=== PATIENT | female | born 1950 | race Caucasian/White ===

== ENCOUNTER → 2018-07-01 11:00 | Outpatient (CLI) | payer MEDICARE, OTHER, MEDICAID, SELFPAY | PROVIDERS: PCP Family Medicine; Visit Provider Nurse Practitioner Family | DX: Z45.018 Encounter for adjustment and management of other part of cardiac pacemaker (principal); I49.5 Sick sinus syndrome; I10 Essential (primary) hypertension | CPT/HCPCS: 93280; 99213 ==

== ENCOUNTER 2018-09-19 07:00 | Outpatient (CLI) | payer MEDICARE, OTHER, MEDICAID, SELFPAY ==
[2018-09-19 11:22] LABS: Abs Immature Grans 0.02 k/cumm (0.0-0.09); Absolute Basophil Count 0.03 k/cumm (0.0-0.2); Absolute Eosinophil Count 0.12 k/cumm (0.0-0.7); Absolute Lymphocyte Count 1.11 k/cumm (1.2-3.4); Absolute Monocyte Count 0.48 k/cumm (0.11-0.7); Absolute Neutrophil Count 4.13 k/cumm (1.2-6.7); Basophils % 0.5; HCT 40.5 % (36.0-46.0); Immature Grans % 0.3; Lymphocytes % 18.8; Mean Corp. HGB Concentration 34.6 g/dL (32.0-36.0); Mean Corpuscular Volume 92.5 fL (80-95); Mean Platelet Volume 10.2 fL (8.0-11.0); Monocytes % 8.1; Neutrophils % 70.3; Platelet Count 196 x1000/uL (130-400); RBC 4.38 m/cumm (4.00-5.20); RBC Distribution Width 12.8 % (11.7-14.6); White Blood Cell Count 5.89 k/cumm (4.4-10.8)
[2018-09-19 11:35] LABS: ALT 24 U/L (12-78); AST 22 U/L (15-37); Albumin 3.4 g/dL (3.4-5.0); Alkaline Phosphatase 79 U/L (46-116); Anion Gap 9.5 mmol/L (3-11); BUN 11 mg/dL (7-18); Bilirubin, Total 0.7 mg/dL (0.2-1.0); CO2 30.5 mmol/L (21.0-32.0); CREATININE 0.76 mg/dL (0.55-1.02); Calcium 8.7 mg/dL (8.5-10.1); Chloride 101 mmol/L (98-107); Glucose 111 mg/dL (70-100); Potassium 3.3 mmol/L (3.5-5.1); Sodium 141 mmol/L (136-145)
== END 2018-09-19 07:20 ==
PROVIDERS: PCP Family Medicine; Visit Provider Nurse Practitioner Adult Health
DX: K58.9 Irritable bowel syndrome, unspecified (principal); C50.919 Malignant neoplasm of unspecified site of unspecified female breast
CPT/HCPCS: 36415; 80053; 85025

== ENCOUNTER 2018-10-08 00:58 | Outpatient (CLI) | payer MEDICARE, MEDICAID, SELFPAY ==
--- NOTE | 2018-10-08 08:01 | DI.CT_ITS ---
SYMPTOM/DIAGNOSIS: ABD PAIN, R10.9, VOMITING ABDOMEN AND PELVIC CT: Comparison is made with 06/17/17. Images were performed from the lung bases through the ischial tuberosities after IV and oral contrast. The previous anterior abdominal wall repair is seen which appears unchanged. No recurrent hernia is seen. There is no bowel dilatation or inflammatory changes. Suture material is again noted at the stomach. Pacemaker leads are seen. There are coronary artery calcifications. The heart size is normal. Dependent changes of mild atelectasis is seen at the lung bases. The patient is status post cholecystectomy. The liver, spleen, pancreas and right adrenal are unremarkable. There are stable left adrenal nodules. There are prominent renal pelves bilaterally, left greater than right, also unchanged. The uterus again appears mildly enlarged. The bladder is unremarkable. The aorta is normal in diameter. There are scattered tiny mesenteric lymph nodes, unchanged. IMPRESSION: No acute abnormality. Stable incidental findings as mentioned above.
[2018-10-08] MEDS: Breeza Beverage 473 ML BTL PO ×2 (08:38→08:39)
[2018-10-08] MEDS: Omnipaque 350 MG/ML 50 ML BTL PO (08:38)
[2018-10-08] MEDS: Omnipaque 350 MG/ML 100 ML BTL IJ (09:46)
== END 2018-10-08 01:18 ==
PROVIDERS: PCP Family Medicine; Visit Provider Family Medicine
DX: R10.9 Unspecified abdominal pain (principal); R11.10 Vomiting, unspecified; N85.2 Hypertrophy of uterus; Z90.49 Acquired absence of other specified parts of digestive tract
CPT/HCPCS: 74177; J3490; Q9967

== ENCOUNTER → 2019-02-03 14:09 | Outpatient (BNVA) | payer MEDICARE, OTHER, MEDICAID, SELFPAY | PROVIDERS: Visit Provider Nurse Practitioner Family | DX: G47.33 Obstructive sleep apnea (adult) (pediatric) (principal); I49.5 Sick sinus syndrome; I10 Essential (primary) hypertension; E66.01 Morbid (severe) obesity due to excess calories; Z45.018 Encounter for adjustment and management of other part of cardiac pacemaker | CPT/HCPCS: 93280; 99214 ==

== ENCOUNTER 2019-03-16 14:13 | Emergency (ER) | payer MEDICARE, MEDICAID, SELFPAY ==
[2019-03-16] VITALS (24 sets, daily range): BP systolic 120–151; BP diastolic 65–89; PULSE 61–71; RESP 13–24; TEMP 36.7; O2SAT 93–95
--- NOTE | 2019-03-16 15:01 | DI.US_ITS ---
SYMPTOMS/DIAGNOSIS: SWELLING, CALF TENDERNESS, ? DVT DUPLEX VENOUS ULTRASOUND, RIGHT LOWER EXTREMITY: Duplex evaluation of the deep venous system was performed according to the usual protocol. The deep veins are freely compressible throughout to the level of the popliteal veins. There is normal Doppler flow visible throughout and there is excellent flow augmentation with manual calf compression. CONCLUSION: No evidence of deep venous thrombosis.
[2019-03-16 15:16] LABS: Abs Immature Grans 0.01 k/cumm (0.0-0.09); Absolute Basophil Count 0.02 k/cumm (0.0-0.2); Absolute Eosinophil Count 0.12 k/cumm (0.0-0.7); Absolute Monocyte Count 0.55 k/cumm (0.11-0.7); Absolute Neutrophil Count 3.86 k/cumm (1.2-6.7); Basophils % 0.3; HCT 40.5 % (36.0-46.0); Immature Grans % 0.2; Lymphocytes % 23.5; Mean Corp. HGB Concentration 34.6 g/dL (32.0-36.0); Mean Corpuscular Hemoglobin 31.6 pg (27.0-33.0); Mean Corpuscular Volume 91.4 fL (80-95); Mean Platelet Volume 9.6 fL (8.0-11.0); Monocytes % 9.2; Neutrophils % 64.8; Platelet Count 218 x1000/uL (130-400); RBC 4.43 m/cumm (4.00-5.20); RBC Distribution Width 12.7 % (11.7-14.6); White Blood Cell Count 5.96 k/cumm (4.4-10.8)
[2019-03-16] MEDS: Aspirin 81 MG CHEW 324 MG CH (15:16)
--- NOTE | 2019-03-16 15:25 | NUR.NOTE ---
[employer] interrogation completed and transmitted, aware Nursing Note:
[2019-03-16 15:33] LABS: PTT Activated 25.1 sec (21.0-31.4); Prothrombin Time 9.5 sec (9.3-11.0)
[2019-03-16 15:41] LABS: ALT 29 U/L (12-78); AST 19 U/L (15-37); Albumin 3.7 g/dL (3.4-5.0); Alkaline Phosphatase 89 U/L (46-116); Anion Gap 6.8 mmol/L (3-11); BUN 12 mg/dL (7-18); Bilirubin, Total 0.8 mg/dL (0.2-1.0); CO2 31.2 mmol/L (21.0-32.0); CREATININE 0.72 mg/dL (0.55-1.02); Calcium 9.1 mg/dL (8.5-10.1); Chloride 102 mmol/L (98-107); Glucose 98 mg/dL (70-100); Lipase 88 U/L (73-393); NT-proBNP 62 pg/mL; Potassium 3.3 mmol/L (3.5-5.1); Sodium 140 mmol/L (136-145); TSH (W/Ref FT4) 0.59 uIU/mL (0.358-3.74); Total Protein 7.5 g/dL (6.4-8.2)
[2019-03-16 15:43] LABS: Troponin I < 0.02 ng/mL (0.00-0.06)
--- NOTE | 2019-03-16 15:43 | W.ED.GENAD ---
Discharge Plan Disposition Patient Disposition: HOME Condition: Good Discharge Details Chief Complaint: Chest Pain Clinical Impression: Chest pain Primary Care Provider: Serge Ventura ED Provider: Ritchie Walters Home Meds and New Rx's Prescriptions: No Action dicyclomine 10 mg capsule 10 mg PO AC Qty: 30 RF: 0 ondansetron 4 MG tablet,disintegrating 4 mg PO Q6H PRN PRNQty: 30 RF: 0 trazodone 50 MG tablet 50 mg PO PRN Qty: 90 RF: 4 pravastatin 20 MG tablet 20 mg PO HS Qty: 90 RF: 4 losartan 100 MG tablet 100 mg PO DAILY Qty: 90 RF: 4 cholecalciferol (vitamin D3) 1,000 unit capsule 2,000 unit PO DAILY Qty: 90 RF: 4 citalopram [Celexa] 20 mg tablet 20 mg PO DAILY Qty: 90 RF: 4 hydrochlorothiazide 25 mg tablet 25 mg PO DAILY Qty: 90 RF: 4 levothyroxine 125 mcg tablet 125 mcg PO DAILY Qty: 90 RF: 4 ibuprofen 600 MG tablet 600 mg PO Q6H Qty: 40 RF: 1 Discharge Instructions Instructions: Chest Pain (ED) Additional Instructions: Please follow-up with your primary care provider about the lung findings noted on your CT scan. If you notice any worsening of your symptoms, or any new symptoms such as vomiting, diarrhea, fever, chills, shortness of breath, chest pain, numbness, weakness, or fainting , please return immediately to the emergency department for reevaluation. Please follow up with your primary care provider as soon as possible for reassessment and reevaluation. As always, it was a pleasure participating in your medical care today. Referrals: Serge Ventura MD [Primary Care Provider] - Medical Decision Making This is a 68-year-old female with a past medical history of breast cancer 1999 [id number], sinus node disease requiring a pacemaker, chronic chest pain with a negative stress test 1 year ago, who presents today for evaluation of a brief episode of chest pain that occurred 1 hour ago and lasted 20 minutes while she was sitting. No exertional component, she describes it as a pinching sensation in her left chest. It went away on its own. She did have a mild associated pleuritic component with some mild shortness of breath. All of which is now resolved without intervention. She states that it feels similar to her chronic chest pain however the pleuritic and shortness of breath component does appear to be new. She denies any other concerning complaints of cough, fever, chills, hemoptysis, or other abnormalities. Initial EKG is benign for any evidence of ACS or significant abnormality. Ultrasound of the lower extremity demonstrates no evidence of DVT, d-dimer slightly elevated, we will get a CT angios for further evaluation and rule out PE. Signs and symptoms at this time appear inconsistent with cardiac etiology, especially if she is asymptomatic now. Pacemaker was interrogated and shows no evidence of acute events today or even recently. Initial troponin is negative, electrolytes are well within normal limits aside for slightly low potassium at 3.3 which we will correct with oral potassium. We will get a 3-hour troponin on the patient, repeat EKG at that time, and reassess 6:47 PM Initial troponin was normal, repeat troponin and serial EKGs are all within normal limits. CT angiogram demonstrates no evidence of PE, however radiology/virtual radiology does read a patchy groundglass opacities with 13 potential differentials. However the patient has no complaints of cough, continued shortness of breath, continued chest pain, chronic productive cough, hypoxemia, tachycardia, hypotension, trauma to her lungs, hemoptysis, or other etiology. Clinically she shows no signs of clinical pneumonia, clinical boop, clinical severe pulmonary edema. Stable vital signs, no evidence of respiratory distress whatsoever I do not feel that any emergent further pulmonary imaging is indicated, nor do I think there is an indication for admission. We will recommend close follow-up with her PCP about these pulmonary findings, however I feel it is most likely mild chronic lung disease rather than an acute process or etiology. Patient signs and symptoms are clinically inconsistent with ACS, dissection or PE or severe pneumonia. The patient is feeling much better and is asking to go home. She will be discharged home with close follow-up with her PCP I have extensively reviewed the treatment plan and discharge instructions with the patient. I have addressed all patient concerns at this time. The patient was made aware of what symptoms to monitor for that would warrant a return to the emergency department. Discussed the plan with the patient, they demonstrate verbal understanding and agreement with our assessment and plan at this time. EKG 15: 54 Rate 65, intervals normal, sinus rhythm, no significant ST elevations or depressions, T wave inversion is present in V1, Q waves in lead III and aVF. No other acute abnormality. EKG 18: 07 Rate 72, intervals normal, sinus rhythm, no significant ST elevation or depression, Q waves in lead III and aVF. No evidence of STEMI. CLINICAL HISTORY: 68 years old, female; Signs and symptoms; Other: Left cp with SOB and pleuritic cp w/ HX of cancer TECHNIQUE: Imaging protocol: Axial computed tomographic angiography images of the chest with intravenous contrast using CT angiography protocol. Coronal and sagittal reformatted images were created and reviewed. 3D rendering: MIP reconstructed images were created and reviewed. Radiation optimization: All CT scans at this facility use at least one of these dose optimization techniques: automated exposure control; mA and/or kV adjustment per patient size (includes targeted exams where dose is matched to clinical indication); or iterative reconstruction. Contrast material: OMNIPAQUE 350; Contrast volume: 100 ml; Contrast route: IV; COMPARISON: No relevant prior studies available. FINDINGS: Tubes, catheters and devices: Transvenous pacemaker leads Pulmonary arteries: No evidence of pulmonary embolus to the segmental level. Aorta: No aneurysm of the aorta. No dissection of the aorta. Lungs: Patchy bilateral groundglass opacities in the lung bolanos. Pleural space: Normal. No pneumothorax. No pleural effusion. Heart: Normal. No cardiomegaly. No pericardial effusion. Adrenals: Complex left adrenal nodule 3.3 cm Stomach and bowel: Large ventral hernia containing stomach and loops of bowel. Surgery of the stomach Lymph nodes: Unremarkable. No enlarged lymph nodes. Bones/joints: Unremarkable. No acute fracture. Soft tissues: Unremarkable. Other findings: . IMPRESSION: 1. No evidence of pulmonary embolus to the segmental level. 2. No aneurysm of the aorta. 3. No dissection of the aorta. 4. Patchy bilateral groundglass opacities in the lung bolanos.Differential includes UIP, DIP , BOOP, early interstitial lung disease; alveolitis in pneumocystis pneumonia, viral pneumonia, or mycoplasmal pneumonia or ARDS; edema; hypersensitivity pneumonia; pulmonary hemorrhage; partial atelectasis.. 5. Large ventral hernia containing stomach and loops of bowel. Dictated and Authenticated by: Claire Armas MD. Ordering:MADINA Dugan MD HPI General Date/Time Provider Initiated Documentation: 03/16/19 14:51. HPI Narrative: This is a 68-year-old female with a past medical history of breast cancer in [id number] with surgical excision, sinus node disease requiring pacemaker, high cholesterol, multiple previous abdominal surgeries for hernia related issues, as well as chronic chest pain with a negative stress test on , who presents today for evaluation of brief left-sided chest pain with a pleuritic component. The episode lasted 20 minutes, it occurred roughly 1 hour ago. It occurred while she was sitting in her chair. She describes it as a pinching-like sensation in her left chest with no radiation anywhere else. She denies any chest pressure, chest heaviness, bandlike sensation, abdominal pain, nausea, vomiting or diarrhea. She denies any arm neck or shoulder pain. She had an associated pleuritic component with mild shortness of breath when this occurred. She denies any cough, hemoptysis. She does admit to recent right-sided calf and leg pain which she states is also slightly atypical. She denies any history of PE or blood clot. She denies any previous history of myocardial infarction. She is not on blood thinners. She denies any recent long trips or surgeries or procedures. She denies any other complaints at this time. She denies any other associated factors. She states that although the symptoms are very similar to the normal chronic regular chest pain that she gets, there is slightly atypical because of the pleuritic breathing component. Related Data Home Medications Medication Instructions Recorded Confirmed ondansetron 4 mg PO Q6H PRN PRN #30 tabef 12/25/16 02/03/19 pravastatin 20 mg PO HS #90 tab-cap 03/25/18 02/03/19 trazodone 50 mg PO PRN #90 tab 03/25/18 02/03/19 ibuprofen 600 mg PO Q6H #40 tab 05/16/18 02/03/19 losartan 100 mg PO DAILY #90 tab-cap 06/12/18 02/03/19 cholecalciferol (vitamin D3) 1,000 2,000 unit PO DAILY #90 tab-cap 09/29/18 02/03/19 unit capsule dicyclomine 10 mg capsule 10 mg PO AC #30 cap 09/30/18 02/03/19 citalopram 20 mg tablet 20 mg PO DAILY #90 tab-cap 02/14/19 03/26/19 hydrochlorothiazide 25 mg tablet 25 mg PO DAILY #90 tab-cap 01/01/19 02/03/19 levothyroxine 125 mcg tablet 125 mcg PO DAILY #90 tab-cap 01/01/19 02/03/19 Previous Rx's Medication Instructions Recorded pravastatin 20 mg PO HS #90 tab-cap 03/25/18 trazodone 50 mg PO PRN #90 tab 03/25/18 ibuprofen 600 mg PO Q6H #40 tab 05/16/18 losartan 100 mg PO DAILY #90 tab-cap 06/12/18 cholecalciferol (vitamin D3) 1,000 2,000 unit PO DAILY #90 tab-cap 09/29/18 unit capsule dicyclomine 10 mg capsule 10 mg PO AC #30 cap 09/30/18 citalopram 20 mg tablet 20 mg PO DAILY #90 tab-cap 12/25/18 hydrochlorothiazide 25 mg tablet 25 mg PO DAILY #90 tab-cap 01/01/19 levothyroxine 125 mcg tablet 125 mcg PO DAILY #90 tab-cap 01/01/19 Allergies Allergy/AdvReac Type Severity Reaction Status Date / Time Penicillins Allergy Severe Skin Rash Unverified 03/16/19 14:39 nickel Allergy Intermediate SWELLING Unverified 03/16/19 14:39 furosemide Allergy Unknown Unverified 03/16/19 14:39 diphenhydramine AdvReac Severe RESTLESSNES Unverified 03/16/19 14:39 S ropinirole HCl [From Requip] AdvReac Severe Visual Unverified 03/16/19 14:39 Disturbances ciprofloxacin [From Cipro] AdvReac Intermediate Skin Rash Unverified 03/16/19 14:39 duloxetine AdvReac Intermediate DIARRHEA Unverified 03/16/19 14:39 lamotrigine AdvReac Intermediate NAUSEA/VOMI Unverified 03/16/19 14:39 TING Latex, Natural Rubber AdvReac Intermediate Skin Rash Unverified 03/16/19 14:39 lisinopril AdvReac Intermediate COUGH Unverified 03/16/19 14:39 codeine AdvReac Unknown WIRED Unverified 03/16/19 14:39 metoclopramide AdvReac Unknown hullucinati Unverified 03/16/19 14:39 ons General Stated Complaint: Chest Pain JACQUI: 2 Review of Systems Review of Systems All systems reviewed & are unremarkable except as noted in HPI and below PFSH Surgical History Breast, Mastectomy Bilateral section Cholecystectomy Dilation and curettage Endometrial Biopsy Excision, Lipoma HERNIA REPAIR Open Carpal Tunnel release Pacemaker (~2007) Replacement of total knee joint Stomach Stapled Family History Mother Essential hypertension Diabetes Personal history of malignant neoplasm Hyperlipidemia Father Diabetes Personal history of malignant neoplasm Sister Hyperlipidemia Sister Myalgia and myositis Sister Personal history of malignant neoplasm Celiac disease Hyperlipidemia Depression Sister Polycythemia vera Hyperlipidemia Celiac disease Paternal Grandfather Personal history of malignant neoplasm Alcohol abuse Maternal Grandmother Essential hypertension Personal history of malignant neoplasm Paternal Grandmother Personal history of malignant neoplasm Maternal Grandfather Heart disease Son Depression Son Depression Substance abuse Social History Smoking/Tobacco Use Status: Never Alcohol Intake: never Drug use: Never Substance use type: does not use What type of physical activity do you participate in: walking Duration: 15-30 minutes/day Frequency: 3-4 times per week Marie/Yazidism: [place] Witness Agree to transfusion: No Do you feel safe at home: Yes Do you feel safe in your relationship?: Yes Exam Narrative Exam Narrative: 1.Const: Well-nourished, Well-developed, appearing stated age 2.Eyes: PERRL, no conjunctival injection, and symmetrical lids. 3.ENT: Atraumatic external nose and ears. Moist MM. Neck: Symmetric, trachea midline, No thyromegaly. 4.CVS: +S1/S2, No murmurs or gallops. Peripheral pulses 2+ and equal in all extremities. Brisk capillary refill in all extremities. 5.RESP: Unlabored respiratory effort. Clear to auscultation bilaterally. No wheezes rales or rhonchi 6.GI: Soft, Nontender/Nondistended, No hepatosplenomegaly. No guarding or rebound. 7.MSK: Normocephalic/Atraumatic, Extremities w/o deformity. No cyanosis or clubbing, Normal movement of all extremities. No significant swelling or edema, no pitting edema. Mild reproducible tenderness over the right calf and right posterior knee. No evidence of deformity. Dorsalis pedis, posterior tibial pulses are +2 bilaterally, capillary refill is brisk. No evidence of significant abnormality on exam. 8.Skin: Warm, Dry. No rashes or lesions. 9.Neuro: patient intake coordinator II-XII grossly intact. Sensation grossly intact, no focal neurologic deficits. 10.Psych: (AAO) x3. Appropriate mood and affect Course Vital Signs Temperature 36.7 C 03/16/19 14:34 Pulse 71 03/16/19 14:34 Respiratory Rate 18 03/16/19 14:34 Blood Pressure 135/89 03/16/19 14:34 Pulse Oximetry 95 03/16/19 14:34 Temperature 36.7 C 03/16/19 14:34 Temperature Source Skin 03/16/19 14:34 Pulse 71 03/16/19 14:34 Respiratory Rate 18 03/16/19 14:34 Blood Pressure 135/89 03/16/19 14:34 Blood Pressure Position Supine 03/16/19 14:34 Pulse Oximetry 95 03/16/19 14:34 Oxygen Delivery Method Room Air 03/16/19 14:34 Oxygen Flow Rate 0 03/16/19 14:34 Pain Level 0 03/16/19 14:34 Lab/Test Results Lab/Test Results: Laboratory Tests Range/Units 03/16/19 03/16/19 15:06 15:06 WBC (4.4-10.8) k/cumm 5.96 RBC (4.00-5.20) m/cumm 4.43 Hgb (12.0-15.5) g/dL 14.0 Hct (36.0-46.0) % 40.5 MCV (80-95) fL 91.4 MCH (27.0-33.0) pg 31.6 MCHC (32.0-36.0) g/dL 34.6 RDW (11.7-14.6) % 12.7 Plt Count (130-400) x1000/uL 218 MPV (8.0-11.0) fL 9.6 Immature Gran % 0.2 Neutrophils % 64.8 Lymphocytes % 23.5 Monocytes % 9.2 Eosinophils % 2.0 Basophils % 0.3 Absolute Neutrophils (1.2-6.7) k/cumm 3.86 Absolute Lymphocytes (1.2-3.4) k/cumm 1.40 Absolute Monocytes (0.11-0.7) k/cumm 0.55 Absolute Eosinophils (0.0-0.7) k/cumm 0.12 Absolute Basophils (0.0-0.2) k/cumm 0.02 PT (9.3-11.0) sec 9.5 INR (0.9-1.1) 1.0 APTT (21.0-31.4) sec 25.1
[2019-03-16 15:47] LABS: D-Dimer 598 ng/mlFEU (<500)
--- NOTE | 2019-03-16 15:49 | DI.CT_ITS ---
SYMPTOM/DIAGNOSIS: LT CHEST PAIN WITH SOB, H/O CA PE CHEST CT: CT angiography was performed with multi slice acquisition and multi planar and 3D reconstruction. CT scan of the chest was performed according to pulmonary embolus protocol. Comparison is made with 01/19/11. Comparison CT scan of the abdomen is 06/17/17. There is no evidence of a pulmonary embolus. The thoracic aorta is normal in caliber. No evidence of aneurysm or dissection is seen. Heart size is within normal limits. No significant pericardial effusion is seen. Pacing leads are in place. There is no significant thoracic adenopathy, pleural effusion or pneumothorax identified. There are patchy diffuse ground glass opacities in the lungs. The tracheobronchial tree is unremarkable. The upper abdominal images show a midline anterior abdominal wall hernia containing unremarkable loops of bowel. There are post surgical changes seen in the stomach. There is a left adrenal nodule. This has been present on prior examinations of the abdomen including examination from 06/17/17. Degenerative changes are seen in the spine. IMPRESSION: 1. No evidence of a pulmonary embolus, thoracic aortic dissection or aneurysm. 2. Patchy bilateral ground glass opacities within the lungs. These findings are nonspecific but include pneumonitis including UIP, DIP and BOOP, interstitial lung disease, alveolitis, viral pneumonia or other atypical pneumonias, pulmonary hemorrhage, atelectasis or edema. Please correlate clinically. 3. Again seen a large ventral hernia containing loops of bowel.
[2019-03-16] MEDS: Omnipaque 350 MG/ML 100 ML BTL IJ (16:08)
[2019-03-16] MEDS: Normal Saline Flush 10 ML SYR IVP (16:09)
--- NOTE | 2019-03-16 16:56 | DI.VRAD_ITS ---
EXAM: CT Angiography Chest With Contrast EXAM DATE/TIME: 03/16/2019 3:50 PM CLINICAL HISTORY: 68 years old, female; Signs and symptoms; Other: Left cp with SOB and pleuritic cp w/ HX of cancer TECHNIQUE: Imaging protocol: Axial computed tomographic angiography images of the chest with intravenous contrast using CT angiography protocol. Coronal and sagittal reformatted images were created and reviewed. 3D rendering: MIP reconstructed images were created and reviewed. Radiation optimization: All CT scans at this facility use at least one of these dose optimization techniques: automated exposure control; mA and/or kV adjustment per patient size (includes targeted exams where dose is matched to clinical indication); or iterative reconstruction. Contrast material: OMNIPAQUE 350; Contrast volume: 100 ml; Contrast route: IV; COMPARISON: No relevant prior studies available. FINDINGS: Tubes, catheters and devices: Transvenous pacemaker leads Pulmonary arteries: No evidence of pulmonary embolus to the segmental level. Aorta: No aneurysm of the aorta. No dissection of the aorta. Lungs: Patchy bilateral groundglass opacities in the lung bolanos. Pleural space: Normal. No pneumothorax. No pleural effusion. Heart: Normal. No cardiomegaly. No pericardial effusion. Adrenals: Complex left adrenal nodule 3.3 cm Stomach and bowel: Large ventral hernia containing stomach and loops of bowel. Surgery of the stomach Lymph nodes: Unremarkable. No enlarged lymph nodes. Bones/joints: Unremarkable. No acute fracture. Soft tissues: Unremarkable. Other findings: . IMPRESSION: 1. No evidence of pulmonary embolus to the segmental level. 2. No aneurysm of the aorta. 3. No dissection of the aorta. 4. Patchy bilateral groundglass opacities in the lung bolanos.Differential includes UIP, DIP , BOOP, early interstitial lung disease; alveolitis in pneumocystis pneumonia, viral pneumonia, or mycoplasmal pneumonia or ARDS; edema; hypersensitivity pneumonia; pulmonary hemorrhage; partial atelectasis.. 5. Large ventral hernia containing stomach and loops of bowel. Dictated and Authenticated by: Claire Armas MD. Ordering:MADINA Dugan MD
[2019-03-16] MEDS: Potassium Chloride 20 MEQ TABCR 40 MEQ PO (18:19)
[2019-03-16 18:29] LABS: Troponin I < 0.02 ng/mL (0.00-0.06)
== END 2019-03-16 18:55 | disposition home or self-care (01) ==
PROVIDERS: Emergency Provider Student in an Organized Health Care Education/Training Program; PCP Family Medicine
DX: R07.9 Chest pain, unspecified (principal); G89.29 Other chronic pain; R06.02 Shortness of breath; R91.8 Other nonspecific abnormal finding of lung field; R79.89 Other specified abnormal findings of blood chemistry; M79.661 Pain in right lower leg; I10 Essential (primary) hypertension; Z95.0 Presence of cardiac pacemaker; C50.919 Malignant neoplasm of unspecified site of unspecified female breast
CPT/HCPCS: 36415; 71275; 80053; 83690; 93005; 99285; 83880; 84443; 84484; 85025; 85379; 85610; 85730; 93010; 93971; J3490

== ENCOUNTER 2019-05-07 08:47 | Outpatient (REF) | payer MEDICARE, MEDICAID, SELFPAY ==
[2019-05-07 10:00] LABS: Bilirubin Negative (Negative); Blood Small (Negative); Clarity Cloudy (Clear); Glucose Negative (Negative); Ketones Negative (Negative); Leukocyte Esterase Large (Negative); Nitrite Positive (Negative); Specific Gravity 1.025 (1.005-1.025); Urobilinogen 0.2 EU/dL (Up TO 0.2); pH 5.5 (5-8)
[2019-05-07 10:14] LABS: WBC >50 HPF (0-5)
[2019-05-07 10:16] LABS: C & S Indicated? Yes
== END 2019-05-07 09:07 ==
LOC: LBN 08:47
PROVIDERS: PCP Family Medicine; Visit Provider Family Medicine
DX: R10.9 Unspecified abdominal pain (principal)
CPT/HCPCS: 87077; 81003; 81015; 87086; 87186

== ENCOUNTER 2019-09-18 01:50 | Outpatient (CLI) | payer OTHER, MEDICAID, SELFPAY ==
[2019-09-18 10:55] LABS: HCT 41.3 % (36.0-46.0); HGB 13.9 g/dL (12.0-15.5); Mean Corp. HGB Concentration 33.7 g/dL (32.0-36.0); Mean Corpuscular Hemoglobin 31.4 pg (27.0-33.0); Mean Corpuscular Volume 93.4 fL (80-95); Mean Platelet Volume 10.4 fL (8.0-11.0); Platelet Count 234 x1000/uL (130-400); RBC 4.42 m/cumm (4.00-5.20); RBC Distribution Width 13.3 % (11.7-14.6); White Blood Cell Count 6.54 k/cumm (4.4-10.8)
[2019-09-18 11:25] LABS: Anion Gap 9.4 mmol/L (3-11); BUN 11 mg/dL (7-18); CO2 30.6 mmol/L (21.0-32.0); CREATININE 0.75 mg/dL (0.55-1.02); Calcium 8.7 mg/dL (8.5-10.1); Chloride 105 mmol/L (98-107); Glucose 110 mg/dL (70-100); Potassium 3.2 mmol/L (3.5-5.1); Sodium 145 mmol/L (136-145)
[2019-09-22 07:36] LABS: T3,Free 3.3 pg/mL (2.8-5.3)
== END 2019-09-18 02:10 ==
PROVIDERS: PCP Family Medicine; Visit Provider Family Medicine
DX: I10 Essential (primary) hypertension (principal); R53.83 Other fatigue; R79.89 Other specified abnormal findings of blood chemistry
CPT/HCPCS: 36415; 80048; 85027; 84481

== ENCOUNTER 2019-10-05 02:06 | Outpatient (CLI) | payer OTHER, MEDICAID, SELFPAY ==
--- NOTE | 2019-10-05 13:46 | DI.US_ITS ---
EXAM: US PELVIS AND TRANSVAGINAL CLINICAL HISTORY: PAIN REGION OF LEFT OVARY, LLQ ABDOMINAL PAIN, R10.32 TECHNIQUE: Ultrasound performed using standard protocol. CT CHEST PE CTA from 03/16/2019 FINDINGS: Exam is limited by the patient's body habitus. The uterus measures 6.9 x 2.8 x 4 cm. The endometria l stripe was not seen. There is no gross evidence of fibroids. The ovaries were not able to be visu alized. Kidneys appear normal in size. There are bilateral parapelvic renal cysts. IMPRESSION: Limited exam due to patient body habitus. The ovaries were not able to be visualized.
== END 2019-10-05 02:26 ==
PROVIDERS: PCP Family Medicine; Visit Provider Family Medicine
DX: R10.32 Left lower quadrant pain (principal); N28.1 Cyst of kidney, acquired
CPT/HCPCS: 76830; 76856

== ENCOUNTER 2020-01-04 08:35 | Outpatient (CLI) | payer OTHER, MEDICAID, SELFPAY ==
[2020-01-04 11:00] LABS: Anion Gap 10.4 mmol/L (3-11); BUN 13 mg/dL (7-18); CO2 28.6 mmol/L (21.0-32.0); CREATININE 0.79 mg/dL (0.55-1.02); Calcium 8.8 mg/dL (8.5-10.1); Chloride 104 mmol/L (98-107); Glucose 121 mg/dL (74-106); Potassium 3.4 mmol/L (3.5-5.1); Sodium 143 mmol/L (136-145)
[2020-01-04 16:47] LABS: Hemoglobin A1C 5.7 % (3.8-5.6)
== END 2020-01-04 08:55 ==
DX: I10 Essential (primary) hypertension (principal); R73.01 Impaired fasting glucose
CPT/HCPCS: 36415; 80048; 83036

== ENCOUNTER → 2020-01-27 08:22 | Outpatient (BNVA) | payer OTHER, MEDICAID, SELFPAY | PROVIDERS: Visit Provider Physician Assistant | DX: I49.5 Sick sinus syndrome (principal); I10 Essential (primary) hypertension; Z45.018 Encounter for adjustment and management of other part of cardiac pacemaker | CPT/HCPCS: 93280; 99211; 99213 ==

== ENCOUNTER 2020-04-29 16:43 | Outpatient (REF) | payer OTHER, MEDICAID, SELFPAY | END 2020-04-29 17:03 | LOC: LBN 16:43 | PROVIDERS: Visit Provider Family Medicine | DX: R30.0 Dysuria (principal) | CPT/HCPCS: 87077; 87086; 87186 ==

== ENCOUNTER 2020-06-03 02:10 | Outpatient (CLI) | payer OTHER, MEDICAID, SELFPAY ==
[2020-06-03 13:56] LABS: Abs Immature Grans 0.02 k/cumm (0.0-0.09); Absolute Basophil Count 0.01 k/cumm (0.0-0.2); Absolute Eosinophil Count 0.07 k/cumm (0.0-0.7); Absolute Lymphocyte Count 1.67 k/cumm (1.2-3.4); Absolute Monocyte Count 0.59 k/cumm (0.11-0.7); Absolute Neutrophil Count 4.29 k/cumm (1.2-6.7); Basophils % 0.2; Eosinophils % 1.1; HCT 39.8 % (36.0-46.0); HGB 13.8 g/dL (12.0-15.5); Immature Grans % 0.3 %; Lymphocytes % 25.1; Mean Corp. HGB Concentration 34.7 g/dL (32.0-36.0); Mean Corpuscular Hemoglobin 31.9 pg (27.0-33.0); Mean Corpuscular Volume 92.1 fL (80-95); Mean Platelet Volume 9.7 fL (8.0-11.0); Monocytes % 8.9; Neutrophils % 64.4; Platelet Count 235 x1000/uL (130-400); RBC 4.32 m/cumm (4.00-5.20); RBC Distribution Width 12.9 % (11.7-14.6); White Blood Cell Count 6.65 k/cumm (4.4-10.8)
[2020-06-03 14:10] LABS: Hemoglobin A1C 5.7 % (3.8-5.6)
[2020-06-03 14:38] LABS: D-Dimer 475 ng/mlFEU (<500)
[2020-06-03 14:58] LABS: ALT 28 U/L (14-59); AST 21 U/L (15-37); Albumin 3.6 g/dL (3.4-5.0); Alkaline Phosphatase 92 U/L (46-116); Anion Gap 10.6 mmol/L (3-11); BUN 14 mg/dL (7-18); Bilirubin, Total 0.8 mg/dL (0.2-1.0); CO2 27.4 mmol/L (21.0-32.0); Calcium 9.3 mg/dL (8.5-10.1); Calculated LDL 102 mg/dL (<100); Chloride 104 mmol/L (98-107); Cholesterol 204 mg/dL (<200); Glucose 137 mg/dL (74-106); HDL Cholesterol 56 mg/dL (40-60); Potassium 3.4 mmol/L (3.5-5.1); Sodium 142 mmol/L (136-145); TSH (W/Ref FT4) 0.58 uIU/mL (0.36-3.74); Triglyceride 232 mg/dL (<150)
== END 2020-06-03 02:30 ==
PROVIDERS: Visit Provider Nurse Practitioner Family
DX: E03.9 Hypothyroidism, unspecified (principal); E66.01 Morbid (severe) obesity due to excess calories; E78.5 Hyperlipidemia, unspecified; F32.9 Major depressive disorder, single episode, unspecified; G47.33 Obstructive sleep apnea (adult) (pediatric); I10 Essential (primary) hypertension; K21.0 Gastro-esophageal reflux disease with esophagitis; R73.01 Impaired fasting glucose; Z95.0 Presence of cardiac pacemaker; G47.00 Insomnia, unspecified; Z01.818 Encounter for other preprocedural examination; R06.02 Shortness of breath
CPT/HCPCS: 36415; 80048; 80053; 80061; 83036; 84443; 85025; 85379

== ENCOUNTER 2020-06-09 00:39 | Outpatient (CLI) | payer OTHER, MEDICAID, SELFPAY ==
--- NOTE | 2020-06-09 09:00 | ETT_ITS ---
APPROVED REPORT Exam: Exercise Treadmill Patient Location: Out-Patient Room/Bed: Stress Nurse: Jayashree Baker RN BMI: 48.46 Baseline Rhythm: Sinus Rhythm Comment: 12/21 left lateral chest tightness on arrival. Indications: Chest Pain, Pre-Operative CV Evaluation, CAD, Dyspnea, SOB Medical History Medical History: Arrhythmia, CAD non obstructive, HTN, Hyperlipidemia, Pacemaker in situ, Obesity , O bstructive sleep apnea Cardiac Medications: Hydrochlorothiazide/ Microzide, Oretic, Losartan, Pravastatin Allergies: pcn, nickel, furosemide, diphenhydramine, ropinrole, ciprofloxacin, duloxetine,lamotrigine , latex, lisinopril, codeine, metoclopramide. Cardiac Risk Factors: HTN, Hyperlipidemia, FHX of CAD, SOB, Asthma, CVD Previous Cardiac Procedures: Pacemaker Pretest Chest Pain Characteristics: Non-exertional Chest pain, Dyspnea Exercise History: Sedentary Lung Sounds: Clear to auscultation Heart Sounds: Regular Stress Test Details Test: Exercise stress testing was performed using a Ru protocol. Rest Stress HR Resting HR Supine: 75 bpm Max Heart Rate (APMHR): 151 bpm Resting HR Standin bpm Target HR (85% APMHR): 128 bpm Max HR Achieved: 138 bpm % of APMHR: 91 Recovery HR: 85 bpm HR response to stress: Accelerated HR response to stress BP Resting BP Supine: 130/78 mmHg Resting BP Standin/80 mmHg Max BP: 160/100 mmHg Recovery BP: 138/96 mmHg BP response to stress: Normal blood pressure response to stress. ECG Resting ECG: Sinus Rhythm Stress ECG: Sinus Tachycardia Maximum ST Deviation: 1.2 mm Arrhythmia: None Recovery ECG: Sinus Rhythm Recovery Arrhythmia: None Clinical Reason for Termination: Fatigue, Chest pain/Anginal equivalent, Dyspnea, Target HR Achieved Stress Symptoms: Chest pain, Dyspnea Exercise duration: 1 min33 sec Highest Stage Reached: 1 Exercise capacity: 3.56 METs Functional Capacity: Markedly diminished capacity Stress ECG Conclusion 1. The resting electrocardiogram was within normal limits 2. Patient exercised on the Ru protocol and completed a workload of 3.56 METS. This demonstrates poor exercise tolerance. 3. Rapid heart rate increase with activity suggests deconditioning. The patient did achieve 91% of p redicted heart rate for age 4. Normal blood pressure response to exercise 5. Electrocardiographically the test was negative for myocardial ischemia 6. There were no significant dysrhythmias Critical Notification Critical Value: No
== END 2020-06-09 00:59 ==
PROVIDERS: Visit Provider Nurse Practitioner Family
DX: R07.9 Chest pain, unspecified (principal); Z01.810 Encounter for preprocedural cardiovascular examination; I25.10 Atherosclerotic heart disease of native coronary artery without angina pectoris; E66.9 Obesity, unspecified; G47.33 Obstructive sleep apnea (adult) (pediatric); I10 Essential (primary) hypertension; Z95.0 Presence of cardiac pacemaker
CPT/HCPCS: 93016; 93018; 93017

== ENCOUNTER → 2020-07-08 10:09 | Outpatient (BNVA) | payer OTHER, MEDICAID, SELFPAY | PROVIDERS: Visit Provider Internal Medicine Cardiovascular Disease | DX: I49.5 Sick sinus syndrome (principal); Z95.0 Presence of cardiac pacemaker; Z01.810 Encounter for preprocedural cardiovascular examination | CPT/HCPCS: 99202; 99214 ==

== ENCOUNTER → 2020-08-17 08:22 | Outpatient (BNVA) | payer OTHER, MEDICAID, SELFPAY | PROVIDERS: Visit Provider Internal Medicine Cardiovascular Disease | DX: I49.5 Sick sinus syndrome (principal); R00.2 Palpitations; Z45.010 Encounter for checking and testing of cardiac pacemaker pulse generator [battery] | CPT/HCPCS: 93279; 99212 ==

== ENCOUNTER 2020-09-06 00:57 | Outpatient (CLI) | payer OTHER, MEDICAID, SELFPAY ==
--- NOTE | 2020-09-06 09:15 | DI.CT_ITS ---
EXAM: CT CHEST WO CLINICAL HISTORY: DYSPNEA,R06.00 TECHNIQUE: COMPARISON: CT CT CHEST PE CTA from 03/16/2019 FINDINGS: CT examination of the chest was performed without contrast administration. Images obtained through the upper abdomen show large ventral hernia containing portions of stomach an d bowel. There is prior gastric surgery and there is a prior cholecystectomy.. There is a stable 33 millimeter in diameter left adrenal mass containing macroscopic fat consistent with a benign adenoma .. An additional 13 millimeter left adrenal nodule is also seen, these findings are unchanged from p rior CT of March 2019. Visualized liver, spleen, and pancreas are unremarkable. There is cardiac pacemaker in position. There is no mediastinal or hilar adenopathy. Tracheobronchi al tree appears intact. The lungs are clear except for a small calcified right upper lobe pulmonary nodule.. No pleural based mass or pleural effusion. Pulmonary architecture as visualized appears un remarkable. There is a 42 millimeter in diameter ectatic ascending aorta. IMPRESSION: No evidence of acute process. Incidental findings as described above. RADIATION DOSE DELIVERED: 778.71mGy.cm Total DLP
== END 2020-09-06 01:17 ==
PROVIDERS: Visit Provider Internal Medicine
DX: R06.00 Dyspnea, unspecified (principal); Z95.0 Presence of cardiac pacemaker; K43.9 Ventral hernia without obstruction or gangrene
CPT/HCPCS: 71250

== ENCOUNTER → 2020-09-14 13:12 | Outpatient (BNVA) | payer OTHER, MEDICAID, SELFPAY | PROVIDERS: Visit Provider Internal Medicine Cardiovascular Disease | DX: I49.5 Sick sinus syndrome (principal); Z45.018 Encounter for adjustment and management of other part of cardiac pacemaker; T81.89XA Other complications of procedures, not elsewhere classified, initial encounter; R60.9 Edema, unspecified; R00.2 Palpitations | CPT/HCPCS: 93280; 99212 ==

== ENCOUNTER 2020-09-16 04:17 | Outpatient (CLI) | payer OTHER, MEDICAID, SELFPAY ==
--- NOTE | 2020-09-16 07:55 | DI.RAD_ITS ---
EXAM: XR CHEST 2V PA LATERAL CLINICAL HISTORY: examine pacemaker site for foreign body,SWELLING SURGICAL SITE,T81.89XA, TECHNIQUE: 2D digital imaging was performed. COMPARISON: No exams were available for comparison FINDINGS: MEDIASTINUM: Normal. HEART: Normal. PULMONARY VASCULATURE: Normal. LUNGS: Clear. PLEURAL SPACE: No pleural effusion or pneumothorax. BONE:Within normal limits for the patient's age. OTHER FINDINGS:Transvenous cardiac pacing device in good position. No radiopaque foreign bodies in t he soft tissues. IMPRESSION: No acute pulmonary findings. DATA REPOSITORY: RADIATION DOSE DELIVERED:
== END 2020-09-16 04:37 ==
PROVIDERS: Visit Provider Internal Medicine Cardiovascular Disease
DX: T81.89XA Other complications of procedures, not elsewhere classified, initial encounter (principal); Z95.0 Presence of cardiac pacemaker; M79.89 Other specified soft tissue disorders
CPT/HCPCS: 71046

== ENCOUNTER 2020-09-16 13:58 | Outpatient (REF) | payer OTHER, MEDICAID, SELFPAY | END 2020-09-16 14:18 | LOC: LBN 13:58 | PROVIDERS: Visit Provider Nurse Practitioner Family | DX: R35.0 Frequency of micturition (principal) | CPT/HCPCS: 87077; 87086; 87186 ==

== ENCOUNTER 2021-01-17 20:03 | Outpatient (REF) | payer OTHER, MEDICAID, SELFPAY ==
[2021-01-17 22:11] LABS: HGB 13.8 g/dL (11.2-15.7); MCHC 34.5 % (32.0-36.0); MCV 92.8 fL (80-95); MPV 10.9 fL (8.0-11.0); Platelet Count 227 10^3/uL (130-400); RBC 4.31 10^6/uL (3.93-5.22); RDW 12.6 % (11.7-14.6); RDW-SD 42.7 fL; WBC 6.12 10^3/uL (4.4-10.8)
[2021-01-17 22:28] LABS: ALT 34 U/L (14-59); AST 23 U/L (15-37); Albumin 3.7 g/dL (3.4-5.0); Alkaline Phosphatase 98 U/L (46-116); Anion Gap 9.2 mmol/L (3-11); BUN 12 mg/dL (7-18); Bilirubin, Total 0.7 mg/dL (0.2-1.0); CO2 28.8 mmol/L (21.0-32.0); CREATININE 0.8 mg/dL (0.55-1.02); Calcium 9.2 mg/dL (8.5-10.1); Chloride 104 mmol/L (98-107); Glucose 113 mg/dL (74-106); Potassium 3.9 mmol/L (3.5-5.1); Sodium 142 mmol/L (136-145); Vitamin B12 1952 pg/mL (193-986)
[2021-01-17 22:34] LABS: TSH (W/Ref FT4) 0.69 uIU/mL (0.36-3.74)
== END 2021-01-17 20:04 | disposition home or self-care (01) ==
LOC: NCHCN 20:03
PROVIDERS: PCP Nurse Practitioner Family; Visit Provider Family Medicine
DX: R60.0 Localized edema (principal); E53.8 Deficiency of other specified B group vitamins; R73.01 Impaired fasting glucose; E87.6 Hypokalemia; E03.9 Hypothyroidism, unspecified
CPT/HCPCS: 80053; 85027; 82607; 84443

== ENCOUNTER → 2021-01-25 12:46 | Outpatient (BNVA) | payer OTHER, MEDICAID, SELFPAY | PROVIDERS: PCP Nurse Practitioner Family; Visit Provider Physician Assistant | DX: I49.5 Sick sinus syndrome (principal); Z45.018 Encounter for adjustment and management of other part of cardiac pacemaker | CPT/HCPCS: 93280 ==

== ENCOUNTER → 2021-07-26 10:34 | Outpatient (BNVA) | payer OTHER, MEDICAID, SELFPAY | PROVIDERS: PCP Nurse Practitioner Family; Referring Provider Nurse Practitioner Family; Visit Provider Physician Assistant | DX: I49.5 Sick sinus syndrome (principal); R00.2 Palpitations; Z45.018 Encounter for adjustment and management of other part of cardiac pacemaker | CPT/HCPCS: 93280; 99212 ==

== ENCOUNTER → 2021-08-03 14:01 | Outpatient (BNVA) | payer MEDICARE, MEDICAID, SELFPAY | PROVIDERS: Visit Provider Internal Medicine Cardiovascular Disease | DX: R00.2 Palpitations (principal); Z95.0 Presence of cardiac pacemaker; I10 Essential (primary) hypertension | CPT/HCPCS: 99213 ==

== ENCOUNTER 2021-08-07 07:11 | Outpatient (CLI) | payer OTHER, MEDICAID, SELFPAY ==
--- OUTSIDE RECORDS SUMMARY | 2021-08-07 07:16 | XMS_ITS ---
:1950 Author Care Team Providers Name Role Phone JATINDER CALIXTO Primary Care Provider [phone] Allergies Code Code System Name Reaction Severity Status Onset 2551 RxNorm Ciprofloxacin ? ? Active ? 2670 RxNorm Codeine ? ? Active ? 3498 RxNorm Diphenhydramine ? ? Active ? 18693 RxNorm Duloxetine ? ? Active ? 2763 RxNorm Furosemide ? ? Active ? 32094 RxNorm Lamotrigine ? ? Active ? [id number] RxNorm Latex ? ? Active ? 06591 RxNorm Lisinopril ? ? Active ? 6915 RxNorm Metoclopramide ? ? Active ? [id number] RxNorm Nickel ? ? Active ? Penicillins ? ? Active ? 32785 RxNorm Ropinirole ? ? Active ? Medications Name Status Start Date Stop Date ? ? Boostrix Tdap 2.5 Lf unit-8 mcg-5 Active ? Not available Lf/0.5 mL intramuscular syringe hydrochlorothiazide 25 mg tablet Active ? Not available levothyroxine 125 mcg tablet Active ? Not available losartan 100 mg tablet Active ? Not avail able nitrofurantoin Active ? Not available monohydrate/macrocrystals 100 mg capsule nortriptyline 10 mg capsule Active ? Not available potassium chloride ER 10 mEq Active ? Not available tablet,extended release potassium chloride ER 20 mEq Active ? Not available tablet,extended release pravastatin 20 mg tablet Active ? Not clint ilable ProAir HFA 90 mcg/actuation aerosol inhaler Active ? Not available Inhale 2 puffs every 4 hours by inhalation route. sulfamethoxazole 800 Active ? Not availab le mg-trimethoprim 160 mg tablet zolpidem 5 mg tablet Completed 11/21/2017 11/22/2017 1 (one) Tablet: as directed Problems Name Status Onset Date Source ? Dyspnea Active 09/02/2020 ? Hypothyroidism Active ? History Hyperlipidemia Active ? History Depressive Disorder Active ? History Hypersomnia Active ? History Obstructive Sleep Apnea Syndrome Active ? History Restless Legs Active ? History Joint Pain Active ? History Dizziness and Giddiness Active ? History Sleep Disorder Active ? History Irregular Sleep-wake Pattern Active ? His tory Snoring Active ? History Nausea Active ? History Cardiac Pacemaker in Situ Active ? Histor y Procedure by Method Unknown ? History Procedures Date Name Performed by ? ? Cardiac Surgery Information not avai lable Notes: Pacemaker placement ? Cholecystectomy Information not avai lable ? Gastric Bypass Information not avai lable ? Hernia Repair Information not avai lable ? Orthopedic Surgery Information not avai lable Notes: bilateral 09/02/2020 CT, Chest, W/o Contrast Xray [facility] [address] [place], [place] [address] (Work Place) Results Lab Results None recorded. Past Encounters 09/09/2020 Dyspnea; Obstructive Sleep Apnea Syndrom e Becca Britton MD: [address] [place] [address] Dr [address] [phone], Ph. 09/02/2020 Dyspnea; Obstructive Sleep Apnea Syndrom e Becca Britton MD: [address] [place] [address] Dr [address] [phone], Ph. Social History Tobacco Smoking Status Never Smoker Vaccine List Vaccine Type influenza, injectable, quadrivalent 10/01/2019 pneumococcal polysaccharide PPV23 11/11/2003 12/28/2019 Td (adult) 11/11/2006 Tdap 12/28/2019 Plan of Care Reminders Provider Appointments None ? ? recorded. Lab None ? ? recorded. Referral None ? ? recorded. Procedures None ? ? recorded. Surgeries None ? ? recorded. Imaging None ? ? recorded. Vitals 09/09/2020 11:30AM Office 15 Height Weight BMI Blood Pressure 151.13 cm 111.3 kg 48.7 kg/m2 136/76 mm[Hg] 09/02/2020 10:45AM Office 15 Height Weight BMI Blood Pressure 151.13 cm 111.3 kg 48.7 kg/m2 128/70 mm[Hg] 11/21/2017 Height Weight Blood Pressure 149.23 cm 108.41 kg 120/74 mm[Hg] 02/18/2013 Height Weight Blood Pressure 151.13 cm 114.08 kg 124/74 mm[Hg] 01/07/2013 Height Weight Blood Pressure 151.13 cm 114.31 kg 124/72 mm[Hg]
--- NOTE | 2021-08-25 08:46 | W.ZIOMONITOR ---
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 Predominant rhythm was sinus with an average heart rate of 75. Minimum was 65, maximum 113 There were very rare ventricular ectopic beats There were very rare atrial premature beats A total of 8 self-limited atrial runs occurred, the longest of which was 19 beats in duration. These were asymptomatic. There was no atrial fibrillation. There was negligible paced rhythm Patient triggered symptoms did not correspond to any dysrhythmia
== END 2021-08-07 07:12 | disposition home or self-care (01) ==
LOC: RT 07:14
PROVIDERS: PCP Physician Assistant; Visit Provider Internal Medicine Cardiovascular Disease
DX: R00.2 Palpitations (principal); Z95.0 Presence of cardiac pacemaker
CPT/HCPCS: 93246

== ENCOUNTER 2021-08-25 08:46 | Outpatient (CLI) | payer OTHER, MEDICAID, SELFPAY | END 2021-08-25 08:47 | LOC: CARDO 08-29 10:31 | PROVIDERS: PCP Physician Assistant; Referring Provider Internal Medicine Cardiovascular Disease; Visit Provider Internal Medicine Cardiovascular Disease | DX: R00.2 Palpitations (principal); Z95.0 Presence of cardiac pacemaker; I49.1 Atrial premature depolarization | CPT/HCPCS: 93248 ==

== ENCOUNTER 2021-10-03 14:17 | Outpatient (CLI) | payer OTHER, MEDICAID, SELFPAY ==
--- NOTE | 2021-10-03 | DI.CT_ITS ---
Exam(s) CT ABDOMEN PELVIS W EXAM: CT ABDOMEN PELVIS W INDICATION: ABD PAIN, R10.9, HERNIA REPAIR WITH MESH, ADHESIONS,DIARRHEA, INCREASING PA. COMPARISON: CT CT CHEST PE CTA from 03/16/2019 TECHNIQUE: FINDINGS: CT examination of the abdomen and pelvis was performed with a bolus infusion of 100 cc of Omnipaque 3 50. Images obtained through the lung bases are unremarkable Note is made pacer wires. There is coronary calcification. There are multiple vascular clips at. T here is a cholecystectomy.. The liver is unremarkable in appearance. bile ducts are CT normal. Pancreas appears normal. Spleen is unremarkable in appearance. Previously noted fat containing left adrenal lesions are again seen, no change in appearance comparis on prior CT of March 2019. There are apparent bilateral parapelvic renal cysts. No hydronephrosis. Nonobstructing left nephrol ithiasis noted. No ureteral calcification. Urinary bladder is essentially empty. Abdominal aorta is of normal diameter and no major vascular abnormality is seen. There is apparent prior abdominal wall ventral hernia repair with mesh in place. No recurrent hernia . No bowel obstruction.. No abdominal or pelvic adenopathy. BOAT MASTER structures appear intact. Appendix is not specifically visualized but there is no evidence of appendicitis.. No evidence of di verticulitis or bowel obstruction. IMPRESSION: No evidence of acute intra-abdominal process. RADIATION DOSE DELIVERED: 1,297.42mGy.cm Total DLP 1,297.42mGy.cm Total DLP CTDIvol RADIATION OPTIMIZATION: All CT scans at this facility use at least one of these dose optimization te chniques: automated exposure control; mA and/or kV adjustment per patient size (includes targeted exa ms where dose is matched to clinical indication); or iterative reconstruction.
[2021-10-03 15:10] LABS: Abs Immature Grans 0.02 10^3/uL (0.0-0.06); Absolute Basophil Count 0.03 10^3/uL (0.0-0.2); Absolute Eosinophil Count 0.11 10^3/uL (0.0-0.7); Absolute Lymphocyte Count 1.34 10^3/uL (1.2-3.4); Absolute Monocyte Count 0.65 10^3/uL (0.1-0.8); Absolute Neutrophil Count 5.46 10^3/uL (1.2-6.7); Basophils % 0.4; Eosinophils % 1.4; HGB 14.1 g/dL (11.2-15.7); Immature Grans % 0.3; Lymphocytes % 17.6; MCH 30.9 pg (27.0-33.0); MCHC 34.4 % (32.0-36.0); MCV 89.7 fL (80-95); MPV 10.5 fL (8.0-11.0); Monocytes % 8.5; Neutrophils % 71.8; Nucleated RBC 0 %; Platelet Count 167 10^3/uL (130-400); RBC 4.57 10^6/uL (3.93-5.22); RDW 12.7 % (11.7-14.6); WBC 7.61 10^3/uL (4.4-10.8)
[2021-10-03] MEDS: Omnipaque 350 MG/ML 50 ML BTL PO (15:15)
[2021-10-03] MEDS: Breeza Beverage 473 ML BTL PO (15:15)
[2021-10-03 15:19] LABS: ALT 48 U/L (14-59); AST 42 U/L (15-37); Albumin 3.6 g/dL (3.4-5.0); Alkaline Phosphatase 101 U/L (46-116); Anion Gap 6.6 mmol/L (3-11); BUN 15 mg/dL (7-18); Bilirubin, Total 0.5 mg/dL (0.2-1.0); CO2 28.4 mmol/L (21.0-32.0); CREATININE 0.8 mg/dL (0.55-1.02); Calcium 8.8 mg/dL (8.5-10.1); Chloride 104 mmol/L (98-107); Glucose 111 mg/dL (74-106); Potassium 3.6 mmol/L (3.5-5.1); Sodium 139 mmol/L (136-145); Total Protein 7.6 g/dL (6.4-8.2)
[2021-10-03] MEDS: Omnipaque 350 MG/ML 100 ML BTL IV (16:45)
[2021-10-03] MEDS: Normal Saline Flush 10 ML SYR IVP (16:47)
--- NOTE | 2021-10-03 17:26 | DI.VRAD_ITS ---
PROCEDURE INFORMATION: Exam: CT Abdomen And Pelvis With Contrast Exam date and time: 10/03/2021 2:05 PM Age: 71 years old Clinical indication: Other: Abd pain, r10.9, hernia repair with mesh, adhesions, diarrhea, increasing pa TECHNIQUE: Imaging protocol: Computed tomography of the abdomen and pelvis with contrast. Radiation optimization: All CT scans at this facility use at least one of these dose optimization techniques: automated exposure control; mA and/or kV adjustment per patient size (includes targeted exams where dose is matched to clinical indication); or iterative reconstruction. Contrast material: OMNIPAQUE 350; Contrast volume: 100 ml; Contrast route: INTRAVENOUS (IV); Other technique: GI contrast given. COMPARISON: CT Abdomen^ROUTINE ABDOMEN PELVIS WITH CONTRAST (Adult) 10/08/2018 9:31 AM FINDINGS: Tubes, catheters and devices: Pacemaker wire in place. Status post abdominal wall hernia repair with mesh placement, unchanged in appearance from previous exam. There do appear to be some bowel loops fixed anteriorly, unchanged. Liver: Hepatomegaly. No mass. Gallbladder and bile ducts: Status post cholecystectomy. Pancreas: Normal. No ductal dilation. Spleen: Normal. No splenomegaly. Adrenal glands: Mixed attenuation left adrenal lesions not significantly changed from prior study. The largest measures 3.5 cm. 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 Kidneys and ureters: Bilateral parapelvic renal cysts are unchanged. Stomach and bowel: See Tubes, catheters and devices finding. Appendix: No evidence of appendicitis. Intraperitoneal space: Unremarkable. No free air. No significant fluid collection. Vasculature: Unremarkable. No abdominal aortic aneurysm. Lymph nodes: Unremarkable. No enlarged lymph nodes. Urinary bladder: Bladder not well distended. Reproductive: Unremarkable as visualized. Bones/joints: Unremarkable. No acute fracture. Soft tissues: Calcifications in the subcutaneous fat of the flank regions presumably related to previous injection granulomas. IMPRESSION: Postsurgical changes, stable. No acute abnormality evident. Dictated and Authenticated by: Taryn Wan MD. Ordering:SPRING Del Real MD
== END 2021-10-03 14:37 ==
PROVIDERS: PCP Physician Assistant; Visit Provider Nurse Practitioner Family
DX: R10.9 Unspecified abdominal pain (principal)
CPT/HCPCS: 80053; 74177; 85025; J3490; Q9967

== ENCOUNTER 2021-12-07 02:28 | Outpatient (CLI) | payer MEDICARE, MEDICAID, SELFPAY ==
--- NOTE | 2021-12-07 | DI.DEXA_ITS ---
Exam(s) XR DEXA BONE DENSITY W/WO MACARIO EXAM: XR DEXA BONE DENSITY W/WO MACARIO CLINICAL HISTORY: OTHER SPECIFIED DISORDERS OF BONE DENSITY AND STRUCTURE, M85.88 TECHNIQUE: COMPARISON: Comparison 10/26/2009 and 05/15/2006 FINDINGS: Lateral Spine Image: Unremarkable. No compression deformities identified. Left hip: Total T-Score: -0.9. This compares to -0.7 on the prior examination. Total Z-Score: 0.6 T- and Z-scores: Within normal limits. Lumbar Spine: Total T-Score: -0.7. This compares to 0.3 on the prior examination. Total Z-Score: 1.5 T- and Z-scores: Within normal limits. IMPRESSION: No evidence of osteoporosis in the lumbar spine or left hip.
== END 2021-12-07 02:48 ==
PROVIDERS: PCP Physician Assistant; Visit Provider Physician Assistant
DX: M85.88 Other specified disorders of bone density and structure, other site (principal)
CPT/HCPCS: 77080

== ENCOUNTER 2022-05-25 16:20 | Outpatient (REF) | payer MEDICARE, MEDICAID, SELFPAY ==
[2022-05-25 21:00] LABS: Bilirubin Negative (Negative); Blood Trace-intact (Negative); Clarity Cloudy (Clear); Glucose Negative (Negative); Ketones Negative (Negative); Leukocyte Esterase Small (Negative); Nitrite Positive (Negative); Specific Gravity >= 1.030 (1.005-1.025); Urobilinogen 0.2 EU/dL (Up TO 0.2)
[2022-05-25 21:13] LABS: Bacteria Packed HPF (Negative); C & S Indicated? C&S Done As Ordered; Crystals Few Calcium Oxalate HPF (Negative); Epithelial Cells Negative HPF (Negative); Mucus Negative (Negative); Other Cells Few Transitional (Negative); RBC 0-2 HPF (0-2); WBC >50 HPF (0-5)
== END 2022-05-25 16:21 | disposition home or self-care (01) ==
LOC: LBN 16:20
PROVIDERS: PCP Physician Assistant; Visit Provider Physician Assistant Medical
DX: N39.0 Urinary tract infection, site not specified (principal)
CPT/HCPCS: 87077; 81003; 81015; 87086; 87186

== ENCOUNTER 2022-05-27 15:34 | Outpatient (REF) | payer MEDICARE, MEDICAID, SELFPAY ==
[2022-05-26 16:47] LABS: Abs Immature Grans 0.04 10^3/uL (0.0-0.06); Absolute Basophil Count 0.04 10^3/uL (0.0-0.2); Absolute Lymphocyte Count 1.41 10^3/uL (1.2-3.4); Absolute Monocyte Count 0.55 10^3/uL (0.1-0.8); Absolute Neutrophil Count 5.34 10^3/uL (1.2-6.7); Basophils % 0.5; Eosinophils % 1.3; Immature Grans % 0.5; Lymphocytes % 18.9; MCHC 34.1 % (32.0-36.0); MCV 91 fL (80-95); MPV 10.4 fL (8.0-11.0); Monocytes % 7.4; Neutrophils % 71.4; Platelet Count 143 10^3/uL (130-400); RBC 4.51 10^6/uL (3.93-5.22); RDW 11.9 % (11.7-14.6); RDW-SD 39.4 fL; WBC 7.48 10^3/uL (4.4-10.8)
[2022-05-26 17:03] LABS: ALT 23 U/L (14-59); AST 18 U/L (15-37); Albumin 3.9 g/dL (3.4-5.0); Alkaline Phosphatase 89 U/L (46-116); Anion Gap 7.6 mmol/L (3-11); BUN 12 mg/dL (7-18); Bilirubin, Total 0.8 mg/dL (0.2-1.0); CO2 29.4 mmol/L (21.0-32.0); CREATININE 0.8 mg/dL (0.55-1.02); Calcium 9.1 mg/dL (8.5-10.1); Chloride 102 mmol/L (98-107); Glucose 114 mg/dL (74-106); Potassium 3.9 mmol/L (3.5-5.1); Sodium 139 mmol/L (136-145); Total Protein 7.2 g/dL (6.4-8.2)
== END 2022-05-27 15:35 | disposition home or self-care (01) ==
LOC: LBN 15:34
PROVIDERS: PCP Physician Assistant; Visit Provider Physician Assistant Medical
DX: N39.0 Urinary tract infection, site not specified (principal)
CPT/HCPCS: 80053; 85025

== ENCOUNTER 2022-05-30 15:52 | Outpatient (REF) | payer MEDICARE, MEDICAID, SELFPAY ==
[2022-05-30 15:57] LABS: Anion Gap 10.3 mmol/L (3-11); BUN 14 mg/dL (7-18); CO2 28.7 mmol/L (21.0-32.0); CREATININE 0.8 mg/dL (0.55-1.02); Calculated LDL 73 mg/dL (<100); Chloride 102 mmol/L (98-107); Cholesterol 157 mg/dL (<200); Glucose 112 mg/dL (74-106); HDL Cholesterol 66 mg/dL (40-60); Potassium 3.8 mmol/L (3.5-5.1); Sodium 141 mmol/L (136-145); Triglyceride 94 mg/dL (<150)
== END 2022-05-30 15:53 | disposition home or self-care (01) ==
LOC: NCHCN 15:52
PROVIDERS: PCP Physician Assistant; Visit Provider Physician Assistant
DX: E03.9 Hypothyroidism, unspecified (principal); I10 Essential (primary) hypertension; E78.5 Hyperlipidemia, unspecified
CPT/HCPCS: 80048; 80061; 84443

== ENCOUNTER 2022-06-22 17:32 | Outpatient (REF) | payer MEDICARE, MEDICAID, SELFPAY ==
[2022-06-22 19:19] LABS: HCT 37.5 % (36.0-46.0); HGB 12.8 g/dL (11.2-15.7); MCHC 34.1 % (32.0-36.0); MCV 91 fL (80-95); MPV 10.3 fL (8.0-11.0); Platelet Count 146 10^3/uL (130-400); RBC 4.13 10^6/uL (3.93-5.22); RDW 11.9 % (11.7-14.6); RDW-SD 39.3 fL; WBC 6.39 10^3/uL (4.4-10.8)
[2022-06-22 19:42] LABS: Anion Gap 7.5 mmol/L (3-11); BUN 9 mg/dL (7-18); CO2 31.5 mmol/L (21.0-32.0); CREATININE 0.7 mg/dL (0.55-1.02); Calcium 8.9 mg/dL (8.5-10.1); Chloride 105 mmol/L (98-107); Glucose 133 mg/dL (74-106); NT-proBNP 50 pg/mL (<300); Sodium 144 mmol/L (136-145)
== END 2022-06-22 17:33 | disposition home or self-care (01) ==
LOC: NCHCN 17:32
PROVIDERS: PCP Physician Assistant; Visit Provider Nurse Practitioner Family
DX: R06.00 Dyspnea, unspecified (principal); R60.9 Edema, unspecified; R34 Anuria and oliguria
CPT/HCPCS: 80048; 85027; 83880; 87086

== ENCOUNTER → 2022-08-01 11:28 | Outpatient (BNVA) | payer MEDICARE, MEDICAID, SELFPAY | PROVIDERS: PCP Physician Assistant; Visit Provider Physician Assistant | DX: Z95.0 Presence of cardiac pacemaker (principal); I49.5 Sick sinus syndrome; R00.2 Palpitations | CPT/HCPCS: 93280 ==

== ENCOUNTER → 2022-08-02 14:08 | Outpatient (BNVA) | payer MEDICARE, MEDICAID, SELFPAY | PROVIDERS: PCP Physician Assistant; Visit Provider Internal Medicine Cardiovascular Disease | DX: I10 Essential (primary) hypertension (principal); E66.01 Morbid (severe) obesity due to excess calories; K43.9 Ventral hernia without obstruction or gangrene; M54.9 Dorsalgia, unspecified; R06.02 Shortness of breath; Z95.0 Presence of cardiac pacemaker | CPT/HCPCS: 99213 ==

== ENCOUNTER 2022-09-18 16:55 | Outpatient (REF) | payer MEDICARE, MEDICAID, SELFPAY ==
[2022-09-18 15:54] LABS: Bilirubin Negative (Negative); Blood Small (Negative); Clarity Sl Cloudy (Clear); Glucose Negative (Negative); Ketones Negative (Negative); Leukocyte Esterase Moderate (Negative); Nitrite Positive (Negative); Specific Gravity >= 1.030 (1.005-1.025); Urobilinogen 0.2 EU/dL (Up TO 0.2)
[2022-09-18 16:15] LABS: Bacteria Many HPF (Negative); C & S Indicated? C&S Done As Ordered; Casts Negative LPF (Negative); Crystals Negative HPF (Negative); Epithelial Cells Many HPF (Negative); Mucus Negative (Negative); RBC >50 HPF (0-2); WBC >50 HPF (0-5)
== END 2022-09-18 16:56 | disposition home or self-care (01) ==
LOC: LBN 16:55
PROVIDERS: PCP Physician Assistant; Visit Provider Nurse Practitioner Family
DX: R34 Anuria and oliguria (principal)
CPT/HCPCS: 87077; 81003; 81015; 87086; 87186

== ENCOUNTER → 2022-09-25 02:57 | Outpatient (CLI) | payer MEDICARE, MEDICAID, SELFPAY ==
--- NOTE | 2022-09-25 10:29 | DI.US_ITS ---
APPROVED REPORT EXAM: Comprehensive 2D, Doppler, and color-flow Echocardiogram Patient Location: Out-Patient Button Facing Machine Operator: Sabrina Sanchez RDCS (AE) Indications: Evaluate LV and RV function, SOB, Pacemaker Other Information Study Quality: Adequate. Technically limited study due to body habitus, inability to position patient exam done supine. Conclusion Normal left ventricular wall thickness and chamber size. Estimated ejection fraction is 60 to 65%. Wall motion is normal Normal right ventricular size and systolic function Both atria are normal in size Device lead noted in the right heart Aortic valve is trileaflet and sclerotic without stenosis or regurgitation Normal tricuspid valve with moderate regurgitation. Estimated right ventricular systolic pressure is 28 mmHg Dilated ascending aorta measuring 4.05 cm Wall motion Left Ventricle The left ventricle is normal size. The left ventricular systolic function is normal. The left ventric ular ejection fraction is within the normal range. There is normal left ventricular wall thickness. T here is normal LV segmental wall motion. There is no ventricular septal defect visualized. LVEF is 60 -65%. Right Ventricle The right ventricle is normal size. The right ventricular systolic function is normal. The RVSP is 28 .3 mmHg. Pacemaker lead is present in the right ventricle. Atria The left atrium size is normal. The right atrium size is normal. The interatrial septum is intact wit h no evidence for an atrial septal defect. Aortic Valve The Aortic valve is sclerotic. Aortic valve is trileaflet. There is no aortic valvular stenosis. No a ortic regurgitation is present. Mitral Valve The mitral valve is normal in structure. No evidence of mitral valve stenosis. Trace mitral regurgita tion. Tricuspid Valve The tricuspid valve is normal in structure. There is no tricuspid valve stenosis. Moderate tricuspid regurgitation. Pulmonic Valve The pulmonary valve is normal in structure. There is no pulmonic valvular stenosis. There is no pulmo glenis valvular regurgitation. Great Vessels The aortic root is normal in size. The ascending aorta is moderately dilated. Aortic arch is not well visualized. IVC is normal in size and collapses >50% with inspiration. Pericardium There is no pericardial effusion. 2D Dimensions IVSD d PLAX 0.94 cm F: 0.6-1.0 LV Vol A2C d MOD 74.3 mL LVPW d PLAX 0.96 cm F: 0.6 - 1.0 LV Vol A4C d MOD 91.5 mL LVID d PLAX 4.21 cm F: 3.8 - 5.2 LA vol/ BSA A2C s A-L 14.2 mL/m2 LVDs 2.85 cm F: 2.2 - 3.5 LA vol/ BSA A4C s A-L 16.9 mL/m2 Ao Root d 3.01 cm F: 2.7 - 3.3 LA Vol/ BSA Biplane s A-L 15.8 mL/m2 RA Area A4C 11.38 cm2 LA Area A4C s MOD 13.69 cm2 RA Vol/ BSA A4C s A-L 12.1 mL/m2 LA Area A2C s MOD 12.26 cm2 Ao Asc Diam d 4.05 cm F: 2.3 - 3.1 LV EF A4C MOD 57.4 % LV EF Teichholz 59.4 % LV EF A2C MOD 64.2 % LVEF (Hill's) 61.89 % F: 54 - 74 LV EF Biplane MOD 61.9 % LV Volume 64.57 mL F: 46 - 106 SV 52.56 mL LV Volume Index 33.63 mL/m2 F: 29 - 61 SV Index 27.37 mL/m2 LV Vol Biplane MOD 84.9 mL FS 31.20 % M-Mode TAPSE 1.68 cm (M/F) >1.7 LV Diastology E/A Ratio 0.9 MV E Vmax 0.80 (0.4-1.3 m/s) MV A Vmax 0.90 (0.4-1.3 m/s) MV E/A Ratio 0.86 Aortic Valve LVOT Area 3.14 cm2 AoV Area Vmax 2.38 cm2 LVOT Vmax 1.23 m/s AoV Area/ BSA (Vmax) 1.24 cm2/m2 LVOT Mean Maico. 0.84 m/s CHERRIE Mean [place]. 2.24 cm2 LVOT Peak Grad 6.1 mmHg CHERRIE Mean [place]. Index 1.17 cm2/m2 LVOT Mean Grad 3.3 mmHg LVOT VTI 0.272 m LVOT Diam s 2.00 cm AoV Vmax 1.62 m/s Velocity Ratio 0.75 AoV Mean Ma[place]. 1.18 m/s AoV Peak Grad 10.5 mmHg LVOT SV 85.67 mL AoV Mean Grad 6.1 mmHg AoV VTI 0.329 m AoV Area VTI 2.60 cm2 AoV Area/ BSA (VTI) 1.36 cm/m2 Mitral Valve MV DT 210 (160-240 msec) MV PHT 61 msec MV Area PHT 3.61 cm2 MV VTI 0.390 m MV Area VTI 2.20 (4.0-6.0 cm2) Pulmonary Valve PV Vmax 1.00 (0.5-1.5 m/s) RVOT Peak Gr. 1.69 mmHg PV Peak Grad 4.0 mmHg RVOT Mean Gr. 1.10 mmHg PV Mean Grad 2.0 mmHg RVOT VTI 0.177 m PV VTI 0.189 m RVOT Vmax 0.65 m/s Tricuspid Valve TR Peak Grad 25.2 mmHg TR Vmax 2.51 m/s RA Pressure 3.00 mmHg RVSP (TR) 28.3 mmHg
== END ==
PROVIDERS: PCP Physician Assistant; Visit Provider Internal Medicine Cardiovascular Disease
DX: R06.02 Shortness of breath (principal)
CPT/HCPCS: 93306

== ENCOUNTER 2022-10-19 16:12 | Outpatient (REF) | payer MEDICARE, MEDICAID, SELFPAY ==
--- NOTE | 2022-10-19 14:30 | SKI_PTH ---
PATIENT: Lulu Zapata LOC: [facility]#:[id number] AGE/SX: 72/F ROOM: RE10/19/[address]: Silvio Verdugo : 1950 BED: DIS: 10/19/2022 SPEC #: [id number] RECD: 10/22/22 12:14 STATUS: BETH RE #: [id number] DINAH: 10/19/22 14:[address]: Silvio Verdugo DEPT: Surgical Specimen RECD BY: Shilpi Berkowitz Tissues: 1 - SKIN BIOPSY(SHAVE/PUNCH) Procedures: IMMUNOPEROXIDASE STAIN SKIN LEVEL 4 Comments: [id number]
== END 2022-10-19 16:13 | disposition home or self-care (01) ==
LOC: NCHCN 16:12
PROVIDERS: PCP Physician Assistant; Visit Provider Physician Assistant
DX: C44.41 Basal cell carcinoma of skin of scalp and neck (principal)
CPT/HCPCS: 88305; 88361

== ENCOUNTER 2022-11-16 09:30 | Inpatient (IN) | payer MEDICARE, MEDICAID, SELFPAY ==
[2022-11-16] VITALS (8 sets, daily range): BP systolic 104–139; BP diastolic 62–82; PULSE 70–84; RESP 16–18; TEMP 36.3–36.7; O2SAT 91–97
--- NOTE | 2022-11-16 09:58 | W.ED.GENAD ---
Discharge Plan Disposition Patient Disposition: Admit to [facility] Condition: Stable Discharge Details Chief Complaint: Abd Prob Clinical Impression: Partial small bowel obstruction Primary Care Provider: Silvio Verdugo ED Provider: Harsha Mendoza [facility] Meds and New Rx's Prescriptions: No Action rosuvastatin 5 mg tablet 5 mg PO DAILY levothyroxine 125 mcg tablet 125 mcg PO DAILY Qty: 90 4RF cholecalciferol (vitamin D3) 1,000 unit capsule 2,000 unit PO DAILY Qty: 90 4RF spironolactone 50 mg tablet 50 mg PO DAILY Qty: 90 3RF trazodone 50 mg tablet 50 mg PO PRN Qty: 90 4RF Medical Decision Making This is a 72-year-old female with a past medical history that includes hyperlipidemia, hypertension, thyroid disease, multiple previous abdominal surgeries, morbid obesity, presenting for abdominal pain primarily lower abdominal pain that began yesterday after drinking coffee associated with nausea and vomiting. Plan to obtain IV access, give IV fluid, Zofran, morphine, obtain routine screening laboratory values including a lactate and obtain CT imaging of her abdomen pelvis with IV contrast. Patient received significant improvement of her symptoms with Zofran and morphine Laboratory values reveal mild nonspecific leukocytosis of 12.03, lactate of 1.5, renal function normal. Urinalysis without signs of obvious infection. Patient required another dose of 4 mg IV morphine for analgesia. Denies nausea. No vomiting while under my care. CT reveals mildly dilated fluid-filled small bowel indicates early partial bowel obstruction, no wall thickening or mesenteric stranding. Case discussed with surgery, Dr. Charles. As patient has no nausea or vomiting, will hold off on an NG tube. He is agreeable to admitting the patient. I will write bridging orders This documentation was generated using [employer] system, please disregard any oddities of phrase or misspellings. Medical Records Medical records reviewed: Yes I reviewed the patient's medical records. Imaging Data Radiologic Study: Attestation: I personally reviewed and interpreted this imaging study as follows: Imaging: CT Scan Radiologist's impression: Exam(s) CT ABDOMEN PELVIS W EXAM: CT ABDOMEN PELVIS W CLINICAL HISTORY: abd pain, multiple previous surgeries. TECHNIQUE: Imaging Protocol: Axial computed tomography images with coronal and sagittal reformatted images were created and reviewed CONTRAST MATERIAL: Intravenous: Omnipaque 350 Contrast volume:100 ml Oral: no COMPARISON: CT CT ABDOMEN PELVIS W from 10/03/2021 FINDINGS: ABDOMEN: Lung Bases: Clear. Heart mildly enlarged. Coronary artery calcifications and pacemaker. Liver: Normal density. No measurable mass. Gallbladder and biliary tract: Status post cholecystectomy. No radiodense calculus or dilation. Pancreas: Normal density, no abnormal calcifications or inflammatory process. Spleen: Normal. Kidneys: Normal size, contour and axis. No radiodense stones or obstructive uropathy. No masses seen. Parapelvic cysts bilaterally. Adrenal glands: No masses seen. Abdominal Aorta: Abdominal portion non-dilated. Stomach and small bowel: Suture material and surgical clips near the fundus of the stomach. Mildly dilated fluid-filled loops of small bowel in the upper and mid abdomen. No transition point identified. Soft tissues:: Stable appearance of dehiscence of the anterior abdominal wall. Prior calcifications again noted the inferior abdominal wall. PELVIS: Bladder: Nearly empty and not well evaluated. No gross wall thickening. No calculi.No focal mass. Bowel: No colonic wall thickening. Appendix not visualized. Redundant sigmoid. Some fluid is seen in right side of colon. Peritoneal cavity: No ascites, collection or mesenteric inflammatory response. Bones: Degenerative changes. Reproductive organs: Within normal limits. Lymph nodes: Unremarkable. Impression: Mildly dilated fluid-filled small bowel indicate early a partial small bowel obstruction. No wall thickening or mesenteric stranding. Lab Data Lab results reviewed: Yes I reviewed the patient's lab results. Labs: 11/16/22 11:49 Urine - Reflex from Ua Urine Culture - Pending Laboratory Tests Range/Units 11/16/22 11/16/22 11/16/22 10:18 10:18 10:18 WBC (4.4-10.8) 10^3/uL RBC (3.93-5.22) 10^6/uL Hgb (11.2-15.7) g/dL Hct (36.0-46.0) % MCV (80-95) fL MCH (27.0-33.0) pg MCHC (32.0-36.0) % RDW (11.7-14.6) % Plt Count (130-400) 10^3/uL MPV (8.0-11.0) fL Immature Gran % Neutrophils % Lymphocytes % Monocytes % Eosinophils % Basophils % Nucleated RBC % (0.0-0.3) % Absolute Neutrophils (1.2-6.7) 10^3/uL Absolute Lymphocytes (1.2-3.4) 10^3/uL Absolute Monocytes (0.1-0.8) 10^3/uL Absolute Eosinophils (0.0-0.7) 10^3/uL Absolute Basophils (0.0-0.2) 10^3/uL PT (9.3-11.0) sec 10.1 INR (0.9-1.1) 1.0 VBG Lactate (0.6-1.4) mmol/L 1.5 H Sodium (136-145) mmol/L Potassium (3.5-5.1) mmol/L Chloride (98-107) mmol/L Carbon Dioxide (21.0-32.0) mmol/L Anion Gap (3-11) mmol/L BUN (7-18) mg/dL Creatinine (0.55-1.02) mg/dL Est GFR (CKD-EPI 2020) (mL/min/1.73m2) Glucose (74-106) mg/dL Calcium (8.5-10.1) mg/dL Total Bilirubin (0.2-1.0) mg/dL AST (15-37) U/L ALT (14-59) U/L Alkaline Phosphatase (46-116) U/L Total Protein (6.4-8.2) g/dL Albumin (3.4-5.0) g/dL Lipase (73-393) U/L 85 Urine Color (Yellow) Urine Clarity (Clear) Urine pH (5-8) Ur Specific [place] (1.005-1.025) Urine Protein (Negative) mg/dL Urine Ketones (Negative) mg/dL Urine Blood (Negative) Urine Nitrite (Negative) Urine Bilirubin (Negative) Urine Urobilinogen (Up TO 0.2) EU/dL Ur Leukocyte Esterase (Negative) Urine RBC (0-2) HPF Urine WBC (0-5) HPF Ur Epithelial Cells (Negative) HPF Urine Crystals (Negative) HPF Urine Bacteria (Negative) HPF Urine Casts (Negative) LPF Urine Mucus (Negative) Ur Culture Indicated? Urine Glucose (Negative) mg/dL Range/Units 11/16/22 11/16/22 11/16/22 10:18 10:18 11:49 WBC (4.4-10.8) 10^3/uL 12.03 H RBC (3.93-5.22) 10^6/uL 5.20 Hgb (11.2-15.7) g/dL 16.0 H Hct (36.0-46.0) % 45.9 MCV (80-95) fL 88 MCH (27.0-33.0) pg 30.8 MCHC (32.0-36.0) % 34.9 RDW (11.7-14.6) % 12.7 Plt Count (130-400) 10^3/uL 172 MPV (8.0-11.0) fL 10.1 Immature Gran % 0.3 Neutrophils % 84.4 Lymphocytes % 8.5 Monocytes % 6.1 Eosinophils % 0.4 Basophils % 0.3 Nucleated RBC % (0.0-0.3) % 0.0 Absolute Neutrophils (1.2-6.7) 10^3/uL 10.15 H Absolute Lymphocytes (1.2-3.4) 10^3/uL 1.02 L Absolute Monocytes (0.1-0.8) 10^3/uL 0.73 Absolute Eosinophils (0.0-0.7) 10^3/uL 0.05 Absolute Basophils (0.0-0.2) 10^3/uL 0.04 PT (9.3-11.0) sec INR (0.9-1.1) VBG Lactate (0.6-1.4) mmol/L Sodium (136-145) mmol/L 135 L Potassium (3.5-5.1) mmol/L 4.1 Chloride (98-107) mmol/L 101 Carbon Dioxide (21.0-32.0) mmol/L 23.9 Anion Gap (3-11) mmol/L 10.1 BUN (7-18) mg/dL 17 Creatinine (0.55-1.02) mg/dL 0.8 Est GFR (CKD-EPI 2020) (mL/min/1.73m2) 78.24 Glucose (74-106) mg/dL 144 H Calcium (8.5-10.1) mg/dL 9.9 Total Bilirubin (0.2-1.0) mg/dL 1.0 AST (15-37) U/L 29 ALT (14-59) U/L 31 Alkaline Phosphatase (46-116) U/L 115 Total Protein (6.4-8.2) g/dL 8.7 H Albumin (3.4-5.0) g/dL 4.3 Lipase (73-393) U/L Urine Color (Yellow) Yellow Urine Clarity (Clear) Clear Urine pH (5-8) 5.5 Ur Specific [place] (1.005-1.025) >= 1.030 H Urine Protein (Negative) mg/dL Negative Urine Ketones (Negative) mg/dL Negative Urine Blood (Negative) Trace-intact H Urine Nitrite (Negative) Negative Urine Bilirubin (Negative) Small H Urine Urobilinogen (Up TO 0.2) EU/dL 0.2 Ur Leukocyte Esterase (Negative) Trace H Urine RBC (0-2) HPF 0-2 Urine WBC (0-5) HPF 0-2 Ur Epithelial Cells (Negative) HPF Rare Urine Crystals (Negative) HPF Negative Urine Bacteria (Negative) HPF Negative Urine Casts (Negative) LPF Negative Urine Mucus (Negative) Negative Ur Culture Indicated? Yes Urine Glucose (Negative) mg/dL Negative HPI General Mode of arrival: ambulatory. Date/Time Provider Initiated Documentation: 11/16/22 09:55. Limitations to Documentation: no limitations. Information obtained by: patient. History of Present Illness 72 year old F presents to the emergency department with the chief complaint of Abd Pain, described as severe, with intensity rated at 8. Quality is described as sharp, and is localized to the abdomen. Patient reports no radiation. Patient started experiencing this day(s) (1) and it has been constant. No relieving factors improve symptom(s), No exacerbating factors reported . Patient notes nausea/vomiting (Diarrhea). Patient did receive the following treatments prior to arrival, none Related Data Home Medications Medication Instructions Recorded Confirmed cholecalciferol (vitamin D3) 25 2,000 unit PO DAILY #90 tab-caps 09/29/18 11/16/22 mcg (1,000 unit) capsule levothyroxine 125 mcg tablet 125 mcg PO DAILY #90 tab-caps 02/03/21 11/16/22 spironolactone 50 mg tablet 50 mg PO DAILY #90 tabs 02/05/22 11/16/22 trazodone 50 mg tablet 50 mg PO PRN #90 tabs 04/12/22 11/16/22 rosuvastatin 5 mg tablet 5 mg PO DAILY 08/01/22 11/16/22 Previous Rx's Medication Instructions Recorded cholecalciferol (vitamin D3) 25 2,000 unit PO DAILY #90 tab-caps 09/29/18 mcg (1,000 unit) capsule levothyroxine 125 mcg tablet 125 mcg PO DAILY #90 tab-caps 02/03/21 spironolactone 50 mg tablet 50 mg PO DAILY #90 tabs 02/05/22 trazodone 50 mg tablet 50 mg PO PRN #90 tabs 04/12/22 Allergies Allergy/AdvReac Type Severity Reaction Status Date / Time Penicillins Allergy Severe Skin Rash Verified 11/16/22 09:40 nickel Allergy Intermediate SWELLING Verified 11/16/22 09:40 furosemide Allergy Unknown Verified 11/16/22 09:40 diphenhydramine AdvReac Severe RESTLESSNES Verified 11/16/22 09:40 S ropinirole HCl [From Requip] AdvReac Severe Visual Verified 11/16/22 09:40 Disturbances ciprofloxacin [From Cipro] AdvReac Intermediate Skin Rash Verified 11/16/22 09:40 duloxetine AdvReac Intermediate DIARRHEA Verified 11/16/22 09:40 lamotrigine AdvReac Intermediate NAUSEA/VOMI Verified 11/16/22 09:40 TING Latex, Natural Rubber AdvReac Intermediate Skin Rash Verified 11/16/22 09:40 lisinopril AdvReac Intermediate COUGH Verified 11/16/22 09:40 codeine AdvReac Unknown WIRED Verified 11/16/22 09:40 metoclopramide AdvReac Unknown hullucinati Verified 11/16/22 09:40 ons aspertame AdvReac Mild Skin Rash Uncoded 11/16/22 09:40 General Stated Complaint: Abd Prob JACQUI: 3 Review of Systems Constitutional Constitutional: Denies fever(s) and Denies weakness ENT Ears, Nose, Mouth, and Throat: Denies neck pain Cardiovascular Cardiovascular: Denies chest pain and Denies dyspnea Respiratory Respiratory: Denies cough and Denies dyspnea Gastrointestinal Gastrointestinal: Reports abdominal pain, Reports diarrhea, Reports nausea and Reports vomiting Genitourinary Genitourinary: Denies dysuria Musculoskeletal Musculoskeletal: Denies back pain and Denies neck pain Integumentary/Breasts Skin/Breast: Denies rash Neurologic Neurologic: Denies weakness Hematologic/Lymphatic Hematologic/Lymphatic: Denies easy bleeding and Denies easy bruising PFSH All Active Problems (Updated 11/16/22 @ 13:38 by GEORGIANA Will) Partial small bowel obstruction (Acute) Shortness of breath (Acute) Conductive hearing loss, external ear (Acute) Impacted cerumen, bilateral (Acute) Diarrhea (Acute) Edema, lower extremity (Acute) Pruritic condition (Acute) Palpitation (Acute) Encounter for postoperative wound check (Acute) Preoperative cardiovascular examination (Acute) Interstitial lung disease (Acute) Chronic abdominal pain (Acute) Tinnitus, bilateral (Acute) Sensorineural hearing loss of both ears (Acute) Elevated hemoglobin A1c (Acute) Family history of colon cancer (Chronic) Syncope (Chronic 10/10/07) Abnormal chest CT (Chronic) Sick sinus syndrome (Chronic) Vitamin D deficiency (Chronic 10/29/14) Ventral hernia without obstruction or gangrene (Chronic) recurrent; Repair; infected mesh 2001 and 2002 chronic abdominal pain Restless legs (Chronic) Pancreatic cyst (Chronic 08/19/15) [facility] [place] GI eval 08/25 EUS ?IPMN, FNA non diagnostic Obstructive sleep apnea syndrome (Chronic) SLEEP STUDY [facility] 03/20 2013 trying oral apparatus Nausea and vomiting (Chronic) Delayed gastric emptying; 07/13-NL Ba swallow; 01/12-EGD=+HH; 01/14-UGI + GERD; [id number] gastropathy 08/16 [facility] delayed gastric emptying due to vertical banded gastroplasty (stomach stapling for obesity) 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) repeat CT at [facility] due Jul 2016 Morbid obesity (Chronic) S/P stomach stapling Malignant neoplasm of female breast (Chronic 03/13/13) Right breast bx at [facility] [place]-+infiltration ductal Ca; + Lymph node; bilateral mastectomy + axillary node dissection Lymphedema of right arm (Chronic 07/11/17) Low back pain (Chronic) Knee pain (Chronic) 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) Impaired fasting glucose (Chronic 10/08/08) Hypothyroidism (Chronic) Hyperlipidemia (Chronic) Hydronephrosis, left (Chronic 08/19/15) incidental finding on abd CT [facility] (f/u [facility] urology) Gastroesophageal reflux disease with esophagitis (Chronic) gastric emptying delay; erosive gastropathy hiatal hernia 08/23/15 [facility] [place] [facility]; UPPER EUS Essential hypertension (Chronic 10/22/13) Disorder of vitamin B12 (Chronic) Depressive disorder (Chronic) Dental caries (Chronic 03/09/16) Conductive hearing loss, external ear (Chronic 07/12/16) Cardiac pacemaker in situ (Chronic) Medtronic dual lead pacemaker Original implant 03/15/2008 @ [facility] for syncope/SND Adapta L [id number] RA Medtronic [id number] 03/15/2008 RV Medtronic [id number] 03/15/200808/2020 - Battery depleted. Above generator/pacer replaced - see [facility] for details of pacer. Medical History Hyperpigmentation of oral cavity (09/08/13) Impacted cerumen, bilateral (07/12/16) Lipoma of buttock (03/03/15) Oral mucositis (07/12/16) Pacemaker battery depletion Postmenopausal bleeding (02/08/09) Swelling of surgical site Surgical History Breast, Mastectomy Bilateral w/axillary node dissection-right section X 3 Cholecystectomy Dilation and curettage Endometrial Biopsy NEG Excision, Lipoma RIGHT HIP HERNIA REPAIR X 6 History of section Open Carpal Tunnel release 1982 LEFT 1977 RIGHT Pacemaker (~2007) Replacement of total knee joint 2007 RIGHT 2011 LEFT Status post carpal tunnel release Status post cholecystectomy Status post hernia repair Status post total knee replacement Stomach Stapled 1989 Family History Mother Essential hypertension Diabetes Personal history of malignant neoplasm colon Hyperlipidemia Father Diabetes Personal history of malignant neoplasm colon, skin Sister Hyperlipidemia Sister Myalgia and myositis Sister Personal history of malignant neoplasm ovarian Celiac disease Hyperlipidemia Depression Sister Polycythemia vera Hyperlipidemia Celiac disease Paternal Grandfather Personal history of malignant neoplasm Liver Alcohol abuse Maternal Grandmother Essential hypertension Personal history of malignant neoplasm pancreatic Paternal Grandmother Personal history of malignant neoplasm Leukemia Maternal Grandfather Heart disease Son Depression Son Depression Substance abuse Other Family history of colon cancer Social History Smoking/Tobacco Use Status: Never Smoking risk assessment performed?: Yes Alcohol Intake: never Drug use: Never Substance use type: does not use What type of physical activity do you participate in: walking Duration: 15-30 minutes/day Frequency: 3-4 times per week Marie/Rastafari: Yazidi Agree to transfusion: No Do you feel safe at home: Yes Do you feel safe in your relationship?: Yes Exam Const General: cooperative and no acute distress Orientation: alert, awake and oriented x3 HENMT Head: normal to inspection, normocephalic and atraumatic Face and sinus: normal facial exam Mouth: moist mucous membranes Eyes Conjunctivae: conjunctivae normal Neck Neck: normal visual inspection, full ROM, no meningeal signs, trachea midline and supple Resp Effort & Inspection: normal respiratory effort and able to speak in complete sentences Auscultation: clear to auscultation bilaterally Cardio Rate: regular rate Rhythm: regular rhythm GI Inspection: obesity and scar Palpation: soft, not firm, no guarding, no pulsatile masses and tender in the LLQ and in the RLQ; with no rebound tenderness Auscultation: abnormal bowel sounds (Decreased bowel sounds lower quadrants) Other: What appears to be a ventral hernia superior of the umbilicus, nontender, nonfirm, no evidence of strangulation. Partially reducible. Difficult exam given her obesity and multiple previous surgeries Back/Spine/Pelvis Back: no CVA tenderness and No back tenderness Skin General skin exam: no rashes or lesions noted Neuro General: patient alert, patient awake, moves all extremities and no focal motor deficits Cognition: normal cognition Speech: speech normal Gait: normal gait Sensory Exam: no sensory deficits noted Extrem General: normal to inspection, full ROM and capillary refill normal Psych Appearance: grossly normal Mental Status: mental status grossly normal Course Vital Signs Vital signs: Vital Signs Temperature 36.3 C L 11/16/22 09:38 Pulse 84 11/16/22 09:38 Respiratory Rate 16 11/16/22 09:38 Blood Pressure 137/76 11/16/22 09:38 Pulse Oximetry 97 11/16/22 09:38 Temperature 36.3 C L 11/16/22 09:38 Temperature Source Skin 11/16/22 09:38 Pulse 84 11/16/22 09:38 Respiratory Rate 16 11/16/22 09:38 Respiratory Effort 11/16/22 09:42 Blood Pressure 137/76 11/16/22 09:38 Blood Pressure Position Sitting 11/16/22 09:38 Pulse Oximetry 97 11/16/22 09:38 Oxygen Delivery Method Room Air 11/16/22 09:38 Oxygen Flow Rate 0 11/16/22 09:38 Pain Level 10 11/16/22 09:38
[2022-11-16 10:29] LABS: Abs Immature Grans 0.04 10^3/uL (0.0-0.06); Absolute Basophil Count 0.04 10^3/uL (0.0-0.2); Absolute Eosinophil Count 0.05 10^3/uL (0.0-0.7); Absolute Lymphocyte Count 1.02 10^3/uL (1.2-3.4); Absolute Monocyte Count 0.73 10^3/uL (0.1-0.8); Absolute Neutrophil Count 10.15 10^3/uL (1.2-6.7); Basophils % 0.3; Eosinophils % 0.4; HCT 45.9 % (36.0-46.0); Immature Grans % 0.3; Lymphocytes % 8.5; MCH 30.8 pg (27.0-33.0); MCHC 34.9 % (32.0-36.0); MCV 88 fL (80-95); MPV 10.1 fL (8.0-11.0); Monocytes % 6.1; Neutrophils % 84.4; Platelet Count 172 10^3/uL (130-400); RDW 12.7 % (11.7-14.6); RDW-SD 41.1 fL; WBC 12.03 10^3/uL (4.4-10.8)
[2022-11-16 10:33] LABS: Lactate 1.5 mmol/L (0.6-1.4)
[2022-11-16] MEDS: Normal Saline 1,000 ML 1000 ML IV (10:40)
[2022-11-16] MEDS: Ondansetron 4 MG/2 ML VIAL IVP (10:40)
[2022-11-16] MEDS: MORPHine 4 MG/ML SYR IVP ×2 (10:45→12:10)
[2022-11-16 10:46] LABS: Prothrombin Time 10.1 sec (9.3-11.0)
[2022-11-16 10:59] LABS: Lipase 85 U/L (73-393)
[2022-11-16 11:03] LABS: ALT 31 U/L (14-59); AST 29 U/L (15-37); Albumin 4.3 g/dL (3.4-5.0); Alkaline Phosphatase 115 U/L (46-116); Anion Gap 10.1 mmol/L (3-11); BUN 17 mg/dL (7-18); CO2 23.9 mmol/L (21.0-32.0); CREATININE 0.8 mg/dL (0.55-1.02); Calcium 9.9 mg/dL (8.5-10.1); Chloride 101 mmol/L (98-107); Estimated GFR 78.24 (mL/min/1.73m2); Glucose 144 mg/dL (74-106); Potassium 4.1 mmol/L (3.5-5.1); Sodium 135 mmol/L (136-145); Total Protein 8.7 g/dL (6.4-8.2)
--- NOTE | 2022-11-16 11:24 | NUR.NOTE ---
Pt resting in bed. Rates pain 9/10 at this time. Nursing Note:
--- NOTE | 2022-11-16 11:44 | NUR.NOTE ---
Pt ambulatory to restroom. Steady gait noted. Nursing Note:
[2022-11-16 11:58] LABS: Bilirubin Small (Negative); Blood Trace-intact (Negative); Clarity Clear (Clear); Glucose Negative (Negative); Ketones Negative (Negative); Leukocyte Esterase Trace (Negative); Nitrite Negative (Negative); Specific Gravity >= 1.030 (1.005-1.025); Urobilinogen 0.2 EU/dL (Up TO 0.2); pH 5.5 (5-8)
[2022-11-16 12:07] LABS: Bacteria Negative HPF (Negative); C & S Indicated? Yes; Casts Negative LPF (Negative); Crystals Negative HPF (Negative); Epithelial Cells Rare HPF (Negative); Mucus Negative (Negative); RBC 0-2 HPF (0-2); WBC 0-2 HPF (0-5)
--- NOTE | 2022-11-16 12:19 | DI.CT_ITS ---
Exam(s) CT ABDOMEN PELVIS W EXAM: CT ABDOMEN PELVIS W CLINICAL HISTORY: abd pain, multiple previous surgeries. TECHNIQUE: Imaging Protocol: Axial computed tomography images with coronal and sagittal reformatted images were created and reviewed CONTRAST MATERIAL: Intravenous: Omnipaque 350 Contrast volume:100 ml Oral: no COMPARISON: CT CT ABDOMEN PELVIS W from 10/03/2021 FINDINGS: ABDOMEN: Lung Bases: Clear. Heart mildly enlarged. Coronary artery calcifications and pacemaker. Liver: Normal density. No measurable mass. Gallbladder and biliary tract: Status post cholecystectomy. No radiodense calculus or dilation. Pancreas: Normal density, no abnormal calcifications or inflammatory process. Spleen: Normal. Kidneys: Normal size, contour and axis. No radiodense stones or obstructive uropathy. No masses seen. Parapelvic cysts bilaterally. Adrenal glands: No masses seen. Abdominal Aorta: Abdominal portion non-dilated. Stomach and small bowel: Suture material and surgical clips near the fundus of the stomach. Mildly d ilated fluid-filled loops of small bowel in the upper and mid abdomen. No transition point identifie d. Soft tissues:: Stable appearance of dehiscence of the anterior abdominal wall. Prior calcifications again noted the inferior abdominal wall. PELVIS: Bladder: Nearly empty and not well evaluated. No gross wall thickening. No calculi.No focal mass. Bowel: No colonic wall thickening. Appendix not visualized. Redundant sigmoid. Some fluid is seen i n right side of colon. Peritoneal cavity: No ascites, collection or mesenteric inflammatory response. Bones: Degenerative changes. Reproductive organs: Within normal limits. Lymph nodes: Unremarkable. Impression: Mildly dilated fluid-filled small bowel indicate early a partial small bowel obstruction. No wall th ickening or mesenteric stranding. Findings called to Harsha Mendoza of the emergency department. RADIATION DOSE DELIVERED: 1,360.26mGy.cm Total DLP DATA REPOSITORY: All CT scans at this facility are submitted to the National Radiology Data Registry (NRDR) Dose Index Registry (DIR) with the [employer] ([employer]). RADIATION OPTIMIZATION: All CT scans at this facility use at least one of these dose optimization te chniques: automated exposure control; mA and/or kV adjustment per patient size (includes targeted exa ms where dose is matched to clinical indication); or iterative reconstruction.
[2022-11-16] MEDS: Normal Saline - Diluent 50 ML VIAL IV (12:28)
[2022-11-16] MEDS: Omnipaque 350 MG/ML 100 ML BTL IJ (12:29)
[2022-11-16 13:52] LABS: Source Nasal/Nares
[2022-11-16 14:24] LABS: COVID-19 PCR Negative (Negative)
--- NOTE | 2022-11-16 17:26 | W.PM.HP.N ---
Date of service: 11/16/22 Time of Service: 17:26 Assessment and Plan Assessment and plan (1) Partial small bowel obstruction: Status: Acute Assessment and plan: Certainly she has some risk factors for partial small bowel obstruction, and there are some features of the CAT scan that are consistent with that. Her exam is reassuring. We will plan for Gastrografin challenge tonight. I did explain that if she experiences any nausea or vomiting, then she will need insertion of a nasogastric tube. Furthermore, if she develops concerning abdominal signs and symptoms, then it may even be worth considering transfer down to [facility]. At this point, however, I think the most reasonable course of action is to see if Gastrografin passes, and how she feels over the next few hours. History of Present Illness History of Present Illness Chief Complaint: Abdominal pain Narrative: Lulu is a 72-year-old woman who comes to the hospital with approximately 12 to 24 hours of increasing colicky abdominal pain. She says it starts around her umbilicus, and radiates down through the lower pelvis. On occasion, it comes up into the upper abdomen.. Several episodes of nausea and vomiting yesterday, but they have resolved today. She describes them as bilious in nature. She has not had a bowel movement in the past few days. However, she tells me that her baseline is approximately 1 bowel movement per week. On occasion when she has diarrhea, she says she may experience 2 bowel movements per week. She says the pain is a little worse with movement. She has some loss of appetite, but she is asking for crackers at this point. She has an extensive abdominal surgical history. She tells me she has had upwards of 16 operations, mostly surrounding abdominal wall hernia complications of mesh infections. The majority of those operations have been performed at [facility] Is a Orthodox, and declines the transfusion of any blood product if it were to be recommended by healthcare providers. Review of Systems Constitutional Constitutional: Denies difficulty sleeping, Reports fatigue, Denies fever(s), Reports lethargy and Reports poor appetite Eyes Eyes: Reports system reviewed and no additional complaints, except as documented ENT Ears, Nose, Mouth, and Throat: Reports system reviewed and no additional complaints, except as documented, Denies abnormal hearing and Denies dizziness Cardiovascular Cardiovascular: Denies chest pain and Denies dyspnea Respiratory Respiratory: Denies chest congestion, Denies cough and Denies dyspnea Gastrointestinal Gastrointestinal: Reports abdominal pain, Denies belching, Denies bloating, Reports cramping, Reports nausea and Reports vomiting Musculoskeletal Musculoskeletal: Denies myalgias and Denies muscle cramps Neurologic Neurologic: Denies abnormal hearing, Denies confusion and Denies dizziness Psychiatric Psychiatric: Denies confusion Endocrine Endocrine: Reports fatigue Hematologic/Lymphatic Hematologic/Lymphatic: Denies easy bleeding PFSH All Active Problems Partial small bowel obstruction (Acute) Shortness of breath (Acute) Conductive hearing loss, external ear (Acute) Impacted cerumen, bilateral (Acute) Diarrhea (Acute) Edema, lower extremity (Acute) Pruritic condition (Acute) Palpitation (Acute) Encounter for postoperative wound check (Acute) Preoperative cardiovascular examination (Acute) Interstitial lung disease (Acute) Chronic abdominal pain (Acute) Tinnitus, bilateral (Acute) Sensorineural hearing loss of both ears (Acute) Elevated hemoglobin A1c (Acute) Family history of colon cancer (Chronic) Syncope (Chronic 10/10/07) Abnormal chest CT (Chronic) Sick sinus syndrome (Chronic) Vitamin D deficiency (Chronic 10/29/14) Ventral hernia without obstruction or gangrene (Chronic) recurrent; Repair; infected mesh 2001 and 2002 chronic abdominal pain Restless legs (Chronic) Pancreatic cyst (Chronic 08/19/15) [facility] [place] 08/25 EUS ?IPMN, FNA non diagnostic Obstructive sleep apnea syndrome (Chronic) SLEEP STUDY [facility] 03/20 2013 trying oral apparatus Nausea and vomiting (Chronic) Delayed gastric emptying; 07/13-NL Ba swallow; 01/12-EGD=+HH; 01/14-UGI + GERD; 07/1744-ECF-avablpd gastropathy 08/16 [facility] delayed gastric emptying due to vertical banded gastroplasty (stomach stapling for obesity) 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) repeat CT at [facility] due Jul 2016 Morbid obesity (Chronic) S/P stomach stapling Malignant neoplasm of female breast (Chronic 03/13/13) Right breast bx at [facility]-+infiltration ductal Ca; + Lymph node; bilateral mastectomy + axillary node dissection Lymphedema of right arm (Chronic 07/11/17) Low back pain (Chronic) Knee pain (Chronic) 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) Impaired fasting glucose (Chronic 10/08/08) Hypothyroidism (Chronic) Hyperlipidemia (Chronic) Hydronephrosis, left (Chronic 08/19/15) incidental finding on abd CT [facility] (f/u [facility] urology) Gastroesophageal reflux disease with esophagitis (Chronic) gastric emptying delay; erosive gastropathy hiatal hernia 08/23/15 [facility] [place]; UPPER EUS Essential hypertension (Chronic 10/22/13) Disorder of vitamin B12 (Chronic) Depressive disorder (Chronic) Dental caries (Chronic 03/09/16) Conductive hearing loss, external ear (Chronic 07/12/16) Cardiac pacemaker in situ (Chronic) Medtronic dual lead pacemaker Original implant 03/15/2008 @ [facility] for syncope/SND Adapta L [id number] RA Medtronic [id number] 03/15/2008 RV Medtronic [id number] 03/15/200808/2020 - Battery depleted. Above generator/pacer replaced - see [facility] for details of pacer. Medical History Hyperpigmentation of oral cavity (09/08/13) Impacted cerumen, bilateral (07/12/16) Lipoma of buttock (03/03/15) Oral mucositis (07/12/16) Pacemaker battery depletion Postmenopausal bleeding (02/08/09) Swelling of surgical site Surgical History Breast, Mastectomy Bilateral w/axillary node dissection-right section X 3 Cholecystectomy Dilation and curettage Endometrial Biopsy NEG Excision, Lipoma RIGHT HIP HERNIA REPAIR X 6 History of section Open Carpal Tunnel release 1982 LEFT 1977 RIGHT Pacemaker (~2007) Replacement of total knee joint 2007 RIGHT 2011 LEFT Status post carpal tunnel release Status post cholecystectomy Status post hernia repair Status post total knee replacement Stomach Stapled 1989 Family History Mother Essential hypertension Diabetes Personal history of malignant neoplasm colon Hyperlipidemia Father Diabetes Personal history of malignant neoplasm colon, skin Sister Hyperlipidemia Sister Myalgia and myositis Sister Personal history of malignant neoplasm ovarian Celiac disease Hyperlipidemia Depression Sister Polycythemia vera Hyperlipidemia Celiac disease Paternal Grandfather Personal history of malignant neoplasm Liver Alcohol abuse Maternal Grandmother Essential hypertension Personal history of malignant neoplasm pancreatic Paternal Grandmother Personal history of malignant neoplasm Leukemia Maternal Grandfather Heart disease Son Depression Son Depression Substance abuse Other Family history of colon cancer Social History Smoking/Tobacco Use Status: Never Smoking risk assessment performed?: Yes Alcohol Intake: never Drug use: Never Substance use type: does not use What type of physical activity do you participate in: walking Duration: 15-30 minutes/day Frequency: 3-4 times per week Marie/Zoroastrian: Orthodox Agree to transfusion: No Do you feel safe at home: Yes Do you feel safe in your relationship?: Yes Meds Allergies and Home Medications Allergies Allergy/AdvReac Type Severity Reaction Status Date / Time Penicillins Allergy Severe Skin Rash Verified 11/16/22 09:40 nickel Allergy Intermediate SWELLING Verified 11/16/22 09:40 furosemide Allergy Unknown Verified 11/16/22 09:40 diphenhydramine AdvReac Severe RESTLESSNES Verified 11/16/22 09:40 S ropinirole HCl [From Requip] AdvReac Severe Visual Verified 11/16/22 09:40 Disturbances ciprofloxacin [From Cipro] AdvReac Intermediate Skin Rash Verified 11/16/22 09:40 duloxetine AdvReac Intermediate DIARRHEA Verified 11/16/22 09:40 lamotrigine AdvReac Intermediate NAUSEA/VOMI Verified 11/16/22 09:40 TING Latex, Natural Rubber AdvReac Intermediate Skin Rash Verified 11/16/22 09:40 lisinopril AdvReac Intermediate COUGH Verified 11/16/22 09:40 codeine AdvReac Unknown WIRED Verified 11/16/22 09:40 metoclopramide AdvReac Unknown hullucinati Verified 11/16/22 09:40 ons aspertame AdvReac Mild Skin Rash Uncoded 11/16/22 09:40 Home Medications Medication Instructions Recorded Confirmed Type cholecalciferol (vitamin D3) 25 2,000 unit PO DAILY #90 tab-caps 09/29/18 11/16/22 Rx mcg (1,000 unit) capsule levothyroxine 125 mcg tablet 125 mcg PO DAILY #90 tab-caps 02/03/21 11/16/22 Rx spironolactone 50 mg tablet 50 mg PO DAILY #90 tabs 02/05/22 11/16/22 Rx trazodone 50 mg tablet 50 mg PO PRN #90 tabs 04/12/22 11/16/22 Rx rosuvastatin 5 mg tablet 5 mg PO DAILY 08/01/22 11/16/22 History Exam Const General: cooperative and comfortable Nutritional Appearance: obese Orientation: alert, awake and oriented x3 Eyes General: appearance normal, both eyes and all related structures Neck Neck: normal visual inspection, full ROM and no lymphadenopathy Resp Effort & Inspection: able to speak in complete sentences and respiratory effort not decreased Auscultation: clear to auscultation bilaterally Cardio Jugular venous pressure: no JVD Rate: regular rate Rhythm: regular rhythm Heart Sounds: S1 normal and S2 normal GI Inspection: non-distended, obesity and scar Palpation: soft and nontender Skin General skin exam: no rashes or lesions noted Neuro General: patient alert, patient awake and patient oriented x3 Extrem General: full ROM Right lower extremity: edema Left lower extremity: edema Results Imaging Abdomen CT scan report/results: report reviewed and image reviewed CT scan - pelvis: report reviewed and image reviewed Labs Result diagrams: 11/16/22 10:18 11/16/22 10:18 Labs: Laboratory Results - last 24 hr 11/16/22 11/16/22 11/16/22 10:18 10:18 10:18 WBC RBC Hgb Hct MCV MCH MCHC RDW Plt Count MPV Immature Gran % Neutrophils % Lymphocytes % Monocytes % Eosinophils % Basophils % Nucleated RBC % Absolute Neutrophils Absolute Lymphocytes Absolute Monocytes Absolute Eosinophils Absolute Basophils PT 10.1 INR 1.0 VBG Lactate 1.5 H Sodium Potassium Chloride Carbon Dioxide Anion Gap BUN Creatinine Est GFR (CKD-EPI 2020) Glucose Calcium Total Bilirubin AST ALT Alkaline Phosphatase Total Protein Albumin Lipase 85 Urine Color Urine Clarity Urine pH Ur Specific [place] Urine Protein Urine Ketones Urine Blood Urine Nitrite Urine Bilirubin Urine Urobilinogen Ur Leukocyte Esterase Urine RBC Urine WBC Ur Epithelial Cells Urine Crystals Urine Bacteria Urine Casts Urine Mucus Ur Culture Indicated? Urine Glucose COVID-19 Source SARS-CoV-2 (PCR) 11/16/22 11/16/22 11/16/22 10:18 10:18 11:49 WBC 12.03 H RBC 5.20 Hgb 16.0 H Hct 45.9 MCV 88 MCH 30.8 MCHC 34.9 RDW 12.7 Plt Count 172 MPV 10.1 Immature Gran % 0.3 Neutrophils % 84.4 Lymphocytes % 8.5 Monocytes % 6.1 Eosinophils % 0.4 Basophils % 0.3 Nucleated RBC % 0.0 Absolute Neutrophils 10.15 H Absolute Lymphocytes 1.02 L Absolute Monocytes 0.73 Absolute Eosinophils 0.05 Absolute Basophils 0.04 PT INR VBG Lactate Sodium 135 L Potassium 4.1 Chloride 101 Carbon Dioxide 23.9 Anion Gap 10.1 BUN 17 Creatinine 0.8 Est GFR (CKD-EPI 2020) 78.24 Glucose 144 H Calcium 9.9 Total Bilirubin 1.0 AST 29 ALT 31 Alkaline Phosphatase 115 Total Protein 8.7 H Albumin 4.3 Lipase Urine Color Yellow Urine Clarity Clear Urine pH 5.5 Ur Specific [place] >= 1.030 H Urine Protein Negative Urine Ketones Negative Urine Blood Trace-intact H Urine Nitrite Negative Urine Bilirubin Small H Urine Urobilinogen 0.2 Ur Leukocyte Esterase Trace H Urine RBC 0-2 Urine WBC 0-2 Ur Epithelial Cells Rare Urine Crystals Negative Urine Bacteria Negative Urine Casts Negative Urine Mucus Negative Ur Culture Indicated? Yes Urine Glucose Negative COVID-19 Source SARS-CoV-2 (PCR) 11/16/22 13:46 WBC RBC Hgb Hct MCV MCH MCHC RDW Plt Count MPV Immature Gran % Neutrophils % Lymphocytes % Monocytes % Eosinophils % Basophils % Nucleated RBC % Absolute Neutrophils Absolute Lymphocytes Absolute Monocytes Absolute Eosinophils Absolute Basophils PT INR VBG Lactate Sodium Potassium Chloride Carbon Dioxide Anion Gap BUN Creatinine Est GFR (CKD-EPI 2020) Glucose Calcium Total Bilirubin AST ALT Alkaline Phosphatase Total Protein Albumin Lipase Urine Color Urine Clarity Urine pH Ur Specific [place] Urine Protein Urine Ketones Urine Blood Urine Nitrite Urine Bilirubin Urine Urobilinogen Ur Leukocyte Esterase Urine RBC Urine WBC Ur Epithelial Cells Urine Crystals Urine Bacteria Urine Casts Urine Mucus Ur Culture Indicated? Urine Glucose COVID-19 Source Nasal/Nares SARS-CoV-2 (PCR) Negative Last Vital Signs Temp 97.7 F 11/16/22 16:27 Pulse 77 11/16/22 16:27 Resp 16 11/16/22 16:27 BP 117/77 11/16/22 16:27 Pulse Ox 96 11/16/22 16:27 Time Spent Time spent with Patient: 40-54 minutes Time was spent: preparing to see the patient(eg.review tests), obtaining and/or reviewing separately otained hiistory, indepentently interpreting results and counseling the patient
[2022-11-16] MEDS: Lactated Ringers 1,000 ML 75 ML IV (17:27)
[2022-11-16] MEDS: Simethicone 80 MG CHEW PO (17:27)
[2022-11-16] MEDS: Normal Saline Flush 10 ML SYR IVP (17:28)
[2022-11-16] MEDS: Enoxaparin 40 MG/0.4 ML SYR SC (17:28)
--- NOTE | 2022-11-16 18:28 | RESPIRATORY ---
RT spoke with patient concerning history of LAURIE in chart, patient does not use a device for LAURIE. Patient stated that her sleep study suggested she use one but instead decided to try an oral appliance. She was unable to continue to use oral appliance dues to having to have teeth extracted. Since tooth extraction, patient has not had a follow up to continue with oral appliance.
[2022-11-16] MEDS: MORPHine 2 MG/ML SYR IVP (18:37)
[2022-11-16] MEDS: Gastrografin 120 ML BTL PO (18:50)
--- NOTE | 2022-11-17 | DI.RAD_ITS ---
Exam(s) XR ABDOMEN FLAT PLATE EXAM: 2D digital imaging was performed. CLINICAL HISTORY: gastrografin challenge. COMPARISON: CT CT ABDOMEN PELVIS W from 11/16/2022 TECHNIQUE: Supine views of the abdomen performed. FINDINGS: No time of administration of Gastrografin is noted. Gastrografin is present in the colon. Some dila lashon loops of distal small bowel are present which contain contrast.. The colon is nondilated. The s tomach is not abnormally distended. There are multiple surgical clips at the gastric fundus. IMPRESSION: Gastrografin noted in dilated distal small bowel and nondilated colon. DATA REPOSITORY: RADIATION DOSE DELIVERED:
[2022-11-17 06:37] VITALS: BP 114/75; PULSE 74; RESP 16; TEMP 36.8; O2SAT 93
--- NOTE | 2022-11-17 06:37 | DI.VRAD_ITS ---
PROCEDURE INFORMATION: Exam: XR Abdomen Exam date and time: 11/17/2022 4:25 AM Age: 72 years old Clinical indication: Screening exam; Other: Gastrographin challenge TECHNIQUE: Imaging protocol: Radiologic exam of the abdomen. Views: Frontal supine view of the abdomen. 1 View. COMPARISON: CT ABDOMEN PELVIS W 11/16/2022 12:15 PM FINDINGS: Soft tissues: Injection granulomata. Gastrointestinal tract: Enteric contrast throughout the length of the colon and rectum with mild small bowel dilatation. Intraperitoneal space: Postoperative change in the left upper quadrant. Bones/joints: Degenerative change. IMPRESSION: Enteric contrast throughout the length of the colon and rectum with mild small bowel dilatation. Dictated and Authenticated by: Ru Catalan MD. Ordering:GEOVANNA Keating MD
[2022-11-17 06:42] LABS: Abs Immature Grans 0.02 10^3/uL (0.0-0.06); Absolute Basophil Count 0.01 10^3/uL (0.0-0.2); Absolute Eosinophil Count 0.08 10^3/uL (0.0-0.7); Absolute Lymphocyte Count 1.04 10^3/uL (1.2-3.4); Absolute Monocyte Count 0.74 10^3/uL (0.1-0.8); Absolute Neutrophil Count 4.51 10^3/uL (1.2-6.7); Basophils % 0.2; Eosinophils % 1.3; HCT 41.4 % (36.0-46.0); HGB 14.3 g/dL (11.2-15.7); Immature Grans % 0.3; Lymphocytes % 16.3; MCH 30.7 pg (27.0-33.0); MCHC 34.5 % (32.0-36.0); MCV 89 fL (80-95); MPV 10.2 fL (8.0-11.0); Monocytes % 11.6; Neutrophils % 70.3; Platelet Count 157 10^3/uL (130-400); RBC 4.66 10^6/uL (3.93-5.22); RDW-SD 42.1 fL
[2022-11-17 06:58] LABS: Anion Gap 8.4 mmol/L (3-11); BUN 12 mg/dL (7-18); CO2 26.6 mmol/L (21.0-32.0); CREATININE 0.8 mg/dL (0.55-1.02); Calcium 8.8 mg/dL (8.5-10.1); Chloride 106 mmol/L (98-107); Estimated GFR 78.24 (mL/min/1.73m2); Glucose 113 mg/dL (74-106); Potassium 3.8 mmol/L (3.5-5.1); Sodium 141 mmol/L (136-145)
[2022-11-17] MEDS: Lactated Ringers 1,000 ML 75 ML IV (08:16)
[2022-11-17] MEDS: Spironolactone 50 MG TAB PO (08:16)
--- NOTE | 2022-11-17 09:06 | PDOC.CMIN ---
- If Service Date Differs Date of service: 11/17/22 Time of Service: 09:06 Care Management Initial Assess REASON FOR HOSPITALIZATION:: Partial SBO PAST MEDICAL HISTORY/PAST SURGICAL HISTORY:: All Active Problems . Partial small bowel obstruction (Acute). Shortness of breath (Acute). Conductive hearing loss, external ear (Acute). Impacted cerumen, bilateral (Acute). Diarrhea (Acute). Edema, lower extremity (Acute). Pruritic condition (Acute). Palpitation (Acute). Encounter for postoperative wound check (Acute). Preoperative cardiovascular examination (Acute). Interstitial lung disease (Acute). Chronic abdominal pain (Acute). Tinnitus, bilateral (Acute). Sensorineural hearing loss of both ears (Acute). Elevated hemoglobin A1c (Acute). Family history of colon cancer (Chronic). Syncope (Chronic 10/10/07). Abnormal chest CT (Chronic). Sick sinus syndrome (Chronic). Vitamin D deficiency (Chronic 10/29/14). Ventral hernia without obstruction or gangrene (Chronic). recurrent; Repair; infected mesh 2001 and 2002. chronic abdominal pain. Restless legs (Chronic). Pancreatic cyst (Chronic 08/19/15). [facility] [place] GI eval. 08/25 EUS ?IPMN, FNA non diagnostic. Obstructive sleep apnea syndrome (Chronic). SLEEP STUDY [facility] [place] 03/20. 2012 trying oral apparatus. Nausea and vomiting (Chronic). Delayed gastric emptying; 07/13-NL Ba swallow; 01/12-EGD=+HH; 01/14-UGI + GERD; 07/1720-TKJ-tgzzqun gastropathy. 08/16 [facility] [place] [place] delayed gastric emptying due to vertical banded gastroplasty (stomach stapling for obesity). 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 repeat CT at [facility] [place] due Jul 2016. Morbid obesity (Chronic). S/P stomach stapling. Malignant neoplasm of female breast (Chronic 03/13/13). Right breast bx at [facility] [place]-+infiltration ductal Ca; + Lymph node; bilateral mastectomy + axillary node dissection. Lymphedema of right arm (Chronic 07/11/17). Low back pain (Chronic). Knee pain (Chronic). 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 Impaired fasting glucose (Chronic 10/08/08). Hypothyroidism (Chronic). Hyperlipidemia (Chronic). Hydronephrosis, left (Chronic 08/19/15). incidental finding on abd CT [facility] [place] [facility] (f/u [facility] urology). Gastroesophageal reflux disease with esophagitis (Chronic). gastric emptying delay; erosive gastropathy. hiatal hernia. 08/23/15 [facility] [place]; UPPER EUS. Essential hypertension (Chronic 10/22/13). Disorder of vitamin B12 (Chronic). Depressive disorder (Chronic). Dental caries (Chronic 03/09/16). Conductive hearing loss, external ear (Chronic 07/12/16). Cardiac pacemaker in situ (Chronic). Medtronic dual lead pacemaker. Original implant 03/15/2008 @ [facility] [place] for syncope/SND. Bridger Shankar [id number]. RA Medtronic [id number] 03/15/2008. RV Medtronic [id number] 03/15/2008. 08/2020 - Battery depleted. Above generator/pacer replaced - see [facility] [place] [place] for details of pacer. Medical History . Hyperpigmentation of oral cavity (09/08/13). Impacted cerumen, bilateral (07/12/16). Lipoma of buttock (03/03/15). Oral mucositis (07/12/16). Pacemaker battery depletion. Postmenopausal bleeding (02/08/09). Swelling of surgical site. Surgical History . Breast, Mastectomy Bilateral. w/axillary node dissection-right. section. X 3. Cholecystectomy. Dilation and curettage. Endometrial Biopsy. NEG. Excision, Lipoma. RIGHT HIP. HERNIA REPAIR. X 6. History of section. Open Carpal Tunnel release. 1982 LEFT. 1977 RIGHT. Pacemaker (~2007). Replacement of total knee joint. 2007 RIGHT. 2010 LEFT. Status post carpal tunnel release. Status post cholecystectomy. Status post hernia repair. Status post total knee replacement. Stomach Stapled. 1989 PREVIOUS FUNCTIONAL STATUS/SOCIAL/FAMILY SUPPORTS:: Lulu lives in a senior housing apartment in [facility]. Her son and grandson are staying with her temporarily as they are homeless. She had 2 sons but one about 3 years ago. Lulu is disabled and has not worked in many years. She is independent at baseline and cares for her elderly parents who live in [place] a few days a week. CURRENT FUNCTIONAL STATUS:: Lulu was sitting up in bed visiting with her friend Na when CM met with her. One of the [employer] volunteers stopped by to visit and it turned out that he and Lulu went to school together. They chatted for quite a while about friends, acquaintances and teachers that they both remembered. Lulu's sense of humor became evident during that conversation. Lulu informed CM that she has meals and housekeeping available to her but she declines to accept either service. She explained that she has to rely on public transportation and cannot always be at home when housekeepers would be able to come. ADVANCE DIRECTIVES:: none on file Has patient been provided with info about the portal/API?: Yes Did the patient sign up for the portal?: Yes (previously) CODE STATUS:: Full Code INSURANCE COVERAGE / FINANCIAL ISSUES:: [facility] Medicare Replacement Plan CURRENT HOME/COMMUNITY SERVICES/EQUIPMENT:: none PRIMARY CARE PHYSICIAN:: Silvio Verdugo POTENTIAL DISCHARGE NEEDS:: Follow up with PCP and plan of care PATIENT/FAMILY EDUCATION NEEDS:: Review of discharge instructions, activity, limitations, diet, follow up plan, discuss Ask Me Three TRANSPORTATION:: via private vehicle with family PLAN:: Anticipate Lulu will be discharged home with no new services. She will follow up with her community providers and plan of care and transport with family. CM will follow and assess for discharge planning concerns.
--- NOTE | 2022-11-17 13:18 | W.PM.PROGNOT ---
Date of Service Date of service: 11/17/22 Time of Service: 22:25 Assessment and Plan Assessment and plan (1) Partial small bowel obstruction: Status: Acute Assessment and plan: 72 yo woman with pSBO that seems to be resolving in that she is having good bowel function. She continues to have abdominal pain though it is dissipating. She is HD stable. Labwork unremarkable. Because of the persistent, albeit lessening and overall mild, abdominal pain . . . I'm going to allow her sips of clear liquids and ice chips only for now and see how it is tolerated. Overall plan: Sips Maintain IVF for now labwork in AM DVT prophylaxis analgesia prn Subjective Subjective Interval history since last seen: Patient has been having liquid bowel movements. PAssing gas. Still has some abdominal pain down low, but improved and minimal. Mostly complaining of new-onset foot pain that she has never had before. Her persistent abdominal pain she thinks is getting close to what she is used to at baseline from an extensive history of multiple procedures. Exam Narrative Exam Narrative: Gen: Nontoxic, comfortable, alert and interactive Neuro: AxOx3 Psych: Upbeat mood and affect, good insight and understanding Abdomen: Soft, nondistended, mild tenderness B/L lower quadrants is without peritoneal signs and diffuse rather than focal. Objective Last Vital Signs Temp 98.2 F 11/17/22 06:37 Pulse 74 11/17/22 06:37 Resp 16 11/17/22 06:37 BP 114/75 11/17/22 06:37 Pulse Ox 93 11/17/22 06:37 Laboratory Results - last 24 hr 11/16/22 11/17/22 11/17/22 13:46 06:20 06:20 WBC 6.40 RBC 4.66 Hgb 14.3 Hct 41.4 MCV 89 MCH 30.7 MCHC 34.5 RDW 13.0 Plt Count 157 MPV 10.2 Immature Gran % 0.3 Neutrophils % 70.3 Lymphocytes % 16.3 Monocytes % 11.6 Eosinophils % 1.3 Basophils % 0.2 Nucleated RBC % 0.0 Absolute Neutrophils 4.51 Absolute Lymphocytes 1.04 L Absolute Monocytes 0.74 Absolute Eosinophils 0.08 Absolute Basophils 0.01 Sodium 141 Potassium 3.8 Chloride 106 Carbon Dioxide 26.6 Anion Gap 8.4 BUN 12 Creatinine 0.8 Est GFR (CKD-EPI 2020) 78.24 Glucose 113 H Calcium 8.8 COVID-19 Source Nasal/Nares SARS-CoV-2 (PCR) Negative Time Spent with Patient Time Spent with Patient: <25 minutes Time was spent: preparing to see the patient(eg.review tests) and counseling the patient
[2022-11-17 15:07] VITALS: BP 117/75; PULSE 73; RESP 16; TEMP 36.9; O2SAT 94
[2022-11-17] MEDS: ACETAMINOPHEN 1,000 MG/100 ML BTL 400 MG IVPB ×2 (15:18→19:19)
[2022-11-17] MEDS: Enoxaparin 40 MG/0.4 ML SYR SC (17:49)
--- NOTE | 2022-11-17 19:02 | NUR.NOTE ---
Nursing Note: Dr Moreno was present this afternoon, discussed update and radiology with him. He told me to allow her to have ice chips to help the dry mouth, He told me to give Offimerv every 6 hours for pain, and he told me to hold the gastrograffin tonight
[2022-11-17] MEDS: Normal Saline 500 ML 35 ML IV (19:20)
[2022-11-17 23:36] VITALS: BP 117/73; PULSE 69; RESP 18; TEMP 36.6; O2SAT 95
[2022-11-18] MEDS: ACETAMINOPHEN 1,000 MG/100 ML BTL 400 MG IVPB (03:13)
[2022-11-18] MEDS: Lactated Ringers 1,000 ML 75 ML IV (03:13)
[2022-11-18 06:21] VITALS: BP 95/62; PULSE 71; RESP 16; TEMP 36.3; O2SAT 96
[2022-11-18 06:40] LABS: HCT 39.9 % (36.0-46.0); HGB 13.7 g/dL (11.2-15.7); MCH 30.7 pg (27.0-33.0); MCHC 34.3 % (32.0-36.0); MCV 90 fL (80-95); MPV 10.1 fL (8.0-11.0); Platelet Count 148 10^3/uL (130-400); RBC 4.46 10^6/uL (3.93-5.22); RDW 12.4 % (11.7-14.6); RDW-SD 40.9 fL
--- NOTE | 2022-11-18 08:00 | W.PM.PROGNOT ---
Date of Service Date of service: 11/18/22 Time of Service: 08:00 Assessment and Plan Assessment and plan (1) Partial small bowel obstruction: Status: Acute Assessment and plan: 72-year-old woman with a complex surgical abdominal history who presented with partial obstruction symptoms but now has had almost complete resolution of her symptoms and is having good bowel function. Her abdominal exam is quite benign although the one area remains slightly tender and this is something she insists is new for her. The trend of this tenderness is 1 of slow improvement so I think what ever were doing is the right management strategy. Plan: Hep-Lock IV fluids and give her clear liquid diet and continue to monitor. She is very happy with the plan of going very slowly since she is worried about the possibility of needing emergency surgery and has been told that she probably would not survive such surgery. Indeed, she would be an extremely high risk surgical candidate considering the history. Liquid diet as tolerated today and if she does well, and her abdominal pain does not worsen, we can start her on a regular diet tomorrow and discharge her home. She is anticipating a discharge home tomorrow as long as this plan is effective and nothing worsens. She otherwise needs to be out of bed, ambulating, DVT prophylaxis and incentive spirometry. No narcotics analgesia. Subjective Subjective Interval history since last seen: No events overnight. The patient has no complaints. She says she still has some mild residual pain but it continues to be drastically improved. The tenderness now is really focused on just the right lower abdomen and it is only tender to deep palpation in that location. Diarrhea has stopped but she continues to have flatus and denies any nausea and no subjective abdominal pain if her abdomen is not being palpated. Exam Narrative Exam Narrative: General: Nontoxic, comfortable and interactive Neuro: Alert and orient x3 Psych: Appropriate mood and affect, good insight and understanding Abdomen: Soft, obese, nondistended, mild tenderness just in the right lower quadrant only that is nonspecific. There is no peritoneal signs in the tenderness is not there on mild/gentle palpation. Objective Last Vital Signs Temp 97.3 F L 11/18/22 06:21 Pulse 71 11/18/22 06:21 Resp 16 11/18/22 06:21 BP 95/62 L 11/18/22 06:21 Pulse Ox 96 11/18/22 06:21 Laboratory Results - last 24 hr 11/18/22 06:20 WBC 5.70 RBC 4.46 Hgb 13.7 Hct 39.9 MCV 90 MCH 30.7 MCHC 34.3 RDW 12.4 Plt Count 148 MPV 10.1 Time Spent with Patient Time Spent with Patient: <25 minutes Time was spent: preparing to see the patient(eg.review tests) and indepentently interpreting results
[2022-11-18] MEDS: Spironolactone 50 MG TAB PO (09:24)
[2022-11-18 15:08] VITALS: BP 127/90; PULSE 69; RESP 16; TEMP 36.8; O2SAT 96
[2022-11-18] MEDS: Enoxaparin 40 MG/0.4 ML SYR SC (17:30)
[2022-11-18 20:26] VITALS: BP 130/83; PULSE 64; RESP 18; TEMP 36.9; O2SAT 96
[2022-11-18] MEDS: Acetaminophen 500 MG TAB 1000 MG PO (23:41)
[2022-11-18 23:44] VITALS: BP 126/84; PULSE 71; RESP 19; TEMP 36.4; O2SAT 96
--- NOTE | 2022-11-19 07:23 | DSE_ITS ---
Date of service: 11/19/22 Time of Service: 13:00 DS: Diagnosis Discharge Diagnosis (1) Partial small bowel obstruction: Status: Acute Asessment and Plan: He seems to have had an early partial small bowel obstruction. He had a favorable response to a Gastrografin contrast challenge, and that showed that all of the contrast that he drank made its way to your large intestine and rectum. As we talked about in the hospital, it is possible to experience another partial small bowel obstruction. If you experience similar symptoms, then you should contact your primary care physician, or be seen in the local emergency department for evaluation. Discharge Plan Disposition Patient Disposition: Home Condition: Good Discharge Details Reason For Visit: Partial Small Bowel Obstruction Admit Date/Time: 11/16/22 13:01 Admit Provider: Rishabh Charles Attending Provider: Rishabh Charles Primary Care Provider: Silvio Verdugo Hospital Course Hospital Course: Lulu is a 72-year-old woman who came to the emergency department on November 16 with chief complaint of crampy abdominal pain. She also had nausea and vomiting. She underwent a CAT scan of abdomen and pelvis that suggested early partial small bowel obstruction. At that time, her nausea had resolved. I admitted her to the hospital. We performed a Gastrografin challenge that night. X-rays the next morning demonstrated contrast throughout the length of the colon and rectum with only mild small bowel dilation. She remained free of nausea, and her diet was advanced to liquids. She tolerated without any difficulty. I advanced her diet again on November 19 to regular food. Home Meds and New Rx's Prescriptions: Continued rosuvastatin 5 mg tablet 5 mg PO DAILY levothyroxine 125 mcg tablet 125 mcg PO DAILY Qty: 90 4RF cholecalciferol (vitamin D3) 1,000 unit capsule 2,000 unit PO DAILY Qty: 90 4RF spironolactone 50 mg tablet 50 mg PO DAILY Qty: 90 3RF trazodone 50 mg tablet 50 mg PO PRN Qty: 90 4RF Discharge Instructions Instructions: Bowel Obstruction (GEN) Additional Instructions: Follow-up with your primary care doctor at your convenience. There is no emergency if you develop similar symptoms, contact my office, or present to the emergency department outside of usual business hours. Activity:: Activity as Tolerated Equipment/Supplies:: No Equipment Needed Diet:: As Tolerated DS: Summary Time Spent with Patient providing and/or coordinating discharge services: Less than 30 minutes Status at Discharge Functional status at discharge: independent ambulation Overall status at discharge: patient is back to baseline Mental Status: mental status grossly normal Speech and Movement: speech and movement normal Mood: congruent mood Affect: normal affect Exam Const General: cooperative, comfortable and no acute distress Nutritional Appearance: obese Orientation: alert, awake and oriented x3 HENMT Head: normal to inspection GI Inspection: incision, large pannus and scar Palpation: soft and nontender Percussion: normal to percussion Auscultation: normal bowel sounds Psych Mental Status: mental status grossly normal Speech and Movement: speech and movement normal Mood: congruent mood Affect: normal affect DS: Data Vitals/I&O Vitals and I&O: Vital Signs Temperature 97.5 F L 11/18/22 23:44 Temperature Source Tympanic 11/18/22 23:44 Pulse 71 11/18/22 23:44 Pulse Rhythm Irregular 11/19/22 02:15 Respiratory Rate 19 11/18/22 23:44 Respiratory Effort 11/19/22 02:15 Respiratory Depth Normal 11/19/22 02:15 Respiratory Pattern Normal 11/19/22 02:15 Blood Pressure 126/84 11/18/22 23:44 Blood Pressure Position Sitting 11/16/22 09:38 Pulse Oximetry 96 11/18/22 23:44 Oxygen Delivery Method Room Air 11/18/22 23:44 Oxygen Flow Rate 0 11/18/22 23:44 Pain Level 6 11/19/22 00:41 Comment 11/18/22 20:26 Intake & Output 11/18/22 11/18/22 11/19/22 11:59 23:59 11:59 Intake Total 488.75 / 488.75 Output Total 700 / 1550 850 / 1550 300 / 300 Balance -211.25 / -1061.25 -850 / -1061.25 -300 / -300 Intake: IV 488.75 / 488.75 Output: Urine 700 / 1550 850 / 1550 300 / 300 Other: Urine Color Yellow Yellow Yellow Urine Appearance Clear Clear Clear Urine Odor Normal None Normal Comment toilet insert Stool Size Moderate Moderate Stool Characteristics Liquid Voiding Methods Toilet Toilet Toilet PFSH All Active Problems Partial small bowel obstruction (Acute) Shortness of breath (Acute) Conductive hearing loss, external ear (Acute) Impacted cerumen, bilateral (Acute) Diarrhea (Acute) Edema, lower extremity (Acute) Pruritic condition (Acute) Palpitation (Acute) Encounter for postoperative wound check (Acute) Preoperative cardiovascular examination (Acute) Interstitial lung disease (Acute) Chronic abdominal pain (Acute) Tinnitus, bilateral (Acute) Sensorineural hearing loss of both ears (Acute) Elevated hemoglobin A1c (Acute) Family history of colon cancer (Chronic) Syncope (Chronic 10/10/07) Abnormal chest CT (Chronic) Sick sinus syndrome (Chronic) Vitamin D deficiency (Chronic 10/29/14) Ventral hernia without obstruction or gangrene (Chronic) recurrent; Repair; infected mesh 2001 and 2002 chronic abdominal pain Restless legs (Chronic) Pancreatic cyst (Chronic 08/19/15) [facility] [place] GI eval 08/25 EUS ?IPMN, FNA non diagnostic Obstructive sleep apnea syndrome (Chronic) SLEEP STUDY [facility] 03/20 2013 trying oral apparatus Nausea and vomiting (Chronic) Delayed gastric emptying; 07/13-NL Ba swallow; 01/12-EGD=+HH; 01/14-UGI + GERD; 07/1728-MHH-uqotrju gastropathy 08/16 [facility] delayed gastric emptying due to vertical banded gastroplasty (stomach stapling for obesity) 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) repeat CT at [facility] due Jul 2016 Morbid obesity (Chronic) S/P stomach stapling Malignant neoplasm of female breast (Chronic 03/13/13) Right breast bx at [facility]-+infiltration ductal Ca; + Lymph node; bilateral mastectomy + axillary node dissection Lymphedema of right arm (Chronic 07/11/17) Low back pain (Chronic) Knee pain (Chronic) 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) Impaired fasting glucose (Chronic 10/08/08) Hypothyroidism (Chronic) Hyperlipidemia (Chronic) Hydronephrosis, left (Chronic 08/19/15) incidental finding on abd CT [facility] (f/u [facility] urology) Gastroesophageal reflux disease with esophagitis (Chronic) gastric emptying delay; erosive gastropathy hiatal hernia 08/23/15 [facility] [place]; UPPER EUS Essential hypertension (Chronic 10/22/13) Disorder of vitamin B12 (Chronic) Depressive disorder (Chronic) Dental caries (Chronic 03/09/16) Conductive hearing loss, external ear (Chronic 07/12/16) Cardiac pacemaker in situ (Chronic) Medtronic dual lead pacemaker Original implant 03/15/2008 @ [facility] for syncope/SND Adapta Vonnie [id number] RA Medtronic [id number] 03/15/2008 RV Medtronic [id number] 03/15/200808/2020 - Battery depleted. Above generator/pacer replaced - see [facility] for det ails of pacer. Medical History Hyperpigmentation of oral cavity (09/08/13) Impacted cerumen, bilateral (07/12/16) Lipoma of buttock (03/03/15) Oral mucositis (07/12/16) Pacemaker battery depletion Postmenopausal bleeding (02/08/09) Swelling of surgical site Surgical History Breast, Mastectomy Bilateral w/axillary node dissection-right section X 3 Cholecystectomy Dilation and curettage Endometrial Biopsy NEG Excision, Lipoma RIGHT HIP HERNIA REPAIR X 6 History of section Open Carpal Tunnel release 1982 LEFT 1977 RIGHT Pacemaker (~2007) Replacement of total knee joint 2007 RIGHT 2011 LEFT Status post carpal tunnel release Status post cholecystectomy Status post hernia repair Status post total knee replacement Stomach Stapled 1989 Family History Mother Essential hypertension Diabetes Personal history of malignant neoplasm colon Hyperlipidemia Father Diabetes Personal history of malignant neoplasm colon, skin Sister Hyperlipidemia Sister Myalgia and myositis Sister Personal history of malignant neoplasm ovarian Celiac disease Hyperlipidemia Depression Sister Polycythemia vera Hyperlipidemia Celiac disease Paternal Grandfather Personal history of malignant neoplasm Liver Alcohol abuse Maternal Grandmother Essential hypertension Personal history of malignant neoplasm pancreatic Paternal Grandmother Personal history of malignant neoplasm Leukemia Maternal Grandfather Heart disease Son Depression Son Depression Substance abuse Other Family history of colon cancer Social History Smoking/Tobacco Use Status: Never Smoking risk assessment performed?: Yes Alcohol Intake: never Drug use: Never Substance use type: does not use What type of physical activity do you participate in: walking Duration: 15-30 minutes/day Frequency: 3-4 times per week Marie/Episcopalian: Denominational Agree to transfusion: No Do you feel safe at home: Yes Do you feel safe in your relationship?: Yes Time Spent with Patient Time Spent with Patient: <45 minutes Time was spent: preparing to see the patient(eg.review tests) and counseling the patient
[2022-11-19 07:48] VITALS: BP 125/82; PULSE 65; RESP 19; TEMP 36.2; O2SAT 96
[2022-11-19] MEDS: Spironolactone 50 MG TAB PO (07:49)
[2022-11-19 14:44] VITALS: BP 115/75; PULSE 74; RESP 18; TEMP 36.9; O2SAT 95
--- NOTE | 2022-11-19 15:13 | CMPROGNOTE_ITS ---
- If Service Date Differs Date of service: 11/19/22 Time of Service: 15:13 Care Management Progress Note S/O: Lulu remains inpatient at this time, CM continues to follow. A: 72 year old female admitted to [facility] 11/16/21 for P: No change to overall plan, CM continues to follow.
== END 2022-11-19 17:37 | disposition home or self-care (01) | DRG 389 ==
LOC: ER 13:38 → MS 16:21
PROVIDERS: Student in an Organized Health Care Education/Training Program; Admitting Provider Surgery; Emergency Provider Physician Assistant; PCP Physician Assistant; Visit Provider Surgery
DX: K56.600 Partial intestinal obstruction, unspecified as to cause (principal); J84.9 Interstitial pulmonary disease, unspecified; Z68.41 Body mass index [BMI] 40.0-44.9, adult; N13.39 Other hydronephrosis; I10 Essential (primary) hypertension; E78.5 Hyperlipidemia, unspecified; E66.01 Morbid (severe) obesity due to excess calories; R06.02 Shortness of breath; G89.29 Other chronic pain; Z80.0 Family history of malignant neoplasm of digestive organs; E55.9 Vitamin D deficiency, unspecified; I49.5 Sick sinus syndrome; G25.81 Restless legs syndrome; G47.33 Obstructive sleep apnea (adult) (pediatric); I89.0 Lymphedema, not elsewhere classified; R73.01 Impaired fasting glucose; E03.9 Hypothyroidism, unspecified; K21.00 Gastro-esophageal reflux disease with esophagitis, without bleeding; E53.8 Deficiency of other specified B group vitamins; Z95.0 Presence of cardiac pacemaker; Z90.13 Acquired absence of bilateral breasts and nipples
CPT/HCPCS: 36415; 80048; 80053; 83690; 85027; 87635; 96361; 96374; 96375; 96376; 99221; 99231; 99238; 99285; J1650; 74018; 74177; 81003; 81015; 83605; 85025; 85610; 87086; J0131; J2270; J2405; J3490

== ENCOUNTER 2022-11-22 11:17 | Emergency (ER) | payer MEDICARE, MEDICAID, SELFPAY ==
[2022-11-22 11:22] VITALS: BP 146/60; PULSE 83; RESP 20; TEMP 36.6; O2SAT 98
[2022-11-22 12:00] VITALS: BP 133/71; PULSE 72; RESP 18; O2SAT 97
[2022-11-22 12:21] LABS: Abs Immature Grans 0.02 10^3/uL (0.0-0.06); Absolute Basophil Count 0.03 10^3/uL (0.0-0.2); Absolute Eosinophil Count 0.07 10^3/uL (0.0-0.7); Absolute Lymphocyte Count 1.35 10^3/uL (1.2-3.4); Absolute Monocyte Count 0.54 10^3/uL (0.1-0.8); Absolute Neutrophil Count 5.26 10^3/uL (1.2-6.7); Basophils % 0.4; HCT 41.9 % (36.0-46.0); HGB 14.3 g/dL (11.2-15.7); Immature Grans % 0.3; Lymphocytes % 18.6; MCH 30.4 pg (27.0-33.0); MCHC 34.1 % (32.0-36.0); MCV 89 fL (80-95); MPV 10.3 fL (8.0-11.0); Monocytes % 7.4; Neutrophils % 72.3; Platelet Count 173 10^3/uL (130-400); RDW 13.4 % (11.7-14.6); RDW-SD 43.6 fL; WBC 7.27 10^3/uL (4.4-10.8)
[2022-11-22 12:23] LABS: Bilirubin Small (Negative); Blood Trace-intact (Negative); Clarity Sl Cloudy (Clear); Glucose 100 mg/dL (Negative); Ketones Negative (Negative); Leukocyte Esterase Large (Negative); Nitrite Negative (Negative); Specific Gravity >= 1.030 (1.005-1.025); Urobilinogen 0.2 EU/dL (Up TO 0.2); pH 5.5 (5-8)
[2022-11-22 12:31] LABS: Bacteria Few HPF (Negative); C & S Indicated? No/Sq. Contamination; Casts 0-2 Hyaline LPF (Negative); Crystals Moderate Amorphous HPF (Negative); Epithelial Cells Many HPF (Negative); Mucus Trace (Negative); RBC 0-2 HPF (0-2); WBC 20-50 HPF (0-5)
[2022-11-22 12:39] LABS: ALT 34 U/L (14-59); AST 36 U/L (15-37); Albumin 3.7 g/dL (3.4-5.0); Alkaline Phosphatase 94 U/L (46-116); Anion Gap 8.8 mmol/L (3-11); BUN 10 mg/dL (7-18); Bilirubin, Total 0.6 mg/dL (0.2-1.0); CO2 26.2 mmol/L (21.0-32.0); CREATININE 0.9 mg/dL (0.55-1.02); Calcium 8.5 mg/dL (8.5-10.1); Chloride 105 mmol/L (98-107); Creatine Kinase 59 U/L (26-192); Estimated GFR 67.92 (mL/min/1.73m2); Glucose 132 mg/dL (74-106); Potassium 3.4 mmol/L (3.5-5.1); Sodium 140 mmol/L (136-145); Total Protein 7.7 g/dL (6.4-8.2)
--- NOTE | 2022-11-22 13:00 | DI.CT_ITS ---
Exam(s) CT ABDOMEN PELVIS W EXAM: CT ABDOMEN PELVIS W CLINICAL HISTORY: abd pain, uti, recent partial sbo TECHNIQUE: Imaging Protocol: Axial computed tomography images with coronal and sagittal reformatted images were created and reviewed CONTRAST MATERIAL: Intravenous: Omnipaque 350 Contrast volume:100 mL Oral: No COMPARISON: CT CT ABDOMEN PELVIS W from 11/16/2022 FINDINGS: ABDOMEN: Lung Bases: Normal where visualized. Liver: Normal density. No measurable mass. Portal, Superior Mesenteric, and Splenic Veins: Unremarkable. Gallbladder and Biliary Tract: The patient is status post cholecystectomy. There is no biliary ducta l dilatation. Pancreas: Normal density, no abnormal calcifications or inflammatory process. Spleen: Normal. Adrenals: There is again seen a left adrenal lesion containing internal fat likely reflecting a myelo lipoma. Kidneys: Normal size, contour and axis. No radiodense stones or obstructive uropathy. No masses seen. Abdominal Aorta: Abdominal portion non-dilated. Atherosclerosis is present. Bowel: No obstruction or bowel wall thickening. No evidence of appendicitis. Peritoneal Cavity: No ascites, collection or mesenteric inflammatory response. No free air. Lymph Nodes: Within normal limits. Bones: Within normal limits for the patient's age. Soft Tissues: There again seen changes of a prior anterior abdominal wall surgery. Peripherally calc ified lesions in the subcutaneous tissues of the flank are again noted and may reflect injection gran uloma. PELVIS: Bladder: Symmetric distention, no gross wall thickening. Reproductive Organs: Unremarkable as visualized. Lymph Nodes: Within normal limits. Bones: Within normal limits for the patient's age. IMPRESSION: 1. No evidence of nephrolithiasis or hydronephrosis. 2. Chronic findings in the abdomen and pelvis. 3. Findings were discussed with Shilpi singh at 3:38 p.m. on 11/22/2022. RADIATION DOSE DELIVERED: 1,420.81mGy.cm Total DLP DATA REPOSITORY: All CT scans at this facility are submitted to the National Radiology Data Registry (NRDR) Dose Index Registry (DIR) with the [employer] (A[employer]). RADIATION OPTIMIZATION: All CT scans at this facility use at least one of these dose optimization te chniques: automated exposure control; mA and/or kV adjustment per patient size (includes targeted exa ms where dose is matched to clinical indication); or iterative reconstruction.
[2022-11-22 14:30] VITALS: BP 135/74; PULSE 64; RESP 18; O2SAT 98
[2022-11-22] MEDS: Omnipaque 350 MG/ML 100 ML BTL IJ (14:45)
[2022-11-22] MEDS: Normal Saline - Diluent 50 ML VIAL IJ (14:46)
--- NOTE | 2022-11-22 15:21 | W.ED.GENAD ---
Discharge Plan Disposition Patient Disposition: Home Condition: Stable Discharge Details Clinical Impression: Acute UTI Primary Care Provider: Silvio Verdugo ED Provider: Shilpi Lemus Home Meds and New Rx's Prescriptions: New cephalexin 500 mg tablet 500 mg PO BID Qty: 14 0RF Continued rosuvastatin 5 mg tablet 5 mg PO DAILY levothyroxine 125 mcg tablet 125 mcg PO DAILY Qty: 90 4RF cholecalciferol (vitamin D3) 1,000 unit capsule 2,000 unit PO DAILY Qty: 90 4RF spironolactone 50 mg tablet 50 mg PO DAILY Qty: 90 3RF trazodone 50 mg tablet 50 mg PO PRN Qty: 90 4RF Discharge Instructions Instructions: Urinary Tract Infection in Women (ED) Additional Instructions: Take antibiotics as prescribed Yogurt daily while on antibiotics Return earlier with fever, chills, or should he have new or worsening complaints Referrals: Silvio Verdugo [Primary Care Provider] - Discharge Data Discharge Date/Time-TO BE ENTERED AT DEPARTURE: 11/22/22 16:02 Medical Decision Making Secondary to your recent admission and stated symptoms by a thorough exam was ordered including CT abdomen and pelvis with contrast and diagnostic blood work was ordered CT per radiology of abdomen pelvis does not show evidence of acute abnormality, case was discussed personally with Dr. Charles, radiologist Bladder scan shows 0 cc post urination Urinalysis consistent with likely urinary tract infection for which she will be treated with oral antibiotics, pending urine culture Potassium mildly low at 3.4, will supplement at home Patient declines any complaints, she is ambulatory with steady gait her vitals are stable She is instructed to follow-up closely with her primary care physician and given very low threshold to return should she have new or worsening complaints Return precautions reviewed and patient expressed understanding HPI General Date/Time Provider Initiated Documentation: 11/22/22 11:38. HPI Narrative: This 72-year-old female with recent admission for partial small bowel obstruction presents with report of oliguria for the past several days. She denies any chest pain or shortness of breath. She denies any fever or chills. She thinks she has had approximately 6 pound weight gain since she was discharged from the hospital. She denies any dysuria. She states that she does not have nausea or vomiting and otherwise actually feels well. She denies any additional complaints at this time. Related Data Home Medications Medication Instructions Recorded Confirmed cholecalciferol (vitamin D3) 25 2,000 unit PO DAILY #90 tab-caps 09/29/18 11/22/22 mcg (1,000 unit) capsule levothyroxine 125 mcg tablet 125 mcg PO DAILY #90 tab-caps 02/03/21 11/22/22 spironolactone 50 mg tablet 50 mg PO DAILY #90 tabs 02/05/22 11/22/22 trazodone 50 mg tablet 50 mg PO PRN #90 tabs 04/12/22 11/22/22 rosuvastatin 5 mg tablet 5 mg PO DAILY 08/01/22 11/22/22 cephalexin 500 mg tablet 500 mg PO BID #14 tabs 11/22/22 Previous Rx's Medication Instructions Recorded cholecalciferol (vitamin D3) 25 2,000 unit PO DAILY #90 tab-caps 09/29/18 mcg (1,000 unit) capsule levothyroxine 125 mcg tablet 125 mcg PO DAILY #90 tab-caps 02/03/21 spironolactone 50 mg tablet 50 mg PO DAILY #90 tabs 02/05/22 trazodone 50 mg tablet 50 mg PO PRN #90 tabs 04/12/22 cephalexin 500 mg tablet 500 mg PO BID #14 tabs 11/22/22 Allergies Allergy/AdvReac Type Severity Reaction Status Date / Time Penicillins Allergy Severe Skin Rash Verified 11/22/22 11:26 ciprofloxacin [From Cipro] Allergy Intermediate Skin Rash Verified 11/22/22 12:51 Latex, Natural Rubber Allergy Intermediate Skin Rash Verified 11/22/22 12:51 nickel Allergy Intermediate SWELLING Verified 11/22/22 11:26 furosemide Allergy Unknown Verified 11/22/22 11:26 diphenhydramine AdvReac Severe RESTLESSNES Verified 11/22/22 11:26 S ropinirole HCl [From Requip] AdvReac Severe Visual Verified 11/22/22 11:26 Disturbances duloxetine AdvReac Intermediate DIARRHEA Verified 11/22/22 11:26 lamotrigine AdvReac Intermediate NAUSEA/VOMI Verified 11/22/22 11:26 TING lisinopril AdvReac Intermediate COUGH Verified 11/22/22 11:26 codeine AdvReac Unknown WIRED Verified 11/22/22 11:26 metoclopramide AdvReac Unknown hullucinati Verified 11/22/22 11:26 ons aspertame AdvReac Mild Skin Rash Uncoded 11/22/22 11:26 General Stated Complaint: Abd Prob JACQUI: 3 Review of Systems All systems reviewed & are unremarkable except as noted in HPI and below PFSH All Active Problems (Updated 11/22/22 @ 15:42 by GEORGIANA Dunbar) Acute UTI (Acute) Shortness of breath (Acute) Conductive hearing loss, external ear (Acute) Impacted cerumen, bilateral (Acute) Diarrhea (Acute) Edema, lower extremity (Acute) Pruritic condition (Acute) Palpitation (Acute) Encounter for postoperative wound check (Acute) Preoperative cardiovascular examination (Acute) Interstitial lung disease (Acute) Chronic abdominal pain (Acute) Tinnitus, bilateral (Acute) Sensorineural hearing loss of both ears (Acute) Elevated hemoglobin A1c (Acute) Family history of colon cancer (Chronic) Syncope (Chronic 10/10/07) Abnormal chest CT (Chronic) Sick sinus syndrome (Chronic) Vitamin D deficiency (Chronic 10/29/14) Ventral hernia without obstruction or gangrene (Chronic) recurrent; Repair; infected mesh 2001 and 2002 chronic abdominal pain Restless legs (Chronic) Pancreatic cyst (Chronic 08/19/15) [facility] [place] 08/25 EUS ?IPMN, FNA non diagnostic Obstructive sleep apnea syndrome (Chronic) SLEEP STUDY [facility] [place] 03/20 2013 trying oral apparatus Nausea and vomiting (Chronic) Delayed gastric emptying; 07/13-NL Ba swallow; 01/12-EGD=+HH; 01/14-UGI + GERD; 07/1757-[id number]-ciwzaye gastropathy 08/16 [facility] [place] delayed gastric emptying due to vertical banded gastroplasty (stomach stapling for obesity) 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) repeat CT at [facility] [place] due Jul 2016 Morbid obesity (Chronic) S/P stomach stapling Malignant neoplasm of female breast (Chronic 03/13/13) Right breast bx at [facility] [place]-+infiltration ductal Ca; + Lymph node; bilateral mastectomy + axillary node dissection Lymphedema of right arm (Chronic 07/11/17) Low back pain (Chronic) Knee pain (Chronic) 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) Impaired fasting glucose (Chronic 10/08/08) Hypothyroidism (Chronic) Hyperlipidemia (Chronic) Hydronephrosis, left (Chronic 08/19/15) incidental finding on abd CT [facility] [place] (f/u [facility] [place] urology) Gastroesophageal reflux disease with esophagitis (Chronic) gastric emptying delay; erosive gastropathy hiatal hernia 08/23/15 [facility] [place]; UPPER EUS Essential hypertension (Chronic 10/22/13) Disorder of vitamin B12 (Chronic) Depressive disorder (Chronic) Dental caries (Chronic 03/09/16) Conductive hearing loss, external ear (Chronic 07/12/16) Cardiac pacemaker in situ (Chronic) Medtronic dual lead pacemaker Original implant 03/15/2008 @ [facility] [place] for syncope/SND Adapta L [id number] RA Medtronic [id number] 03/15/2008 RV Medtronic [id number] 03/15/200808/2020 - Battery depleted. Above generator/pacer replaced - see [facility] [place] for details of pacer. Medical History Hyperpigmentation of oral cavity (09/08/13) Impacted cerumen, bilateral (07/12/16) Lipoma of buttock (03/03/15) Oral mucositis (07/12/16) Pacemaker battery depletion Postmenopausal bleeding (02/08/09) Swelling of surgical site Surgical History Breast, Mastectomy Bilateral w/axillary node dissection-right section X 3 Cholecystectomy Dilation and curettage Endometrial Biopsy NEG Excision, Lipoma RIGHT HIP HERNIA REPAIR X 6 History of section Open Carpal Tunnel release 1982 LEFT 1977 RIGHT Pacemaker (~2007) Replacement of total knee joint 2007 RIGHT 2011 LEFT Status post carpal tunnel release Status post cholecystectomy Status post hernia repair Status post total knee replacement Stomach Stapled 1989 Family History Mother Essential hypertension Diabetes Personal history of malignant neoplasm colon Hyperlipidemia Father Diabetes Personal history of malignant neoplasm colon, skin Sister Hyperlipidemia Sister Myalgia and myositis Sister Personal history of malignant neoplasm ovarian Celiac disease Hyperlipidemia Depression Sister Polycythemia vera Hyperlipidemia Celiac disease Paternal Grandfather Personal history of malignant neoplasm Liver Alcohol abuse Maternal Grandmother Essential hypertension Personal history of malignant neoplasm pancreatic Paternal Grandmother Personal history of malignant neoplasm Leukemia Maternal Grandfather Heart disease Son Depression Son Depression Substance abuse Other Family history of colon cancer Social History Smoking/Tobacco Use Status: Never Smoking risk assessment performed?: Yes Alcohol Intake: never Drug use: Never Substance use type: does not use What type of physical activity do you participate in: walking Duration: 15-30 minutes/day Frequency: 3-4 times per week Marie/Denominational: Yazdanism Agree to transfusion: No Do you feel safe at home: Yes Do you feel safe in your relationship?: Yes Exam Const General: cooperative, comfortable and no acute distress HENMT Other: moist mucous membranes Eyes Sclera: sclerae normal Resp Effort & Inspection: normal respiratory effort Cardio Rate: regular rate Rhythm: regular rhythm Extrem Other: 1+ edema to bilateral lower extremities Course Vital Signs Vital signs: Vital Signs Temperature 36.6 C 11/22/22 11:22 Pulse 83 11/22/22 11:22 Respiratory Rate 20 11/22/22 11:22 Blood Pressure 146/60 H 11/22/22 11:22 Pulse Oximetry 98 11/22/22 11:22 Temperature 36.6 C 11/22/22 11:22 Temperature Source Temporal Artery Scan 11/22/22 11:22 Pulse 72 11/22/22 12:00 Respiratory Rate 18 11/22/22 12:00 Respiratory Effort Non-Labored 11/22/22 11:27 Blood Pressure 133/71 11/22/22 12:00 Blood Pressure Position Sitting 11/22/22 11:22 Pulse Oximetry 97 11/22/22 12:00 Oxygen Delivery Method Room Air 11/22/22 12:00 Oxygen Flow Rate 0 11/22/22 12:00 Lab/Test Results Lab/Test Results: Laboratory Tests Range/Units 11/22/22 11/22/22 11/22/22 12:05 12:05 12:05 WBC (4.4-10.8) 10^3/uL 7.27 RBC (3.93-5.22) 10^6/uL 4.70 Hgb (11.2-15.7) g/dL 14.3 Hct (36.0-46.0) % 41.9 MCV (80-95) fL 89 MCH (27.0-33.0) pg 30.4 MCHC (32.0-36.0) % 34.1 RDW (11.7-14.6) % 13.4 Plt Count (130-400) 10^3/uL 173 MPV (8.0-11.0) fL 10.3 Immature Gran % 0.3 Neutrophils % 72.3 Lymphocytes % 18.6 Monocytes % 7.4 Eosinophils % 1.0 Basophils % 0.4 Nucleated RBC % (0.0-0.3) % 0.0 Absolute Neutrophils (1.2-6.7) 10^3/uL 5.26 Absolute Lymphocytes (1.2-3.4) 10^3/uL 1.35 Absolute Monocytes (0.1-0.8) 10^3/uL 0.54 Absolute Eosinophils (0.0-0.7) 10^3/uL 0.07 Absolute Basophils (0.0-0.2) 10^3/uL 0.03 Sodium (136-145) mmol/L 140 Potassium (3.5-5.1) mmol/L 3.4 L Chloride (98-107) mmol/L 105 Carbon Dioxide (21.0-32.0) mmol/L 26.2 Anion Gap (3-11) mmol/L 8.8 BUN (7-18) mg/dL 10 Creatinine (0.55-1.02) mg/dL 0.9 Est GFR (CKD-EPI 2020) (mL/min/1.73m2) 67.92 Glucose (74-106) mg/dL 132 H Calcium (8.5-10.1) mg/dL 8.5 Total Bilirubin (0.2-1.0) mg/dL 0.6 AST (15-37) U/L 36 ALT (14-59) U/L 34 Alkaline Phosphatase (46-116) U/L 94 Creatine Kinase (26-192) U/L 59 Total Protein (6.4-8.2) g/dL 7.7 Albumin (3.4-5.0) g/dL 3.7 Urine Color (Yellow) Yellow Urine Clarity (Clear) Sl Cloudy Urine pH (5-8) 5.5 Ur Specific [place] (1.005-1.025) >= 1.030 H Urine Protein (Negative) mg/dL 30 H Urine Ketones (Negative) mg/dL Negative Urine Blood (Negative) Trace-intact H Urine Nitrite (Negative) Negative Urine Bilirubin (Negative) Small H Urine Urobilinogen (Up TO 0.2) EU/dL 0.2 Ur Leukocyte Esterase (Negative) Large H Urine RBC (0-2) HPF 0-2 Urine WBC (0-5) HPF 20-50 H Ur Epithelial Cells (Negative) HPF Many Urine Crystals (Negative) HPF Moderate Amorphous Urine Bacteria (Negative) HPF Few Urine Casts (Negative) LPF 0-2 Hyaline Urine Mucus (Negative) Trace Ur Culture Indicated? No/Sq. Contamination Urine Glucose (Negative) mg/dL 100
[2022-11-22 15:30] VITALS: BP 132/65; PULSE 67; RESP 18; O2SAT 99
== END 2022-11-22 16:02 | disposition home or self-care (01) ==
PROVIDERS: Emergency Provider Physician Assistant; PCP Physician Assistant
DX: N39.0 Urinary tract infection, site not specified (principal); R60.0 Localized edema; E87.6 Hypokalemia
CPT/HCPCS: 36415; 80053; 82550; 96360; 99285; 74177; 81003; 81015; 85025; 99284; J3490

== ENCOUNTER 2023-08-28 08:49 | Outpatient (REF) | payer MEDICARE, MEDICAID, SELFPAY ==
[2023-08-28 16:11] LABS: ALT 23 U/L (14-59); AST 22 U/L (15-37); Albumin 3.7 g/dL (3.4-5.0); Alkaline Phosphatase 105 U/L (46-116); Anion Gap 10.2 mmol/L (3-11); BUN 12 mg/dL (7-18); Bilirubin, Total 0.6 mg/dL (0.2-1.0); CO2 25.8 mmol/L (21.0-32.0); CREATININE 0.8 mg/dL (0.55-1.02); Calcium 9.4 mg/dL (8.5-10.1); Calculated LDL 85 mg/dL (<100); Chloride 103 mmol/L (98-107); Cholesterol 170 mg/dL (<200); Estimated GFR 78.24 (mL/min/1.73m2); Glucose 139 mg/dL (74-106); HDL Cholesterol 63 mg/dL (40-60); Potassium 4.4 mmol/L (3.5-5.1); Sodium 139 mmol/L (136-145); TSH 0.29 uIU/mL (0.36-3.74); Total Protein 7.5 g/dL (6.4-8.2); Triglyceride 114 mg/dL (<150); Vitamin B12 1770 pg/mL (193-986)
== END 2023-08-28 08:50 | disposition home or self-care (01) ==
LOC: NCHCN 08:49
PROVIDERS: PCP Physician Assistant; Visit Provider Physician Assistant
DX: E78.5 Hyperlipidemia, unspecified (principal); E53.8 Deficiency of other specified B group vitamins; E03.9 Hypothyroidism, unspecified
CPT/HCPCS: 80053; 80061; 82607; 84443

== ENCOUNTER 2023-09-18 11:34 | Outpatient (CLI) | payer MEDICARE, MEDICAID, SELFPAY ==
[2023-09-18 13:26] LABS: Hemoglobin A1C 6.3 % (<5.7)
== END 2023-09-18 11:35 | disposition home or self-care (01) ==
LOC: LOS 11:35
PROVIDERS: PCP Physician Assistant; Visit Provider Physician Assistant
DX: R73.9 Hyperglycemia, unspecified (principal); R53.83 Other fatigue
CPT/HCPCS: 36415; 82533; 83036

== ENCOUNTER 2023-10-10 10:29 | Outpatient (CLI) | payer MEDICARE, MEDICAID, SELFPAY ==
--- NOTE | 2023-10-10 11:00 | RT.EKG_ITS ---
APPROVED REPORT Exam: Resting ECG Reason for Exam: SOB,chest pain Patient Location: O HR:76 bpm ECG Measurements Heart Rate 76 AXIS DE 182 P 4 QRSd 97 QRS -45 QT 388 T 37 QTc 437 Conclusion Sinus rhythm...normal P axis, V-rate 50- 99 LAFB
== END 2023-10-10 10:30 | disposition home or self-care (01) ==
LOC: DI.CARD 11:16
PROVIDERS: PCP Physician Assistant; Visit Provider Internal Medicine Cardiovascular Disease
DX: R06.02 Shortness of breath (principal)
CPT/HCPCS: 93010

== ENCOUNTER → 2023-10-10 10:29 | Outpatient (BNVA) | payer MEDICARE, MEDICAID, SELFPAY | PROVIDERS: PCP Physician Assistant; Referring Provider Physician Assistant; Visit Provider Internal Medicine Cardiovascular Disease | DX: E66.9 Obesity, unspecified (principal); K43.9 Ventral hernia without obstruction or gangrene; R06.02 Shortness of breath; I10 Essential (primary) hypertension; Z95.0 Presence of cardiac pacemaker | CPT/HCPCS: 93005; 99214 ==

== ENCOUNTER → 2024-02-27 11:14 | Outpatient (BNVA) | payer MEDICARE, SELFPAY | PROVIDERS: PCP Physician Assistant; Referring Provider Physician Assistant; Visit Provider Surgery | DX: Z12.11 Encounter for screening for malignant neoplasm of colon (principal); R11.2 Nausea with vomiting, unspecified; R73.01 Impaired fasting glucose; E03.9 Hypothyroidism, unspecified; E53.8 Deficiency of other specified B group vitamins; R10.9 Unspecified abdominal pain; G89.29 Other chronic pain; E66.1 Drug-induced obesity; Z68.41 Body mass index [BMI] 40.0-44.9, adult | CPT/HCPCS: 99214 ==

== ENCOUNTER 2024-02-27 16:06 | Outpatient (REF) | payer MEDICARE, SELFPAY ==
[2024-02-27 17:06] LABS: Hemoglobin A1C 6.4 % (<5.7)
== END 2024-02-27 16:07 | disposition home or self-care (01) ==
LOC: NCHCN 16:06
PROVIDERS: PCP Physician Assistant; Visit Provider Physician Assistant
DX: R73.03 Prediabetes (principal); E03.9 Hypothyroidism, unspecified
CPT/HCPCS: 83036; 84443

== ENCOUNTER 2024-04-01 02:47 | Emergency (ER) | payer MEDICARE, SELFPAY ==
[2024-04-01] VITALS (20 sets, daily range): BP systolic 126–178; BP diastolic 60–83; PULSE 71–87; RESP 14–26; TEMP 36.5–36.6; O2SAT 90–98
--- NOTE | 2024-04-01 02:45 | RT.EKG_ITS ---
APPROVED REPORT Exam: Resting ECG Reason for Exam: vomiting Patient Location: E HR:76 bpm ECG Measurements Heart Rate 76 AXIS NH 204 P 61 QRSd 103 QRS -38 QT 434 T 34 QTc 489 Conclusion Sinus rhythm...normal P axis, V-rate 60- 99 Left axis deviation...QRS axis (-30,-90) no ST segment or T wave abnormalitites to suggest occlusive TX
--- NOTE | 2024-04-01 02:45 | DI.CT_ITS ---
Exam(s) CT ABDOMEN PELVIS W EXAM: CT ABDOMEN PELVIS W CLINICAL HISTORY: vomiting, chronic abdominal pain. TECHNIQUE: Imaging Protocol: Axial computed tomography images with coronal and sagittal reformatted images were created and reviewed CONTRAST MATERIAL: Intravenous: Omnipaque-350 100cc Oral: None COMPARISON: CT ABD PELVIS WITH CONTRAST from 03/11/2013 CT ABD PELVIS WITH CONTRAST from 11/17/[address] ABDOMEN PELVIS W from 11/22/2022 FINDINGS: VISUALIZED LUNG BASES: No nodules nor pleural effusions evident. Stable benign-appearing subpleural markings in the posterior basal segment of the left lower lobe are unchanged. Cardiac pacemaker wire s noted. ABDOMEN: Again noted is evidence of previous gastric surgery and wide eventration of the anterior abdominal wa ll, also unchanged. No evidence of bowel obstruction, free air, nor abscess. LIVER: There are no focal hepatic lesions evident. No dilated intrahepatic ducts. GALLBLADDER/BILIARY: Gallbladder surgically absent. CBD is not dilated. PANCREAS: No evidence of pancreatic mass nor dilatation of the pancreatic duct. SPLEEN: Spleen is not enlarged. No obvious intrasplenic lesions. Splenic and portal veins are paten t. ADRENALS: Right adrenal gland unremarkable. Described hypodense and fat containing mass in the left adrenal gland remains stable and given the fat content is probably a myelolipoma. KIDNEYS:No solid renal masses nor calculi. There is some prominence of the collecting systems of bot h kidneys which is unchanged and difficult to differentiate mild UPJ obstruction from parapelvic cyst s here without a delayed post-contrast sequence. However, this finding is unchanged from prior CT sc ans dating back to at least 2016. The ureters are not dilated. URINARY BLADDER: Partially collapsed. Pelvic ureters are not dilated.. ABDOMINAL AORTA: Abdominal aorta is not enlarged. LYMPH NODES:There is no retroperitoneal nor paraaortic adenopathy. ABDOMINAL WALL: See above. Evidence of but appears to be anterior abdominal wall hernia repair. GI: There is no evidence of bowel obstruction, free air, nor abscess. There is diffuse fat halo sign throughout the length of the proximal 2/3 of the colon again evident. PELVIS: GI: Appendix is not able to be identified as a separate structure but there is no evidence of obvious appendicitis.No evidence of sigmoid diverticulitis. LYMPH NODES: There is no intrapelvic nor inguinal adenopathy. REPRODUCTIVE: Uterus appears normal size. There is a calcific density evident in the left ovary, not previously present. There does not appear to be an ominous mass in the ovary. Opposite-right ovary is difficult to identify. There is no free fluid in the pelvis. URINARY BLADDER: Partially collapsed and difficult to assess for subtle abnormalities. OSSEOUS: No fractures and no significant osseous lesions. Findings suggestive of sacroiliitis. IMPRESSION: 1. Multiple findings as described individually above, all previously present. 2. However, there is also fat halo sign noted throughout the length of the proximal 2/3 of the colon. This can be a normal finding but is most often seen in chronic inflammatory bowel disease such as l ongstanding ulcerative colitis. In this case there also appears to be evidence of sacroiliitis which can also be a finding related to chronic inflammatory bowel disease. 3. Stable eventration of the abdominal wall again noted. No evidence of bowel obstruction. RADIATION DOSE DELIVERED: 1,448.39mGy.cm Total DLP DATA REPOSITORY: All CT scans at this facility are submitted to the National Radiology Data Registry (NRDR) Dose Index Registry (DIR) with the [employer] (A[employer]). RADIATION OPTIMIZATION: All CT scans at this facility use at least one of these dose optimization te chniques: automated exposure control; mA and/or kV adjustment per patient size (includes targeted exa ms where dose is matched to clinical indication); or iterative reconstruction.
--- NOTE | 2024-04-01 02:45 | DI.CT_ITS ---
Exam(s) CT HEAD WO EXAM: CT HEAD WO CLINICAL HISTORY: acute N/V. TECHNIQUE: Imaging Protocol: Axial computed tomography images with coronal and sagittal reformatted images were created and reviewed COMPARISON: No exams were available for comparison FINDINGS: There are no skull fractures. There is no fluid in the visualized paranasal sinuses. There is no evidence of intracranial hemorrhage, mass effect, or shift of midline structures. There are no extra-axial fluid collections. The ventricles are not enlarged or shifted and there is no blo od within the ventricular system nor within the basal cisterns. Mild bilateral periventricular hypodensity consistent with chronic small vessel disease, unchanged fr om previous. IMPRESSION: No acute intracranial findings on this noninfused CT scan of the brain. RADIATION DOSE DELIVERED: 671.48mGy.cm Total DLP DATA REPOSITORY: All CT scans at this facility are submitted to the National Radiology Data Registry (NRDR) Dose Index Registry (DIR) with the [employer] ([employer]). RADIATION OPTIMIZATION: All CT scans at this facility use at least one of these dose optimization te chniques: automated exposure control; mA and/or kV adjustment per patient size (includes targeted exa ms where dose is matched to clinical indication); or iterative reconstruction.
[2024-04-01 03:01] LABS: Abs Immature Grans 0.04 10^3/uL (0.0-0.06); Absolute Basophil Count 0.03 10^3/uL (0.0-0.2); Absolute Eosinophil Count 0.16 10^3/uL (0.0-0.7); Absolute Lymphocyte Count 2.37 10^3/uL (1.2-3.4); Absolute Monocyte Count 0.89 10^3/uL (0.1-0.8); Absolute Neutrophil Count 5.26 10^3/uL (1.2-6.7); Basophils % 0.3 %; Eosinophils % 1.8 %; HCT 42.9 % (36.0-46.0); HGB 15.2 g/dL (11.2-15.7); Immature Grans % 0.5 %; Lymphocytes % 27.1 %; MCH 31.7 pg (27.0-33.0); MCHC 35.4 % (32.0-36.0); MCV 89 fL (80-95); MPV 10.1 fL (8.0-11.0); Monocytes % 10.2 %; Neutrophils % 60.1 %; Platelet Count 201 10^3/uL (130-400); RDW 12.4 % (11.7-14.6); RDW-SD 40.8 fL; WBC 8.75 10^3/uL (4.4-10.8)
[2024-04-01 03:10] LABS: Lactate 2.2 mmol/L (0.6-1.4)
[2024-04-01] MEDS: Normal Saline 500 ML IV (03:17)
[2024-04-01] MEDS: Ondansetron 4 MG/2 ML VIAL IVP (03:18)
[2024-04-01] MEDS: Omnipaque 350 MG/ML 100 ML BTL IJ (03:25)
[2024-04-01] MEDS: Normal Saline Flush 10 ML SYR IVP (03:26)
[2024-04-01] MEDS: Normal Saline - Diluent 50 ML VIAL IJ (03:27)
[2024-04-01 03:31] LABS: ALT 29 U/L (14-59); AST 21 U/L (15-37); Alkaline Phosphatase 90 U/L (46-116); Anion Gap 10.3 mmol/L (3-11); BUN 15 mg/dL (7-18); Bilirubin, Total 0.6 mg/dL (0.2-1.0); CO2 23.7 mmol/L (21.0-32.0); CREATININE 0.9 mg/dL (0.55-1.02); Calcium 9.5 mg/dL (8.5-10.1); Chloride 104 mmol/L (98-107); Glucose 198 mg/dL (74-106); Magnesium 1.4 mg/dL (1.8-2.4); Potassium 3.7 mmol/L (3.5-5.1); Sodium 138 mmol/L (136-145)
[2024-04-01 03:33] LABS: Troponin I < 50 ng/L (< or =60)
[2024-04-01 03:38] LABS: TSH (W/Ref FT4) 0.29 uIU/mL (0.36-3.74)
[2024-04-01 03:56] LABS: FREE T4 1.34 ng/dL (0.76-1.46)
--- NOTE | 2024-04-01 04:23 | NUR.NOTE ---
New Advance directive scanned into chart
[2024-04-01 04:40] LABS: Lactate 1.8 mmol/L (0.6-1.4)
[2024-04-01 04:56] LABS: Bilirubin Negative (Negative); Blood Trace-intact (Negative); Clarity Clear (Clear); Glucose Negative (Negative); Ketones Negative (Negative); Leukocyte Esterase Negative (Negative); Nitrite Negative (Negative); Specific Gravity 1.015 (1.005-1.025); Urobilinogen 0.2 mg/dL (Up to 0.2)
--- NOTE | 2024-04-01 05:04 | W.ED.GENAD ---
Discharge Plan Disposition Patient Disposition: Home Condition: Good Discharge Details Clinical Impression: Light-headed, Medication reaction, Vomiting Primary Care Provider: Silvio Verdugo ED Provider: Sujatha Sotomayor Home Meds and New Rx's Prescriptions: New ondansetron 4 mg tablet,disintegrating 4 mg PO Q8H PRNQty: 10 0RF Continued rosuvastatin 5 mg tablet 5 mg PO DAILY levothyroxine 125 mcg tablet 125 mcg PO DAILY Qty: 90 4RF spironolactone 50 mg tablet 100 mg PO DAILY cyanocobalamin (vitamin B-12) 1,000 mcg capsule 1,000 mcg PO DAILY Discontinued polyethylene glycol 3350 17 gram/dose powder See Rx Instructions .ROUTE .COMPLEX Qty: 238 0RF Dose Instruction: MIX 17 GRAMS IN LIQUID AND DRINK BY MOUTH ONCE DAILY FOR BOWEL PREP Rx Instructions: MIX 17 GRAMS IN LIQUID AND DRINK BY MOUTH ONCE DAILY FOR BOWEL PREP Discharge Instructions Instructions: Acute Nausea and Vomiting (ED) Additional Instructions: Ondansetron up to every 8 hours as needed for vomiting. Call your primary care doctor today to schedule a visit within the next 3 days to followup on your visit here. Do not take another dose of ozempic until after discussing it with your doctor. Return to the emergency department for new or worsening symptoms including abdominal pain, inability to keep down fluids, feeling like you are going ot pass out, or if you have any other concerns. Referrals: Silvio Verdugo [Primary Care Provider] - [facility] General Mode of arrival: EMS. Date/Time Provider Initiated Documentation: 04/01/24 02:48. Limitations to Documentation: no limitations. Information obtained by: patient and old records reviewed. HPI Narrative: 73yo F with hx obesity, HTN, DM, hypothyroid, abdominal hernia, pacemaker in place, presenting via EMS for nausea, vomiting, and lightheadedness. Onset this evening while in bed. No vertigo, headache, numbness, tingling, or weakness. No new abdominal pain; does have chronic abdominal pain which she reports is unchanged. No constipation or diarrhea. No chest pain, shortness of breath, or syncope. Started Ozempic yesterday. Otherwise in her usual state of health with no fevers, chills, rash, dysuria, hematuria, or other concerns. No sick contacts. Related Data Home Medications Medication Instructions Recorded Confirmed levothyroxine 125 mcg tablet 125 mcg PO DAILY #90 tab-caps 03/26/21 05/22/24 rosuvastatin 5 mg tablet 5 mg PO DAILY 08/01/22 04/01/24 cyanocobalamin (vitamin B-12) 1,000 mcg PO DAILY 10/10/23 04/01/24 1,000 mcg capsule spironolactone 50 mg tablet 100 mg PO DAILY 10/10/23 04/01/24 ondansetron 4 mg disintegrating 4 mg PO Q8H PRN #10 tabs 04/01/24 tablet Previous Rx's Medication Instructions Recorded levothyroxine 125 mcg tablet 125 mcg PO DAILY #90 tab-caps 02/03/21 ondansetron 4 mg disintegrating 4 mg PO Q8H PRN #10 tabs 04/01/24 tablet Allergies Allergy/AdvReac Type Severity Reaction Status Date / Time Penicillins Allergy Severe Skin Rash Verified 04/01/24 03:27 ciprofloxacin [From Cipro] Allergy Intermediate Skin Rash Verified 04/01/24 03:27 Latex, Natural Rubber Allergy Intermediate Skin Rash Verified 04/01/24 03:27 nickel Allergy Intermediate SWELLING Verified 04/01/24 03:27 furosemide Allergy Unknown Other (See Verified 04/01/24 03:27 Comment) diphenhydramine AdvReac Severe RESTLESSNES Verified 04/01/24 03:27 S ropinirole HCl [From Requip] AdvReac Severe Visual Verified 04/01/24 03:27 Disturbances duloxetine AdvReac Intermediate DIARRHEA Verified 04/01/24 03:27 lamotrigine AdvReac Intermediate NAUSEA/VOMI Verified 04/01/24 03:27 TING lisinopril AdvReac Intermediate COUGH Verified 04/01/24 03:27 codeine AdvReac Unknown WIRED Verified 04/01/24 03:27 metoclopramide AdvReac Unknown hullucinati Verified 04/01/24 03:27 ons aspertame AdvReac Mild Skin Rash Uncoded 04/01/24 03:27 General Stated Complaint: Nausea/Vomit/Diar JACQUI: 3 Review of Systems Narrative: see HPI Exam Narrative Exam Narrative: General: Alert, non-toxic. Head: Normocephalic, atraumatic Neck: Trachea midline, ?Neck supple. ENT: ?MMM.? No oropharygeal lesions or exudate. Cardiac: ?RRR, no murmurs appreciated Resp: No respiratory distress. CTAB. Abd: ?Soft, obese, palpable hernia soft with no overlying skin changes, non-tender. : ?No suprapubic tenderness Extremities: ?No deformities.? No peripheral edema. Neuro: ? GCS 15.? PERRL.? EOMI.? Fluent speech, no dysarthria. Normal sensation in V1, V2, and V3 segments bilaterally. No asymmetry, no nasolabial fold flattening. Normal hearing to speech. Normal palatal elevation, no uvular deviation. 5/5 head turn and 5/5 shoulder shrug bilaterally. Midline tongue protrusion Motor- 4+/5 strength symmetric bilateral upper and lower extremities Sensation- ?Intact to light touch and symmetric multiple dermatomes including upper and lower extremities Coordination- No dysmetria on finger to nose Course Vital Signs Vital signs: Vital Signs Respiratory Rate 04/01/24 02:49 Pulse Oximetry 95 04/01/24 02:49 Temperature 36.6 C 04/01/24 03:43 Temperature Source Oral 04/01/24 03:43 Pulse 82 04/01/24 04:16 Pulse 77 04/01/24 04:30 Respiratory Rate 17 04/01/24 04:30 Respiratory Effort Normal 04/01/24 03:04 Blood Pressure 145/83 H 04/01/24 04:16 Blood Pressure Mean 105 04/01/24 04:16 Blood Pressure Position Sitting 04/01/24 03:43 Pulse Oximetry 95 04/01/24 04:45 Oxygen Delivery Method Nasal Cannula 04/01/24 03:43 Oxygen Flow Rate 2 04/01/24 03:43 Comment Mild abdominal pain that is chronic. Has Large abdominal hernia. 04/01/24 02:52 Lab/Test Results Lab/Test Results: Laboratory Tests Range/Units 04/01/24 04/01/24 04/01/24 02:55 04:38 04:49 WBC (4.4-10.8) 10^3/uL 8.75 RBC (3.93-5.22) 10^6/uL 4.80 Hgb (11.2-15.7) g/dL 15.2 Hct (36.0-46.0) % 42.9 MCV (80-95) fL 89 MCH (27.0-33.0) pg 31.7 MCHC (32.0-36.0) % 35.4 RDW (11.7-14.6) % 12.4 Plt Count (130-400) 10^3/uL 201 MPV (8.0-11.0) fL 10.1 Immature Gran % % 0.5 Neutrophils % % 60.1 Lymphocytes % % 27.1 Monocytes % % 10.2 Eosinophils % % 1.8 Basophils % % 0.3 Nucleated RBC % (0.0-0.3) % 0.0 Absolute Neutrophils (1.2-6.7) 10^3/uL 5.26 Absolute Lymphocytes (1.2-3.4) 10^3/uL 2.37 Absolute Monocytes (0.1-0.8) 10^3/uL 0.89 H Absolute Eosinophils (0.0-0.7) 10^3/uL 0.16 Absolute Basophils (0.0-0.2) 10^3/uL 0.03 VBG Lactate (0.6-1.4) mmol/L 2.2 H* 1.8 H Sodium (136-145) mmol/L 138 Potassium (3.5-5.1) mmol/L 3.7 Chloride (98-107) mmol/L 104 Carbon Dioxide (21.0-32.0) mmol/L 23.7 Anion Gap (3-11) mmol/L 10.3 BUN (7-18) mg/dL 15 Creatinine (0.55-1.02) mg/dL 0.9 Est GFR (CKD-EPI 2020) (mL/min/1.73m2) 67.50 Glucose (74-106) mg/dL 198 H Calcium (8.5-10.1) mg/dL 9.5 Magnesium (1.8-2.4) mg/dL 1.4 L Total Bilirubin (0.2-1.0) mg/dL 0.6 AST (15-37) U/L 21 ALT (14-59) U/L 29 Alkaline Phosphatase (46-116) U/L 90 Troponin I (< or =60) ng/L < 50 Total Protein (6.4-8.2) g/dL 8.0 Albumin (3.4-5.0) g/dL 4.0 TSH (0.36-3.74) uIU/mL 0.29 L Free T4 (0.76-1.46) ng/dL 1.34 Urine Color (Yellow) Yellow Urine Clarity (Clear) Clear Urine pH (5-8) 5.[address] (1.005-1.025) 1.015 Urine Protein (Neg-Trace) mg/dL Negative Urine Ketones (Negative) mg/dL Negative Urine Blood (Negative) Trace-intact H Urine Nitrite (Negative) Negative Urine Bilirubin (Negative) Negative Urine Urobilinogen (Up to 0.2) mg/dL 0.2 Ur Leukocyte Esterase (Negative) Negative Urine Glucose (Negative) mg/dL Negative Medical Decision Making 73yo F with hx obesity, HTN, DM, hypothyroid, abdominal hernia, pacemaker in place, presenting via EMS for nausea, vomiting, and lightheadedness. Given zofran from EMS [employer]. No neurologic symptoms, vertigo, or falls. Hypertensive on arrival, vital signs otherwise reassuring. Normal neurologic exam. Benign abdominal exam with large ventral hernia with no signs of incarceration or strangulation. Suspect most likely medication reaction to Ozempic however given age and significant risk factors warrans workup for ACS and acute intrabdominal pathology. EKG NSR, no ST segment or T wave abnormalities to suggest occlusive AR. Labs reviewed as below, CBC with no leukocytosis or anemia, CMP with moderate hyperglycemia, no actionable abnormalities, TSH low with normal T4, troponin negative. Lactate borderline at 2.2 UA not suggestive of infection. Repeat lactate after 500cc of IVF improved at 1.8. Delta troponin negative. CT head independently reviewed, no intracranial hemmoeraghe or mass on my view, agree with radiology read below. CT abd/pelvis independently reviewed, no obstruction or free fluid on my view, agree with radiology read below. On reassessment she reports feeling much improved. No longer nauseated. Normal vital signs. PO challenged and tolerated well. Instructed to followup with her primary care doctor, discuss her visit today and whether or not to continue with ozempic. Discharged home with small prescription for zofran; discharge instructions and return precautions were reviewed with patient who verbalized understanding. All questions were answered and she is in full agreement with the plan. Imaging Data Radiologic Study: Imaging: CT Scan Radiologist's impression: IMPRESSION: No acute brain findings. IMPRESSION: Stable eventration of the abdominal wall. No evidence of bowel obstruction. Multiple chronic findings as above. Lab Data Lab results reviewed: Yes I reviewed the patient's lab results. Labs: Laboratory Tests Range/Units 04/01/24 04/01/24 04/01/24 02:55 04:38 04:49 WBC (4.4-10.8) 10^3/uL 8.75 RBC (3.93-5.22) 10^6/uL 4.80 Hgb (11.2-15.7) g/dL 15.2 Hct (36.0-46.0) % 42.9 MCV (80-95) fL 89 MCH (27.0-33.0) pg 31.7 MCHC (32.0-36.0) % 35.4 RDW (11.7-14.6) % 12.4 Plt Count (130-400) 10^3/uL 201 MPV (8.0-11.0) fL 10.1 Immature Gran % % 0.5 Neutrophils % % 60.1 Lymphocytes % % 27.1 Monocytes % % 10.2 Eosinophils % % 1.8 Basophils % % 0.3 Nucleated RBC % (0.0-0.3) % 0.0 Absolute Neutrophils (1.2-6.7) 10^3/uL 5.26 Absolute Lymphocytes (1.2-3.4) 10^3/uL 2.37 Absolute Monocytes (0.1-0.8) 10^3/uL 0.89 H Absolute Eosinophils (0.0-0.7) 10^3/uL 0.16 Absolute Basophils (0.0-0.2) 10^3/uL 0.03 VBG Lactate (0.6-1.4) mmol/L 2.2 H* 1.8 H Sodium (136-145) mmol/L 138 Potassium (3.5-5.1) mmol/L 3.7 Chloride (98-107) mmol/L 104 Carbon Dioxide (21.0-32.0) mmol/L 23.7 Anion Gap (3-11) mmol/L 10.3 BUN (7-18) mg/dL 15 Creatinine (0.55-1.02) mg/dL 0.9 Est GFR (CKD-EPI 2020) (mL/min/1.73m2) 67.50 Glucose (74-106) mg/dL 198 H Calcium (8.5-10.1) mg/dL 9.5 Magnesium (1.8-2.4) mg/dL 1.4 L Total Bilirubin (0.2-1.0) mg/dL 0.6 AST (15-37) U/L 21 ALT (14-59) U/L 29 Alkaline Phosphatase (46-116) U/L 90 Troponin I (< or =60) ng/L < 50 Total Protein (6.4-8.2) g/dL 8.0 Albumin (3.4-5.0) g/dL 4.0 TSH (0.36-3.74) uIU/mL 0.29 L Free T4 (0.76-1.46) ng/dL 1.34 Urine Color (Yellow) Yellow Urine Clarity (Clear) Clear Urine pH (5-8) 5.[address] (1.005-1.025) 1.015 Urine Protein (Neg-Trace) mg/dL Negative Urine Ketones (Negative) mg/dL Negative Urine Blood (Negative) Trace-intact H Urine Nitrite (Negative) Negative Urine Bilirubin (Negative) Negative Urine Urobilinogen (Up to 0.2) mg/dL 0.2 Ur Leukocyte Esterase (Negative) Negative Urine RBC (0-2) HPF 3-5 H Urine WBC (0-5) HPF 0-2 Ur Epithelial Cells (Negative) HPF Few Urine Crystals (Negative) HPF Negative Urine Bacteria (Negative) HPF Rare Urine Mucus (Negative) Negative Ur Culture Indicated? No Urine Glucose (Negative) mg/dL Negative Quality:SDOH Health Related Social Needs: No Data to Display PFSH All Active Problems (Updated 04/01/24 @ 06:36 by Sujatha Sotomayor MD) Vomiting (Acute) Medication reaction (Acute) Light-headed (Acute) Class 3 drug-induced obesity with serious comorbidity and body mass index (BMI) of 40.0 to 44.9 in adult (Acute) Impairment of speech discrimination (Acute) Shortness of breath (Acute) Conductive hearing loss, external ear (Acute) Impacted cerumen, bilateral (Acute) Diarrhea (Acute) Edema, lower extremity (Acute) Pruritic condition (Acute) Palpitation (Acute) Encounter for postoperative wound check (Acute) Preoperative cardiovascular examination (Acute) Interstitial lung disease (Acute) Chronic abdominal pain (Acute) Tinnitus, bilateral (Acute) Sensorineural hearing loss of both ears (Acute) Elevated hemoglobin A1c (Acute) Family history of colon cancer (Chronic) Syncope (Chronic 10/10/07) Abnormal chest CT (Chronic) Sick sinus syndrome (Chronic) Vitamin D deficiency (Chronic 10/29/14) Ventral hernia without obstruction or gangrene (Chronic) recurrent; Repair; infected mesh 2001 and 2002 chronic abdominal pain Restless legs (Chronic) Pancreatic cyst (Chronic 08/19/15) [facility] GI eval 08/25 EUS ?IPMN, FNA non diagnostic Obstructive sleep apnea syndrome (Chronic) SLEEP STUDY [facility] 03/20 2013 trying oral apparatus Nausea and vomiting (Chronic) Delayed gastric emptying; 07/13-NL Ba swallow; 01/12-EGD=+HH; 01/14-UGI + GERD; 07/1748-[id number]-vpcoevr gastropathy 08/16 [facility] delayed gastric emptying due to vertical banded gastroplasty (stomach stapling for obesity) 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) repeat CT at [facility] due Jul 2016 Morbid obesity (Chronic) S/P stomach stapling Malignant neoplasm of female breast (Chronic 03/13/13) Right breast bx at [facility]-+infiltration ductal Ca; + Lymph node; bilateral mastectomy + axillary node dissection Lymphedema of right arm (Chronic 07/11/17) Low back pain (Chronic) Knee pain (Chronic) 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) Impaired fasting glucose (Chronic 10/08/08) Hypothyroidism (Chronic) Hyperlipidemia (Chronic) Hydronephrosis, left (Chronic 08/19/15) incidental finding on abd CT [facility] (f/u [facility] urology) Gastroesophageal reflux disease with esophagitis (Chronic) gastric emptying delay; erosive gastropathy hiatal hernia 08/23/15 [facility]; UPPER EUS Essential hypertension (Chronic 10/22/13) Disorder of vitamin B12 (Chronic) Depressive disorder (Chronic) Dental caries (Chronic 03/09/16) Conductive hearing loss, external ear (Chronic 07/12/16) Cardiac pacemaker in situ (Chronic) Medtronic dual lead pacemaker Original implant 03/15/2008 @ [facility] for syncope/SND Adapta L [id number] RA Medtronic [id number] 03/15/2008 RV Medtronic [id number] 03/15/200808/2020 - Battery depleted. Above generator/pacer replaced - see [facility] for details of pacer. Medical History Swelling of surgical site Pacemaker battery depletion Hyperpigmentation of oral cavity (09/08/13) Lipoma of buttock (03/03/15) Postmenopausal bleeding (02/08/09) Oral mucositis (07/12/16) Impacted cerumen, bilateral (07/12/16) Surgical History History of section Status post carpal tunnel release Status post cholecystectomy Status post hernia repair Status post total knee replacement Replacement of total knee joint 2008 RIGHT 2011 LEFT Stomach Stapled 1989 section X 3 Pacemaker (~2007) Open Carpal Tunnel release 1983 LEFT 1978 RIGHT HERNIA REPAIR X 6 Excision, Lipoma RIGHT HIP Endometrial Biopsy NEG Dilation and curettage Cholecystectomy Breast, Mastectomy Bilateral w/axillary node dissection-right Family History Mother Essential hypertension Diabetes Personal history of malignant neoplasm colon Hyperlipidemia Father Diabetes Personal history of malignant neoplasm colon, skin Sister Hyperlipidemia Sister Myalgia and myositis Sister Personal history of malignant neoplasm ovarian Celiac disease Hyperlipidemia Depression Sister Polycythemia vera Hyperlipidemia Celiac disease Paternal Grandfather Personal history of malignant neoplasm Liver Alcohol abuse Maternal Grandmother Essential hypertension Personal history of malignant neoplasm pancreatic Paternal Grandmother Personal history of malignant neoplasm Leukemia Maternal Grandfather Heart disease Son Depression Son Depression Substance abuse Other Family history of colon cancer Social History Smoking/Tobacco Use Status: Never Smoking risk assessment performed?: Yes Alcohol Intake: never Drug use: Never Substance use type: does not use Housing: apartment What type of physical activity do you participate in: walking Duration: 15-30 minutes/day Frequency: 3-4 times per week Marie/Sikh: Confucianism Agree to transfusion: No Do you feel safe at home: Yes Do you feel safe in your relationship?: Yes
[2024-04-01 05:11] LABS: Bacteria Rare HPF (Negative); C & S Indicated? No; Crystals Negative HPF (Negative); Epithelial Cells Few HPF (Negative); Mucus Negative (Negative); WBC 0-2 HPF (0-5)
--- NOTE | 2024-04-01 05:27 | DI.VRAD_ITS ---
PROCEDURE INFORMATION: Exam: CT Head Without Contrast Exam date and time: 04/01/2024 3:46 AM Age: 73 years old Clinical indication: Other: Acute n/v TECHNIQUE: Imaging protocol: Computed tomography of the head without contrast. Radiation optimization: All CT scans at this facility use at least one of these dose optimization techniques: automated exposure control; mA and/or kV adjustment per patient size (includes targeted exams where dose is matched to clinical indication); or iterative reconstruction. COMPARISON: No relevant prior studies available. FINDINGS: Brain: Minimal chronic small-vessel ischemic change. No brain edema. No intracranial hemorrhage. Cerebral ventricles: No ventriculomegaly. Paranasal sinuses: Visualized sinuses are unremarkable. No fluid levels. Mastoid air cells: Unremarkable. Bones: Unremarkable. No acute fracture. Soft tissues: Unremarkable. IMPRESSION: No acute brain findings. Dictated and Authenticated by: Zack Curiel MD. Ordering:RUBY Solares MD
[2024-04-01 06:09] LABS: Troponin I < 50 ng/L (< or =60)
--- NOTE | 2024-04-01 06:28 | DI.VRAD_ITS ---
PROCEDURE INFORMATION: Exam: CT Abdomen And Pelvis With Contrast Exam date and time: 04/01/2024 3:48 AM Age: 73 years old Clinical indication: Prior surgery; Surgery date: 6+ months; Surgery type: C-sections, cholecystectomy, mastectomy and multiple hernia repair; Patient HX: Vomiting, chronic abdominal pain TECHNIQUE: Imaging protocol: Computed tomography of the abdomen and pelvis with contrast. Radiation optimization: All CT scans at this facility use at least one of these dose optimization techniques: automated exposure control; mA and/or kV adjustment per patient size (includes targeted exams where dose is matched to clinical indication); or iterative reconstruction. Contrast material: OMNIPAQUE 350; Contrast volume: 100 ml; Contrast route: INTRAVENOUS (IV); COMPARISON: CT ABDOMEN PELVIS W 10/11/2023 14:44 FINDINGS: Lower thorax: Bibasilar dependent atelectatic changes. A pacemaker is present. Liver: Normal. No mass. Gallbladder and bile ducts: Cholecystectomy. Pancreas: Normal. No ductal dilation. Spleen: Normal. No splenomegaly. Adrenal glands: Stable left adrenal mass likely representing a myelolipoma. Kidneys and ureters: Parapelvic cysts bilaterally. No hydronephrosis or hydroureter. Stomach and bowel: Postsurgical changes and eventration of the abdominal wall without interval change. No evidence of bowel obstruction. Prominent submucosal fat deposition in the colon is again noted which may reflect remote chronic inflammation. Appendix: Nonvisualized appendix. No evidence of appendicitis. Intraperitoneal space: No free fluid or free air. Vasculature: Atherosclerosis of the abdominal aorta without aneurysm or dissection. Lymph nodes: Unremarkable. No enlarged lymph nodes. Urinary bladder: Irregular bladder wall thickening, unchanged. Reproductive: Unremarkable as visualized. Bones/joints: Degenerative disc disease of the lumbar spine. No acute fracture. Soft tissues: Unremarkable. IMPRESSION: Stable eventration of the abdominal wall. No evidence of bowel obstruction. Multiple chronic findings as above. Dictated and Authenticated by: Royce Aguilar MD. Ordering:RUBY Solares MD
== END 2024-04-01 07:17 | disposition home or self-care (01) ==
PROVIDERS: Emergency Provider Student in an Organized Health Care Education/Training Program; PCP Physician Assistant
DX: R11.2 Nausea with vomiting, unspecified (principal); R42 Dizziness and giddiness; T38.3X5A Adverse effect of insulin and oral hypoglycemic [antidiabetic] drugs, initial encounter; E66.9 Obesity, unspecified; I10 Essential (primary) hypertension; E11.9 Type 2 diabetes mellitus without complications; E03.9 Hypothyroidism, unspecified; Z95.0 Presence of cardiac pacemaker; Y92.018 Other place in single-family (private) house as the place of occurrence of the external cause
CPT/HCPCS: 80053; 93005; 96361; 96374; 99285; 70450; 74177; 81003; 81015; 83605; 83735; 84439; 84443; 84484; 85025; 93010; 99284; J2405; J3490

== ENCOUNTER 2024-04-15 23:12 | Emergency (ER) | payer MEDICARE, SELFPAY ==
[2024-04-15 23:11] VITALS: BP 151/64; PULSE 80; RESP 16; TEMP 36; O2SAT 96
--- NOTE | 2024-04-15 23:15 | RT.EKG_ITS ---
APPROVED REPORT Exam: Resting ECG Reason for Exam: vomiting Patient Location: E HR:84 bpm ECG Measurements Heart Rate 84 AXIS CO 212 P 74 QRSd 106 QRS -38 QT 404 T 50 QTc 479 Conclusion Sinus rhythm...normal P axis, V-rate 60- 99 Borderline prolonged CO interval...CO >212, V-rate 50- 90 Left axis deviation...QRS axis (-30,-90) Physician: no stemi
[2024-04-15 23:18] VITALS: PULSE 80; RESP 16; TEMP 36; O2SAT 96
--- NOTE | 2024-04-15 23:38 | ED.GENADUL_ITS ---
Discharge Plan Disposition Patient Disposition: Home Condition: Good Discharge Details Clinical Impression: Nausea & vomiting, Dehydration, Acute hypokalemia, Hypomagnesemia Primary Care Provider: Silvio Verdugo ED Provider: Ritchie Walters Home Meds and New Rx's Prescriptions: No Action rosuvastatin 5 mg tablet 5 mg PO DAILY levothyroxine 125 mcg tablet 125 mcg PO DAILY Qty: 90 4RF spironolactone 50 mg tablet 100 mg PO DAILY cyanocobalamin (vitamin B-12) 1,000 mcg capsule 1,000 mcg PO DAILY ondansetron 4 mg tablet,disintegrating 4 mg PO Q8H PRNQty: 10 0RF Discharge Instructions Instructions: Dehydration (ED), Hypokalemia (ED), Hypomagnesemia (ED) Additional Instructions: At this time your CAT scan has returned normal, your potassium and magnesium were low but have been replaced. Please transition to your colonoscopy appointment here at the hospital. If you notice any worsening of your symptoms, or any new symptoms such as vomiting, diarrhea, fever, chills, shortness of breath, chest pain, numbness, weakness, or fainting , please return immediately to the emergency department for reevaluation. Please follow up with your primary care provider as soon as possible for reassessment and reevaluation. As always, it was a pleasure participating in your medical care today. Referrals: Silvio Verdugo [Primary Care Provider] - [facility] General Date/Time Provider Initiated Documentation: 04/15/24 23:15 . [facility] Narrative: This is a pleasant 73-year-old female with a past medical history of Sabianist affiliation, hypertension, diabetes, hypothyroidism, large abdominal hernia, orthopedic surgeries, pacemaker, presents today for nausea and vomiting. Patient is scheduled to have a colonoscopy tomorrow, and she began her colonoscopy prep this morning. She completed the prep, then noticed some significant dizziness and some of her chronic vertiginous symptoms came up. She felt slightly dizzy and nauseous but initially had no vomiting. Later this evening when she totally completed her prep she began to get more nauseous and began vomiting. She took Zofran but threw this up. She denies any blood in her vomitus. She admits to chronic generalized abdominal tenderness secondary to her hernia but no new pain. She obviously did have diarrhea with the preparation, but denies any blood. She states that she feels dizzy and the room is spinning slightly, but denies any visual changes otherwise. No other complaints at this time. Related Data Home Medications Medication Instructions Recorded Confirmed levothyroxine 125 mcg tablet 125 mcg PO DAILY #90 tab-caps 02/03/21 04/15/24 rosuvastatin 5 mg tablet 5 mg PO DAILY 08/01/22 04/15/24 cyanocobalamin (vitamin B-12) 1,000 mcg PO DAILY 10/10/23 04/15/24 1,000 mcg capsule spironolactone 50 mg tablet 100 mg PO DAILY 10/10/23 04/15/24 ondansetron 4 mg disintegrating 4 mg PO Q8H PRN #10 tabs 04/01/24 04/15/24 tablet Previous Rx's Medication Instructions Recorded levothyroxine 125 mcg tablet 125 mcg PO DAILY #90 tab-caps 02/03/21 ondansetron 4 mg disintegrating 4 mg PO Q8H PRN #10 tabs 04/01/24 tablet Allergies Allergy/AdvReac Type Severity Reaction Status Date / Time Penicillins Allergy Severe Skin Rash Verified 04/15/24 23:15 ciprofloxacin [From Cipro] Allergy Intermediate Skin Rash Verified 04/15/24 23:15 Latex, Natural Rubber Allergy Intermediate Skin Rash Verified 04/15/24 23:15 nickel Allergy Intermediate SWELLING Verified 04/15/24 23:15 furosemide Allergy Unknown Other (See Verified 04/15/24 23:15 Comment) diphenhydramine AdvReac Severe RESTLESSNES Verified 04/15/24 23:15 S ropinirole HCl [From Requip] AdvReac Severe Visual Verified 04/15/24 23:15 Disturbances duloxetine AdvReac Intermediate DIARRHEA Verified 04/15/24 23:15 lamotrigine AdvReac Intermediate NAUSEA/VOMI Verified 04/15/24 23:15 TING lisinopril AdvReac Intermediate COUGH Verified 04/15/24 23:15 codeine AdvReac Unknown WIRED Verified 04/15/24 23:15 metoclopramide AdvReac Unknown hullucinati Verified 04/15/24 23:15 ons aspertame AdvReac Mild Skin Rash Uncoded 04/15/24 23:15 General Stated Complaint: Nausea/Vomit/Diar JACQUI: 3 Review of Systems All systems reviewed & are unremarkable except as noted in HPI and below Exam Narrative Exam Narrative: 1.Const: Well-nourished, Well-developed, appearing stated age 2.Eyes: PERRL, no conjunctival injection, and symmetrical lids. Unidirectional leftward horizontal fatigable nystagmus. No rotatory or vertical nystagmus. 3.ENT: Atraumatic external nose and ears. Notably dry MM. Neck: Symmetric, trachea midline, No thyromegaly. 4.CVS: +S1/S2, No murmurs or gallops. Peripheral pulses 2+ and equal in all extremities. Brisk capillary refill in all extremities. 5.RESP: Unlabored respiratory effort. Clear to auscultation bilaterally. No wheezes rales or rhonchi 6.GI: Soft, mildly distended, hernia is palpable and slightly tender. No erythema or warmth. Generalized mild tenderness throughout. 7.MSK: Normocephalic/Atraumatic, Extremities w/o deformity or ttp No cyanosis or clubbing, Normal movement of all extremities 8.Skin: Warm, Dry. No rashes or lesions. 9.Neuro: store hand II-XII grossly intact. Sensation grossly intact, no focal neurologic deficits. 10.Psych: (AAO) x3. Appropriate mood and affect Course Vital Signs Vital signs: Vital Signs Temperature 36.0 C L 04/15/24 23:11 Pulse 80 04/15/24 23:11 Respiratory Rate 16 04/15/24 23:11 Blood Pressure 151/64 H 04/15/24 23:11 Pulse Oximetry 96 04/15/24 23:11 Temperature 36.0 C L 04/15/24 23:18 Temperature Source Skin 04/15/24 23:18 Pulse 80 04/15/24 23:18 Respiratory Rate 16 04/15/24 23:18 Respiratory Effort Normal, Non-Labored 04/15/24 23:14 Blood Pressure 151/64 H 04/15/24 23:11 Pulse Oximetry 96 04/15/24 23:18 Oxygen Delivery Method Room Air 04/15/24 23:18 Oxygen Flow Rate 0 04/15/24 23:11 Pain Level 8 04/15/24 23:18 Medical Decision Making This is a pleasant 73-year-old female with a past medical history of Sabianist affiliation, hypertension, diabetes, hypothyroidism, large abdominal hernia, orthopedic surgeries, pacemaker, presents today for nausea and vomiting. Patient is scheduled to have a colonoscopy tomorrow, and she began her colonoscopy prep this morning. She completed the prep, then noticed some significant dizziness and some of her chronic vertiginous symptoms came up. She felt slightly dizzy and nauseous but initially had no vomiting. Later this evening when she totally completed her prep she began to get more nauseous and began vomiting. She took Zofran but threw this up. She denies any blood in her vomitus. She admits to chronic generalized abdominal tenderness secondary to her hernia but no new pain. She obviously did have diarrhea with the preparation, but denies any blood. She states that she feels dizzy and the room is spinning slightly, but denies any visual changes otherwise. No other complaints at this time. Exam demonstrates dry mucous membranes, generalized abdominal achiness/tenderness, with mild chronic tenderness over her chronic hernia. She also does have horizontal fatigable unidirectional left-sided nystagmus. No vertical or rotatory nystagmus. No other focal neurologic deficits. Symptoms appear inconsistent with cerebellar stroke at this time, concern for peripheral vertigo, electrolyte abnormality and dehydration secondary to preparatory solution. Obstruction/small bowel obstruction is also of concern versus hernia complication. We will rehydrate, check electrolytes, get a CT scan of the abdomen for further assessment, monitor closely and reassess. 2 AM Laboratory workup has returned, minimal white count, electrolytes relatively stable aside for slightly low potassium at 3.2. She will be given 20 mEq of IV potassium. Magnesium was also low at 1.4, patient has been given 2 g of IV magnesium. Anion gap minimally elevated at 14, bilirubin slightly elevated at 1.2. CT scan shows no evidence of acute process obstruction or other acute etiology. On reassessment patient is feeling much better. Her dizziness has resolved, her nausea has resolved, and she feels well. Her colonoscopy is scheduled for 8:30 in the morning. She still has an hour or 2 to go for the IV potassium. I discussed options of discharge versus observation here until procedure, the patient has elected to stay here. Patient will be monitored here throughout the evening with disposition in the morning for colonoscopy. 7 AM Patient remains hemodynamically stable. No complications throughout the evening. Patient feels well. Patient will be transition to her colonoscopy. I have extensively reviewed the treatment plan and discharge instructions with the patient. I have addressed all patient concerns at this time. The patient was made aware of what symptoms to monitor for that would warrant a return to the emergency department. Discussed the plan with the patient, they demonstrate verbal understanding and agreement with our assessment and plan at this time. The documentation in this chart was dictated using [employer] dictation software. Please excuse any dictation errors. FINDINGS: Liver: Normal. No mass. Gallbladder and bile ducts: Gallbladder is surgically absent. Pancreas: Normal. No ductal dilation. Spleen: Normal. No splenomegaly. Adrenal glands: Right adrenal gland appears normal. Kidneys and ureters: Stable small parapelvic cysts in both kidneys. Kidneys are otherwise unremarkable. No urolithiasis. Stomach and bowel: Unremarkable. No obstruction. No mucosal thickening. Appendix: No evidence of appendicitis. Intraperitoneal space: Unremarkable. No free air. No significant fluid collection. Vasculature: Mild scattered atherosclerotic calcification of the aorta. No evidence of aneurysm. Lymph nodes: Unremarkable. No enlarged lymph nodes. Urinary bladder: Unremarkable as visualized. Reproductive: Unremarkable as visualized. Bones/joints: Moderate degenerative changes throughout the lower spine. No vertebral body compression or acute fracture Soft tissues: Evidence of prior ventral hernia repair. Significant diastasis recti again noted. Stable mixed density 3.6 cm left adrenal mass with partial fat attenuation suggesting myelolipoma or large adenoma. IMPRESSION: No definite acute abnormality. Specifically, no evidence of bowel obstruction. Stable chronic findings as noted. Thank you for allowing us to participate in the care of your patient. Dictated and Authenticated by: Jorge A Tao MD 04/16/2024 12:35 AM Eastern Time ([place] & [place]) Quality:SDOH Health Related Social Needs: No Data to Display PFSH All Active Problems (Updated 04/16/24 @ 02:18 by Ritchie Waltesr DO) Hypomagnesemia (Acute) Acute hypokalemia (Acute) Dehydration (Acute) Nausea & vomiting (Acute) Vomiting (Acute) Medication reaction (Acute) Light-headed (Acute) Class 3 drug-induced obesity with serious comorbidity and body mass index (BMI) of 40.0 to 44.9 in adult (Acute) Impairment of speech discrimination (Acute) Shortness of breath (Acute) Conductive hearing loss, external ear (Acute) Impacted cerumen, bilateral (Acute) Diarrhea (Acute) Edema, lower extremity (Acute) Pruritic condition (Acute) Palpitation (Acute) Encounter for postoperative wound check (Acute) Preoperative cardiovascular examination (Acute) Interstitial lung disease (Acute) Chronic abdominal pain (Acute) Tinnitus, bilateral (Acute) Sensorineural hearing loss of both ears (Acute) Elevated hemoglobin A1c (Acute) Family history of colon cancer (Chronic) Syncope (Chronic 10/10/07) Abnormal chest CT (Chronic) Sick sinus syndrome (Chronic) Vitamin D deficiency (Chronic 10/29/14) Ventral hernia without obstruction or gangrene (Chronic) recurrent; Repair; infected mesh 2001 and 2002 chronic abdominal pain Restless legs (Chronic) Pancreatic cyst (Chronic 08/19/15) [facility] GI eval 08/25 EUS ?IPMN, FNA non diagnostic Obstructive sleep apnea syndrome (Chronic) SLEEP STUDY [facility] 03/20 2013 trying oral apparatus Nausea and vomiting (Chronic) Delayed gastric emptying; 07/13-NL Ba swallow; 01/12-EGD=+HH; 01/14-UGI + GERD; 07/1720-LEC-ggmsexe gastropathy 08/16 [facility] delayed gastric emptying due to vertical banded gastroplasty (stomach stapling for obesity) 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) repeat CT at [facility] due Jul 2016 Morbid obesity (Chronic) S/P stomach stapling Malignant neoplasm of female breast (Chronic 03/13/13) Right breast bx at [facility]-+infiltration ductal Ca; + Lymph node; bilateral mastectomy + axillary node dissection Lymphedema of right arm (Chronic 07/11/17) Low back pain (Chronic) Knee pain (Chronic) 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) Impaired fasting glucose (Chronic 10/08/08) Hypothyroidism (Chronic) Hyperlipidemia (Chronic) Hydronephrosis, left (Chronic 08/19/15) incidental finding on abd CT [facility] (f/u [facility] urology) Gastroesophageal reflux disease with esophagitis (Chronic) gastric emptying delay; erosive gastropathy hiatal hernia 08/23/15 [facility]; UPPER EUS Essential hypertension (Chronic 10/22/13) Disorder of vitamin B12 (Chronic) Depressive disorder (Chronic) Dental caries (Chronic 03/09/16) Conductive hearing loss, external ear (Chronic 07/12/16) Cardiac pacemaker in situ (Chronic) Medtronic dual lead pacemaker Original implant 03/15/2008 @ [facility] for syncope/SND Adapta L [id number] RA Medtronic [id number] 03/15/2008 RV Medtronic [id number] 03/15/200808/2020 - Battery depleted. Above generator/pacer replaced - see [facility] for details of pacer. Medical History Refusal of blood transfusions as patient is Sabianist Swelling of surgical site Pacemaker battery depletion Hyperpigmentation of oral cavity (09/08/13) Lipoma of buttock (03/03/15) Postmenopausal bleeding (02/08/09) Oral mucositis (07/12/16) Impacted cerumen, bilateral (07/12/16) Surgical History History of section Status post carpal tunnel release Status post cholecystectomy Status post hernia repair Status post total knee replacement Replacement of total knee joint 2007 RIGHT 2011 LEFT Stomach Stapled 1989 section X 3 Pacemaker (~2007) Open Carpal Tunnel release 1982 LEFT 1978 RIGHT HERNIA REPAIR X 6 Excision, Lipoma RIGHT HIP Endometrial Biopsy NEG Dilation and curettage Cholecystectomy Breast, Mastectomy Bilateral w/axillary node dissection-right Family History Mother Essential hypertension Diabetes Personal history of malignant neoplasm colon Hyperlipidemia Father Diabetes Personal history of malignant neoplasm colon, skin Sister Hyperlipidemia Sister Myalgia and myositis Sister Personal history of malignant neoplasm ovarian Celiac disease Hyperlipidemia Depression Sister Polycythemia vera Hyperlipidemia Celiac disease Paternal Grandfather Personal history of malignant neoplasm Liver Alcohol abuse Maternal Grandmother Essential hypertension Personal history of malignant neoplasm pancreatic Paternal Grandmother Personal history of malignant neoplasm Leukemia Maternal Grandfather Heart disease Son Depression Son Depression Substance abuse Other Family history of colon cancer Social History Smoking/Tobacco Use Status: Never Smoking risk assessment performed?: Yes Alcohol Intake: never Drug use: Never Substance use type: does not use Housing: apartment What type of physical activity do you participate in: walking Duration: 15-30 minutes/day Frequency: 3-4 times per week Marie/Judaism: Sabianist Agree to transfusion: No Do you feel safe at home: Yes Do you feel safe in your relationship?: Yes Additional Social history: lives alone
[2024-04-15] MEDS: Metoclopramide 10 MG/2 ML VIAL 20 MG IVP (23:44)
[2024-04-15] MEDS: Lactated Ringers 1,000 ML 1000 ML IV (23:44)
[2024-04-15] MEDS: Meclizine 25 MG TAB PO (23:44)
[2024-04-15 23:51] LABS: Abs Immature Grans 0.05 10^3/uL (0.0-0.06); Absolute Eosinophil Count 0.06 10^3/uL (0.0-0.7); Absolute Lymphocyte Count 1.23 10^3/uL (1.2-3.4); Absolute Monocyte Count 0.61 10^3/uL (0.1-0.8); Basophils % 0.3 %; Eosinophils % 0.5 %; HGB 15.4 g/dL (11.2-15.7); Immature Grans % 0.4 %; Lymphocytes % 10.6 %; MCH 31.5 pg (27.0-33.0); MCV 90 fL (80-95); MPV 9.8 fL (8.0-11.0); Monocytes % 5.3 %; Neutrophils % 82.9 %; Platelet Count 181 10^3/uL (130-400); RBC 4.89 10^6/uL (3.93-5.22); RDW-SD 39.9 fL; WBC 11.59 10^3/uL (4.4-10.8)
[2024-04-15 23:52] LABS: Absolute Basophil Count 0.03 10^3/uL (0.0-0.2); Absolute Neutrophil Count 9.61 10^3/uL (1.2-6.7)
[2024-04-16] VITALS (23 sets, daily range): PULSE 75–85; RESP 17–20; O2SAT 89–94
--- NOTE | 2024-04-16 | DI.CT_ITS ---
Exam(s) CT ABDOMEN PELVIS WO EXAM: CT ABDOMEN PELVIS WO CLINICAL HISTORY: vomiting, known hernia, r/o obstruction. TECHNIQUE: Imaging Protocol: Axial computed tomography images with coronal and sagittal reformatted images were created and reviewed CONTRAST MATERIAL: Intravenous: none Oral: None COMPARISON: CT CT ABDOMEN PELVIS W from 04/01/2024 FINDINGS: VISUALIZED LUNG BASES: Benign-appearing increased markings are noted in the left lung base posterior basal segment left lower lobe. No pleural effusions. This finding is unchanged from 04/01/2024.. C ardiac pacemaker wires. ABDOMEN: And evidence of prior anterior abdominal hernia repair mesh inferiorly. Again noted is evidence of previous gastric surgery. There is no ascites. Again noted is diastasis recti LIVER: There are no obvious focal hepatic lesions evident of this noninfused study. GALLBLADDER/BILIARY: Gallbladder again noted be surgically absent CBD is not dilated. PANCREAS: No evidence of pancreatic mass nor dilatation of the pancreatic duct. SPLEEN: Spleen is not enlarged. No obvious intrasplenic lesions. ADRENALS: Previously described fat containing mass in the left adrenal gland is unchanged and probabl y a myelolipoma. Right adrenal gland is unremarkable. KIDNEYS:Parapelvic cysts again seen in both kidneys. No solid renal masses. No calculi nor hydroneph rosis. . ABDOMINAL AORTA: Abdominal aorta is not enlarged. LYMPH NODES: There is no retroperitoneal nor paraaortic adenopathy. GI: There is no evidence of bowel obstruction, free air, nor abscess. Previously described fat halo sign in the colon is again noted. PELVIS: LYMPH NODES: There is no intrapelvic nor inguinal adenopathy. GI: No evidence of appendicitis.No evidence of sigmoid diverticulitis. URINARY BLADDER: No calculi nor obvious masses evident REPRODUCTIVE: Uterus and adnexal regions unremarkable. Calcification in the left ovary again noted. Otherwise unremarkable appearing ovaries. There are no extraovarian adnexal masses and no free flui d in the pelvis. OSSEOUS: No significant osseous lesions. No fractures. Findings again noted of increased density in both sides of both sacroiliac joints consistent with sac roiliitis. There is no obvious ankylosis of the SI joints at this time. IMPRESSION: 1. No obvious acute findings. No evidence of bowel obstruction, free air, nor abscess. 2. The previously described fat halo sign in the colon appears less prominent on the prior study of 0 04/01/2024. 3. Evidence of previous gastric surgery again noted. Also cardiac pacemaker. RADIATION DOSE DELIVERED: 1,281.07mGy.cm Total DLP DATA REPOSITORY: All CT scans at this facility are submitted to the National Radiology Data Registry (NRDR) Dose Index Registry (DIR) with the [employer] (ACR). RADIATION OPTIMIZATION: All CT scans at this facility use at least one of these dose optimization te chniques: automated exposure control; mA and/or kV adjustment per patient size (includes targeted exa ms where dose is matched to clinical indication); or iterative reconstruction.
[2024-04-16 00:02] LABS: Magnesium 1.4 mg/dL (1.8-2.4)
[2024-04-16 00:08] LABS: ALT 37 U/L (14-59); AST 25 U/L (15-37); Albumin 4.3 g/dL (3.4-5.0); Alkaline Phosphatase 91 U/L (46-116); Anion Gap 14.6 mmol/L (3-11); BUN 15 mg/dL (7-18); Bilirubin, Total 1.2 mg/dL (0.2-1.0); CO2 21.4 mmol/L (21.0-32.0); Calcium 9.1 mg/dL (8.5-10.1); Chloride 97 mmol/L (98-107); Estimated GFR 59.49 (mL/min/1.73m2); Glucose 192 mg/dL (74-106); Lipase 44 U/L (16-77); Potassium 3.2 mmol/L (3.5-5.1); Sodium 133 mmol/L (136-145); Total Protein 8.3 g/dL (6.4-8.2); Troponin I < 50 ng/L (< or =60)
--- NOTE | 2024-04-16 00:36 | DI.VRAD_ITS ---
PROCEDURE INFORMATION: Exam: CT Abdomen And Pelvis Without Contrast Exam date and time: 04/16/2024 12:08 AM Age: 73 years old Clinical indication: Vomiting; Additional info: Vomiting, known hernia, R/O obstruction TECHNIQUE: Imaging protocol: Computed tomography of the abdomen and pelvis without contrast. COMPARISON: CT ABDOMEN PELVIS W 04/01/2024 3:48 AM FINDINGS: Liver: Normal. No mass. Gallbladder and bile ducts: Gallbladder is surgically absent. Pancreas: Normal. No ductal dilation. Spleen: Normal. No splenomegaly. Adrenal glands: Right adrenal gland appears normal. Kidneys and ureters: Stable small parapelvic cysts in both kidneys. Kidneys are otherwise unremarkable. No urolithiasis. Stomach and bowel: Unremarkable. No obstruction. No mucosal thickening. Appendix: No evidence of appendicitis. Intraperitoneal space: Unremarkable. No free air. No significant fluid collection. Vasculature: Mild scattered atherosclerotic calcification of the aorta. No evidence of aneurysm. Lymph nodes: Unremarkable. No enlarged lymph nodes. Urinary bladder: Unremarkable as visualized. Reproductive: Unremarkable as visualized. Bones/joints: Moderate degenerative changes throughout the lower spine. No vertebral body compression or acute fracture. Soft tissues: Evidence of prior ventral hernia repair. Significant diastasis recti again noted. Stable mixed density 3.6 cm left adrenal mass with partial fat attenuation suggesting myelolipoma or large adenoma. IMPRESSION: No definite acute abnormality. Specifically, no evidence of bowel obstruction. Stable chronic findings as noted. Dictated and Authenticated by: Jorge A Tao MD. Ordering:MADINA Dugan MD
[2024-04-16] MEDS: MAGNESIUM SULFATE 2 GM/50 ML BAG IVINF (01:00)
[2024-04-16] MEDS: Normal Saline 500 ML IV (01:07)
[2024-04-16] MEDS: POTASSIUM CHLORIDE 20 MEQ/100 ML BAG 50 MEQ IVINF (01:07)
== END 2024-04-16 07:34 | disposition home or self-care (01) ==
PROVIDERS: Emergency Provider Student in an Organized Health Care Education/Training Program; PCP Physician Assistant
DX: R11.2 Nausea with vomiting, unspecified (principal); E86.0 Dehydration; E87.6 Hypokalemia; E83.42 Hypomagnesemia; I10 Essential (primary) hypertension; E11.9 Type 2 diabetes mellitus without complications; E03.9 Hypothyroidism, unspecified; Z98.84 Bariatric surgery status; Z95.0 Presence of cardiac pacemaker
CPT/HCPCS: 36415; 80053; 83690; 93005; 96361; 96365; 96366; 96368; 99284; 74176; 83735; 84484; 85025; 93010; J2765; J3475; J3480

== ENCOUNTER 2024-04-16 07:54 | Day surgery (SDC) | payer MEDICARE, SELFPAY ==
[2024-04-16 07:45] VITALS: BP 116/74; PULSE 82; RESP 16; TEMP 36.3; O2SAT 96
--- NOTE | 2024-04-16 09:04 | ANES.PREOP_ITS ---
General Info Date of Service Date Performed: 04/16/24 Height: 4 ft 11 in Weight: 100.244 kg Body Mass Index (BMI): 44.6 Surgical Procedure: Operation Date: 04/16/24 09:35 Proposed Procedure Side Surgeon p Colonoscopy/Gastroscopy Kyle Delgado MD Meds Allergies and Home Medications Allergies Allergy/AdvReac Type Severity Reaction Status Date / Time Penicillins Allergy Severe Skin Rash Verified 04/16/24 08:51 ciprofloxacin [From Cipro] Allergy Intermediate Skin Rash Verified 04/16/24 08:51 Latex, Natural Rubber Allergy Intermediate Skin Rash Verified 04/16/24 08:51 nickel Allergy Intermediate SWELLING Verified 04/16/24 08:51 furosemide Allergy Unknown Other (See Verified 04/16/24 08:51 Comment) diphenhydramine AdvReac Severe RESTLESSNES Verified 04/16/24 08:51 S ropinirole HCl [From Requip] AdvReac Severe Visual Verified 04/16/24 08:51 Disturbances duloxetine AdvReac Intermediate DIARRHEA Verified 04/16/24 08:51 lamotrigine AdvReac Intermediate NAUSEA/VOMI Verified 04/16/24 08:51 TING lisinopril AdvReac Intermediate COUGH Verified 04/16/24 08:51 codeine AdvReac Unknown WIRED Verified 04/16/24 08:51 metoclopramide AdvReac Unknown hullucinati Verified 04/16/24 08:51 ons aspertame AdvReac Mild Skin Rash Uncoded 04/16/24 08:51 Home Medication Medication Instructions Recorded levothyroxine 125 mcg tablet 125 mcg PO DAILY #90 tab-caps 02/03/21 rosuvastatin 5 mg tablet 5 mg PO DAILY 08/01/22 cyanocobalamin (vitamin B-12) 1,000 mcg PO DAILY 10/10/23 1,000 mcg capsule spironolactone 50 mg tablet 100 mg PO DAILY 10/10/23 ondansetron 4 mg disintegrating 4 mg PO Q8H PRN #10 tabs 04/01/24 tablet Current Visit Medications: Current Medications Generic Name Dose Route Start Last Admin Trade Name Freq PRN Reason Stop Dose Admin Ringer's Solution 1,000 mls @ 80 mls/hr 04/16/24 06:00 IV 04/16/24 23:59 INFUSION LYNN IV Miscellaneous Supplies 1 each 04/16/24 06:00 Iv Access IV 04/16/24 23:59 DIRECTED LYNN Sodium Chloride 0 ml 04/16/24 06:00 Normal Saline Flush 10 Ml Syr IV 04/16/24 23:59 PRN PRN Sodium Chloride 0 ml 04/16/24 06:00 Normal Saline 10 Ml Vial IJ 04/16/24 23:59 DIRECTED PRN Sterile Water 0 ml 04/16/24 06:00 Water,Injection,Sterile 10 Ml Vial IJ 04/16/24 23:59 DIRECTED PRN PFSH Active Problems Active Problems: Problem Status Onset Code Hypomagnesemia E83.42 Acute hypokalemia E87.6 Dehydration E86.0 Nausea & vomiting R11.2 Vomiting R11.10 Medication reaction T50.905A Light-headed R42 Class 3 drug-induced obesity with serious comorbidity and body mass index (BMI) of 40.0 to 44.9 in adult E66.1, Z68.41 Impairment of speech discrimination H93.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 Shortness of breath R06.02 Conductive hearing loss, external ear H90.2 Impacted cerumen, bilateral H61.23 Diarrhea R19.7 Edema, lower extremity R60.0 Pruritic condition L29.9 Palpitation R00.2 Encounter for postoperative wound check Z48.89 Preoperative cardiovascular examination Z01.810 Interstitial lung disease J84.9 Chronic abdominal pain R10.9, G89.29 Tinnitus, bilateral H93.13 Sensorineural hearing loss of both ears H90.3 Elevated hemoglobin A1c R73.09 Family history of colon cancer Z80.0 Syncope 10/10/[address] R93.89 Sick sinus syndrome I49.5 Vitamin D deficiency 10/29/14 E55.9 Ventral hernia without obstruction or gangrene K43.9 Restless legs G25.81 Pancreatic cyst 08/19/15 K86.2 Obstructive sleep apnea syndrome G47.33 Nausea and vomiting R11.2 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 D17.79 Morbid obesity E66.01 Malignant neoplasm of female breast 03/13/13 C50.919 Lymphedema of right arm 07/11/17 I89.0 Low back pain M54.5 Knee pain M25.569 Impaired fasting glucose 10/08/08 R73.01 Hypothyroidism E03.9 Hyperlipidemia E78.5 Hydronephrosis, left 08/19/15 N13.30 Gastroesophageal reflux disease with esophagitis K21.0 Essential hypertension 10/22/13 I10 Disorder of vitamin B12 E53.8 Depressive disorder F32.9 Dental caries 03/09/16 K02.9 Conductive hearing loss, external ear 07/12/16 H90.2 Cardiac pacemaker in situ Z95.0 Medical History Medical History Refusal of blood transfusions as patient is Jainism Swelling of surgical site Pacemaker battery depletion Hyperpigmentation of oral cavity (09/08/13) Lipoma of buttock (03/03/15) Postmenopausal bleeding (02/08/09) Oral mucositis (07/12/16) Impacted cerumen, bilateral (07/12/16) Medical History Comments:: Mom and sister delayed emergence Surgical History Surgical History History of section Status post carpal tunnel release Status post cholecystectomy Status post hernia repair Status post total knee replacement Replacement of total knee joint 2007 RIGHT 2011 LEFT Stomach Stapled 1989 section X 3 Pacemaker (~2007) Open Carpal Tunnel release 1983 LEFT 1978 RIGHT HERNIA REPAIR X 6 Excision, Lipoma RIGHT HIP Endometrial Biopsy NEG Dilation and curettage Cholecystectomy Breast, Mastectomy Bilateral w/axillary node dissection-right Tobacco Smoking/Tobacco Use Status: Never Passive smoking exposure: Yes Alcohol Alcohol Intake: never Substance Use Substance use: Never Substance use type: does not use Vital Signs and Lab Results Vital Signs Most Recent Vital Signs in EMR: Most Recent Vital Signs Temp Pulse Resp BP Pulse Ox 36.3 C L 82 16 116/74 96 04/16/24 07:45 04/16/24 07:45 04/16/24 07:45 04/16/24 07:45 04/16/24 07:45 Lab Results Blood Type / Crossmatch: No Data to Display Complete Blood Count: White Blood Count 11.59 10^3/uL (4.4-10.8) H 04/15/24 23:40 Red Blood Count 4.89 10^6/uL (3.93-5.22) 04/15/24 23:40 Hemoglobin 15.4 g/dL (11.2-15.7) 04/15/24 23:40 Hematocrit 44.0 % (36.0-46.0) 04/15/24 23:40 Platelet Count 181 10^3/uL (130-400) 04/15/24 23:40 Venous Blood Lactate 1.8 mmol/L (0.6-1.4) H 04/01/24 04:38 Complete Metabolic Panel: Sodium 133 mmol/L (136-145) L 04/15/24 23:40 Potassium 3.2 mmol/L (3.5-5.1) L 04/15/24 23:40 Chloride 97 mmol/L (98-107) L 04/15/24 23:40 Carbon Dioxide 21.4 mmol/L (21.0-32.0) 04/15/24 23:40 BUN 15 mg/dL (7-18) 04/15/24 23:40 Creatinine 1.0 mg/dL (0.55-1.02) 04/15/24 23:40 Est GFR (CKD-EPI 2020) 59.49 (mL/min/1.73m2) 04/15/24 23:40 Magnesium 1.4 mg/dL (1.8-2.4) L 04/15/24 23:40 Calcium 9.1 mg/dL (8.5-10.1) 04/15/24 23:40 Albumin 4.3 g/dL (3.4-5.0) 04/15/24 23:40 Glucose 192 mg/dL (74-106) H 04/15/24 23:40 Liver Function Panel: Alanine Aminotransferase (ALT/SGPT) 37 U/L (14-59) 04/15/24 23: 40 Aspartate Amino Transf (AST/SGOT) 25 U/L (15-37) 04/15/24 23:40 Coagulation Panel: No Data to Display Cardiac Panel: Troponin I < 50 ng/L (< or =60) 04/15/24 Arterial Blood Gas: No Data to Display Venous Blood Gas: No Data to Display Pancreas Panel: Lipase 44 U/L (16-77) 04/15/24 23:40 Thyroid Panel: Thyroid Stimulating Hormone (TSH) 0.29 uIU/mL (0.36-3.74) L 04/01/24 02:55 Infectious Disease: No Data to Display Blood Cultures: No Data to Display Toxicology Panel: No Data to Display Imaging and Studies Imaging and Studies Study information below may be from another EMR and interpreted by another provider. Please see original notes in EMR for more complete details. EKG Summary: DATE/TIME OF SERVICE: 04/15/242320 : 1950 PERFORMING LOCATION: ER APPROVED REPORT Exam: Resting ECG Reason for Exam: vomiting Patient Location: E HR:84 bpm ECG Measurements Heart Rate 84 AXIS CO 212 P 74 QRSd 106 QRS -38 QT 404 T50 QTc 479 Conclusion Sinus rhythm...normal P axis, V-rate 60- 99 Borderline prolonged CO interval...CO >212, V-rate 50- 90 Left axis deviation...QRS axis (-30,-90) Stress Test Summary: 05/2020: Stress ECG Conclusion 1. The resting electrocardiogram was within normal limits 2. Patient exercised on the Ru protocol and completed a workload of 3.56 METS. This demonstrates poor exercise tolerance. 3. Rapid heart rate increase with activity suggests deconditioning. The patient did achieve 91% of predicted heart rate for age 4. Normal blood pressure response to exercise 5. Electrocardiographically the test was negative for myocardial ischemia 6. There were no significant dysrhythmias Echocardiogram Summary: Date of Exam: 09/25/22 Sex: F Admission Date: 09/25/22 : 1950 Age: 71 APPROVED REPORT EXAM: Comprehensive 2D, Doppler, and color-flow Echocardiogram Patient Location: Out-Patient Painter Sign Maintenance: Sabrina Sanchez RDCS (AE) Indications: Evaluate LV and RV function, SOB, Pacemaker Other Information Study Quality: Adequate. Technically limited study due to body habitus, inability to position patient exam done supine. Conclusion Normal left ventricular wall thickness and chamber size. Estimated ejection fraction is 60 to 65%. Wall motion is normal Normal right ventricular size and systolic function Both atria are normal in size Device lead noted in the right heart Aortic valve is trileaflet and sclerotic without stenosis or regurgitation Normal tricuspid valve with moderate regurgitation. Estimated right ventricular systolic pressure is 28 mmHg Dilated ascending aorta measuring 4.05 cm Pulmonary Function Summary: DATE OF ADMIT: 02/04/18 : 1950 INTERPRETATION SPIROMETRY: Spirometry shows no evidence of obstructive airways disease. No bronchodilator response. LUNG VOLUMES: Lung volumes show no evidence of restriction. DIFFUSION CAPACITY: Mildly elevated. AIRWAY RESISTANCE: Elevated. IMPRESSION: Isolated elevation in diffusion capacity. This can be seen in early asthma. This is further substantiated by mild elevation in airways resi stance. Therefore, if the diagnosis of asthma is suspected, proceeding with Methacholine challenge testing may prove to be useful. Anesthesia Assessment and Plan Anesthesia History Personal History: No History of Anesthesia Complications Family History: Other Exercise Tolerance Exercise Tolerance: Metabolic Equivalents>4 Pertinent Negatives Pertinent Negatives: No Symptoms of GERD and No History of CVA/TIA Cardiac & Pulmonary Exam Cardiac Exam: Normal S1/S2 Heart Sounds Pulmonary Exam: Clear Bilateral Breath Sounds Implantable Cardiac Device Does patient have a Pacemaker or an ICD?: Yes Device Youth Accommodation Support Worker:: [employer] Reason for Placement:: SSS/Syncope & Collapse Date of Last Device Interrogation:: 02/17/24 Airway Exam Known Difficult Airway: No Mallampati Class: 2 Mouth Opening: Normal (> 3cm) Thyromental Distance: Less than 3 cm Neck Range of Motion: Full ROM Neck Circumference: Normal Teeth Condition: Removable Dentures/Plates Upper ASA Classification ASA Score: ASA 3 Emergency Case?: No NPO Status NPO Status: NPO Clears >2 hours, Solids >8 hours Anesthesia Plan Resuscitation Status: Full Code Anesthesia Technique: General Anesthesia Airway Planned: Natural Airway Monitors Used: Standard Monitors
[2024-04-16 09:07] VITALS: BMI 44.6
[2024-04-16] MEDS: Lactated Ringers 1,000 ML 80 ML IV (09:07)
[2024-04-16] MEDS: Normal Saline Flush 10 ML SYR IV (09:08)
--- NOTE | 2024-04-16 09:21 | W.SURGCON ---
Date of service: 04/16/24 Time of Service: 09:22 Assessment and Plan Assessment and plan (1) Family history of colon cancer: Status: Chronic Assessment and plan: 73 woman due for surveillance colonoscopy in the setting of strong family history. Unclear reason for needing an EGD but it has been requested to be performed prior to her future abdominal wall reconstruction. I am happy to provide that. Unclear how much of the prep she got down since she started vomiting. That may preclude a successful colonoscopy. I did tell the patient she needs to lose a significant amount of weight before she should get her hernia repair performed. Her BMI is 45 and another (7th) abdominal wall surgery is likely to be unsuccessful unless she loses weight. Overall plan: Colonoscopy and EGD History of Present Illness Narrative: 73-year-old woman presents to have colorectal cancer surveillance. Both of her parents from colon cancer. This was she is on such take surveillance. She says her last colonoscopies did not have any findings. I do not have any of those reports. She does not recall when they were done. She is morbidly obese with a BMI of 45. She reports that she has had 6 ventral hernia repair attempts. She now has loss of domain and recurrent abdominal wall ventral hernia. She states that she is being considered for a repeat abdominal wall reconstruction. Reportedly, her abdominal wall surgeon has requested that she have a colonoscopy and endoscopy prior to getting this repair done. The patient does not know why she needs an endoscopy but says I have had many. She got rehydrated overnight in the emergency department because of the bowel prep making her nauseated and vomiting. [facility] All Active Problems (Updated 04/16/24 @ 09:[address]) Hypomagnesemia (Acute) Acute hypokalemia (Acute) Dehydration (Acute) Nausea & vomiting (Acute) Vomiting (Acute) Medication reaction (Acute) Light-headed (Acute) Class 3 drug-induced obesity with serious comorbidity and body mass index (BMI) of 40.0 to 44.9 in adult (Acute) Impairment of speech discrimination (Acute) Shortness of breath (Acute) Conductive hearing loss, external ear (Acute) Impacted cerumen, bilateral (Acute) Diarrhea (Acute) Edema, lower extremity (Acute) Pruritic condition (Acute) Palpitation (Acute) Encounter for postoperative wound check (Acute) Preoperative cardiovascular examination (Acute) Interstitial lung disease (Acute) Chronic abdominal pain (Acute) Tinnitus, bilateral (Acute) Sensorineural hearing loss of both ears (Acute) Elevated hemoglobin A1c (Acute) Family history of colon cancer (Chronic) Syncope (Chronic 10/10/07) Abnormal chest CT (Chronic) Sick sinus syndrome (Chronic) Vitamin D deficiency (Chronic 10/29/14) Ventral hernia without obstruction or gangrene (Chronic) recurrent; Repair; infected mesh 2001 and 2002 chronic abdominal pain Restless legs (Chronic) Pancreatic cyst (Chronic 08/19/15) [facility] GI eval 08/25 EUS ?IPMN, FNA non diagnostic Obstructive sleep apnea syndrome (Chronic) SLEEP STUDY [facility] 03/20 2013 trying oral apparatus Nausea and vomiting (Chronic) Delayed gastric emptying; 07/13-NL Ba swallow; 01/12-EGD=+HH; 01/14-UGI + GERD; 07/1792-[id number] gastropathy 08/16 [facility] delayed gastric emptying due to vertical banded gastroplasty (stomach stapling for obesity) 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) repeat CT at [facility] due Jul 2016 Morbid obesity (Chronic) S/P stomach stapling Malignant neoplasm of female breast (Chronic 03/13/13) Right breast bx at [facility]-+infiltration ductal Ca; + Lymph node; bilateral mastectomy + axillary node dissection Lymphedema of right arm (Chronic 07/11/17) Low back pain (Chronic) Knee pain (Chronic) 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) Impaired fasting glucose (Chronic 10/08/08) Hypothyroidism (Chronic) Hyperlipidemia (Chronic) Hydronephrosis, left (Chronic 08/19/15) incidental finding on abd CT [facility] (f/u [facility] urology) Gastroesophageal reflux disease with esophagitis (Chronic) gastric emptying delay; erosive gastropathy hiatal hernia 08/23/15 [facility]; UPPER EUS Essential hypertension (Chronic 10/22/13) Disorder of vitamin B12 (Chronic) Depressive disorder (Chronic) Dental caries (Chronic 03/09/16) Conductive hearing loss, external ear (Chronic 07/12/16) Cardiac pacemaker in situ (Chronic) Medtronic dual lead pacemaker Original implant 03/15/2008 @ [facility] for syncope/SND Adapta L [id number] RA Medtronic [id number] 03/15/2008 RV Medtronic [id number] 03/15/200808/2020 - Battery depleted. Above generator/pacer replaced - see [facility] for details of pacer. Medical History Refusal of blood transfusions as patient is Gnosticism Swelling of surgical site Pacemaker battery depletion Hyperpigmentation of oral cavity (09/08/13) Lipoma of buttock (03/03/15) Postmenopausal bleeding (02/08/09) Oral mucositis (07/12/16) Impacted cerumen, bilateral (07/12/16) Surgical History History of section Status post carpal tunnel release Status post cholecystectomy Status post hernia repair Status post total knee replacement Replacement of total knee joint 2007 RIGHT 2011 LEFT Stomach Stapled 1989 section X 3 Pacemaker (~2007) Open Carpal Tunnel release 1982 LEFT 1978 RIGHT HERNIA REPAIR X 6 Excision, Lipoma RIGHT HIP Endometrial Biopsy NEG Dilation and curettage Cholecystectomy Breast, Mastectomy Bilateral w/axillary node dissection-right Family History Mother Essential hypertension Diabetes Personal history of malignant neoplasm colon Hyperlipidemia Father Diabetes Personal history of malignant neoplasm colon, skin Sister Hyperlipidemia Sister Myalgia and myositis Sister Personal history of malignant neoplasm ovarian Celiac disease Hyperlipidemia Depression Sister Polycythemia vera Hyperlipidemia Celiac disease Paternal Grandfather Personal history of malignant neoplasm Liver Alcohol abuse Maternal Grandmother Essential hypertension Personal history of malignant neoplasm pancreatic Paternal Grandmother Personal history of malignant neoplasm Leukemia Maternal Grandfather Heart disease Son Depression Son Depression Substance abuse Other Family history of colon cancer Social History Smoking/Tobacco Use Status: Never Smoking risk assessment performed?: Yes Alcohol Intake: never Drug use: Never Substance use type: does not use Housing: apartment What type of physical activity do you participate in: walking Duration: 15-30 minutes/day Frequency: 3-4 times per week Marie/Orthodox: Gnosticism Agree to transfusion: No Do you feel safe at home: Yes Do you feel safe in your relationship?: Yes Additional Social history: lives alone Exam Narrative Exam Narrative: General: Nontoxic, comfortable and interactive, morbidly obese Neuro: Alert and oriented x 3 Psych: Good mood and affect, good insight and understanding into her condition Abdomen: Soft, obese, nondistended, nontender. Results Last Vital Signs Temp 97.3 F L 04/16/24 07:45 Pulse 82 04/16/24 07:45 Resp 16 04/16/24 07:45 BP 116/74 04/16/24 07:45 Pulse Ox 96 04/16/24 07:45
--- NOTE | 2024-04-16 09:54 | STOM_PTH ---
PATIENT: Lulu Zapata LOC: [facility] U#:[id number] AGE/SX: 73/F ROOM: RE04/16/[address]: Kyle Delgado : 1950 BED: DIS: 04/16/2024 SPEC #: [id number] RECD: 04/16/24 12:53 STATUS: BETH RE #: [id number] DINAH: 04/16/24 09:[address]: Kyle Delgado DEPT: Surgical Specimen RECD BY: Shilpi Berkwoitz ENTERED: 04/16/24 12:54 SP TYPE: STOMACH OTHR DR: Silvio Verdugo Tissues: 1 - STOMACH BIOPSY 2 - ESOPHAGUS BIOPSY 3 - BIOPSY BOWEL Procedures: GROSS AND MICRO LEVEL 4 Comments: [id number]
[2024-04-16 10:29] VITALS: BP 97/65; PULSE 76; RESP 14; TEMP 35.8; O2SAT 93
--- NOTE | 2024-04-16 10:48 | COLE_ITS ---
Date of service: 04/16/24 Time of Service: 10:48 Colonoscopy Report Procedure Description: Procedures performed: 1. Colonoscopy with cold forceps biopsies Preoperative diagnosis: Surveillance colonoscopy, strong family history Postoperative diagnosis: Normal terminal ileum, mild sigmoid diverticulosis, grade 1 internal hemorrhoids Surgeon: Jung Delgado MD Indication for procedure: The patient is a 73-year-old woman with a strong family history of colon cancer (both parents from colon cancer). She has had previous colonoscopies that she says were normal. She does not have symptoms. Findings: Normal terminal ileum. I took cold forceps biopsies of the terminal ileum. The right colon is completely normal. No polyps. In the sigmoid colon there are mild/minimal diverticuli present. No inflammation or fibrosis or stricture. No polyps in the left colon either. Retroflexion in the rectum shows grade 1 internal hemorrhoids. Surveillance interval/follow-up: She can consider another colonoscopy in 5 years because of the family history, however I would only recommend this if she is otherwise healthy with a good life expectancy at that time. Specimens: yes Estimated blood loss: Minimal Complications: None Quality of prep: Excellent Procedure in detail: The patient gave written consent and was in agreement with the indications, the potential risks as well as the benefits of the procedure. She was turned from upper endoscopy (see separate procedure note) and anesthesia was continued. I then started the colonoscopy portion of the procedure. Digital rectal and visual examination was performed and grossly within normal limits. A well-lubricated flexible colonoscope was then introduced and passed without any notable difficulty all the way to the cecum identified by the ileocecal valve and the appendiceal orifice. The terminal ileum was deeply intubated and looked normal visually. The scope was then slowly withdrawn with the above-noted findings. The patient tolerated the procedure well and was taken to the PACU in hem odynamically stable condition.
--- NOTE | 2024-04-16 10:48 | W.PM.ENDDOP ---
Date of service: 04/16/24 Time of Service: 10:48 Endoscopy Report PROCEDURE DESCRIPTION: PROCEDURES PERFORMED: 1. EGD with biopsies PREOPERATIVE DIAGNOSIS: Prior foregut bariatric surgery POSTOPERATIVE DIAGNOSIS: Mild gastritis SURGEON: Jung Delgado MD INDICATION FOR PROCEDURE: 73-year-old woman reportedly had gastric bypass surgery in the past. She has loss of domain and a very large ventral hernia and is being considered for surgical repair at an outside hospital. EGD has been requested preoperatively to ensure no foregut problems such as marginal ulcerations, etc. Patient denies any complaints or symptoms. FINDINGS: Patient definitely has NOT had gastric bypass. Perhaps a small sleeve procedure was performed because her fundus is notably small. However, overall she has a pretty average?sized stomach and normal antrum/pylorus. D2/D3 = normal D1/bulb = normal - no ulcers or inflammation Pylorus = normal Antrum = mild gastritis appearance, no ulcers, cold forceps biopsies were taken to rule out H. pylori routinely Body = normal appearance Fundus = notably small, almost as if a fundoplication had been performed, but no visible wrap. No polyps or any inflammation or lesions. Cardia = normal Hiatus = no obvious hiatal hernia - she may have a very small type I sliding hiatal hernia but if so, it is less than a centimeter. Distal esophagus = no inflammation, no esophagitis, no Santana's, no stricture. I took biopsies at the distal esophagus routinely. Mid esophagus = normal Proximal esophagus/hypopharynx/vocal cords = normal SURVEILLANCE-INTERVAL/FOLLOW-UP: I do not see any reason why she would need a repeat EGD. Specimens: Yes EBL: Minimal COMPLICATIONS: None Procedure in detail: The patient gave written consent and was in agreement with the indications, the potential risks as well as the benefits of the procedure. The patient was taken to the endoscopy suite and laid on their left side. Anesthesia was given which was tolerated well. We performed a timeout and we are in agreement I started the procedure. A well-lubricated endoscope was gently and carefully advanced down the esophagus, into the stomach the scope was and through the pylorus into the duodenum. The scope was then slowly withdrawn with the above-noted findings/interventions. The patient tolerated the procedure well and was then turned for colonoscopy (see separate procedure note).
--- NOTE | 2024-04-16 10:48 | W.PM.DSUDISC ---
Date of service: 04/16/24 Time of Service: 10:48 Discharge Plan Disposition Patient Disposition: Home Condition: Good Discharge Details Attending Provider: Kyle Delgado Primary Care Provider: Silvio Verdugo Home Meds and New Rx's Prescriptions: No Action rosuvastatin 5 mg tablet 5 mg PO DAILY levothyroxine 125 mcg tablet 125 mcg PO DAILY Qty: 90 4RF spironolactone 50 mg tablet 100 mg PO DAILY cyanocobalamin (vitamin B-12) 1,000 mcg capsule 1,000 mcg PO DAILY ondansetron 4 mg tablet,disintegrating 4 mg PO Q8H PRNQty: 10 0RF Discharge Instructions Additional Instructions: FINDINGS: On upper endoscopy, no significant findings. Some very mild inflammation consistent with mild gastritis. This may be from taking the prep and vomiting yesterday. Nothing to worry about. On colonoscopy, no polyps were found. Certainly no cancer. You do have mild diverticular disease and mild hemorrhoid disease which is benign, extremely common and nothing needs to be done about it. You can consider to repeat another colonoscopy in 5 years if you have a good life expectancy and are healthy at that time. Stand Alone Forms: Anesthesia Discharge Inst., Andrés Wiclox ([facility]) Activity:: Activity as Tolerated Diet:: As Tolerated DS: Diagnosis Discharge Diagnosis (1) Family history of colon cancer: Status: Chronic
--- NOTE | 2024-04-16 10:59 | W.ANESPOSTOP ---
Postoperative Evaluation Date, Time and Location Date Performed: 04/16/24 Time Performed: 10:59 Patient Location: Day Surgery Unit Vital Signs Most Recent Imported Vital Signs: Most Recent Vital Signs Temp Pulse Resp BP Pulse Ox 35.8 C L 76 14 97/65 L 93 04/16/24 10:29 04/16/24 10:29 04/16/24 10:29 04/16/24 10:29 04/16/24 10:29 Pain Score Most Recent Pain Score: Most Recent Pain Score Pain Level 0 04/16/24 10:29 Assessment Mental Status: Awake (Alert & Oriented to Patient Baseline) Airway and Respiratory Function: Patent airway with normal (patient baseline) respiratory exam Cardiovascular Function: Hemodynamically Stable Hydration Status: Adequately Hydrated Nausea & Vomiting: No Nausea or Vomiting Pain: Pt. Denies Any Pain Peripheral Nerve Block: Patient did not receive a nerve block
[2024-04-16 11:00] VITALS: BP 117/74; PULSE 74; RESP 16; TEMP 36.6; O2SAT 97
== END 2024-04-16 11:35 | disposition home or self-care (01) ==
PROVIDERS: PCP Physician Assistant; Visit Provider Student in an Organized Health Care Education/Training Program
PROC: (CPT 45380; principal; 2024-04-16 09:30)
DX: Z80.0 Family history of malignant neoplasm of digestive organs (principal); I10 Essential (primary) hypertension; Z12.11 Encounter for screening for malignant neoplasm of colon; Z95.0 Presence of cardiac pacemaker; K57.30 Diverticulosis of large intestine without perforation or abscess without bleeding; K64.0 First degree hemorrhoids; K29.70 Gastritis, unspecified, without bleeding; K22.89 Other specified disease of esophagus
CPT/HCPCS: 45380; 43239; 00123; 88305; J2704

== ENCOUNTER 2024-04-27 13:47 | Emergency (ER) | payer MEDICARE, SELFPAY ==
[2024-04-27] VITALS (49 sets, daily range): BP systolic 100–173; BP diastolic 44–119; PULSE 60–99; RESP 15–28; TEMP 36.4; O2SAT 90–98
--- NOTE | 2024-04-27 13:45 | RT.EKG_ITS ---
APPROVED REPORT Exam: Resting ECG Reason for Exam: [facility] Patient Location: E HR:80 bpm ECG Measurements Heart Rate 80 AXIS NV 205 P 49 QRSd 91 QRS -47 QT 362 T 30 QTc 419 Conclusion Sinus rhythm...normal P axis, V-rate 60- 99 Inferior infarct, old...Q >35mS, II III aVF Consider anterior infarct...Q >30mS in V2-V5 no stemi
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
[2024-04-27 14:11] LABS: Abs Immature Grans 0.08 10^3/uL (0.0-0.06); Absolute Basophil Count 0.06 10^3/uL (0.0-0.2); Absolute Lymphocyte Count 2.52 10^3/uL (1.2-3.4); Absolute Monocyte Count 1.01 10^3/uL (0.1-0.8); Absolute Neutrophil Count 6.53 10^3/uL (1.2-6.7); Basophils % 0.6 %; HCT 41.4 % (36.0-46.0); HGB 14.7 g/dL (11.2-15.7); Immature Grans % 0.8 %; Lymphocytes % 24.5 %; MCH 31.8 pg (27.0-33.0); MCHC 35.5 % (32.0-36.0); MCV 90 fL (80-95); MPV 10.1 fL (8.0-11.0); Monocytes % 9.8 %; Neutrophils % 63.3 %; Platelet Count 218 10^3/uL (130-400); RBC 4.62 10^6/uL (3.93-5.22); RDW 12.5 % (11.7-14.6); RDW-SD 40.8 fL
[2024-04-27] MEDS: diazePAM 10 MG/2 ML SYR 2 MG IVP (14:16)
[2024-04-27 14:27] LABS: Anion Gap 12.3 mmol/L (3-11); BUN 14 mg/dL (7-18); CO2 24.7 mmol/L (21.0-32.0); CREATININE 0.8 mg/dL (0.55-1.02); Calcium 9.7 mg/dL (8.5-10.1); Chloride 104 mmol/L (98-107); Estimated GFR 77.75 (mL/min/1.73m2); Glucose 151 mg/dL (74-106); Potassium 3.8 mmol/L (3.5-5.1); Sodium 141 mmol/L (136-145)
[2024-04-27] MEDS: Droperidol 5 MG/2 ML VIAL IVP (14:35)
[2024-04-27] MEDS: Meclizine 25 MG TAB PO (15:35)
[2024-04-27 15:43] LABS: Lipase 49 U/L (16-77)
[2024-04-27] MEDS: diphenhydrAMINE 50 MG/ML VIAL 25 MG IVP (16:09)
[2024-04-27] MEDS: Normal Saline 50 ML 180 ML (16:34)
[2024-04-27] MEDS: Metoclopramide 10 MG/2 ML VIAL 20 MG IVP (16:34)
[2024-04-27] MEDS: DEXTROSE 5%-0.9% SALINE 1,000 ML 100 ML IV (17:12)
[2024-04-27] MEDS: Scopolamine 1 MG/3 DAYS PATCH TD (17:28)
--- NOTE | 2024-04-27 18:49 | NUR.NOTE ---
Pt's son - Will [phone] Nursing Note:
== END 2024-04-27 20:18 | disposition home or self-care (01) ==
PROVIDERS: Emergency Provider Emergency Medicine; PCP Physician Assistant
DX: R42 Dizziness and giddiness (principal); R11.10 Vomiting, unspecified; T38.3X5A Adverse effect of insulin and oral hypoglycemic [antidiabetic] drugs, initial encounter; I10 Essential (primary) hypertension; E03.9 Hypothyroidism, unspecified; E11.9 Type 2 diabetes mellitus without complications; Z79.85 Long-term (current) use of injectable non-insulin antidiabetic drugs
CPT/HCPCS: 36415; 80048; 83690; 93005; 99284; 85025; 93010; J1200; J1790; J2765; J3360; J7042

== ENCOUNTER → 2024-05-27 14:53 | Outpatient (BNVA) | payer MEDICARE, SELFPAY | PROVIDERS: PCP Physician Assistant; Visit Provider Physician Assistant | DX: Z95.810 Presence of automatic (implantable) cardiac defibrillator (principal); I49.5 Sick sinus syndrome | CPT/HCPCS: 93280 ==

== ENCOUNTER 2024-09-28 18:43 | Outpatient (REF) | payer MEDICARE, SELFPAY ==
[2024-09-28 17:57] LABS: Hemoglobin A1C 6.7 % (<5.7)
[2024-09-28 18:03] LABS: ALT 27 U/L (14-59); AST 22 U/L (15-37); Albumin 3.7 g/dL (3.4-5.0); Alkaline Phosphatase 89 U/L (46-116); Anion Gap 9.1 mmol/L (3-11); BUN 13 mg/dL (7-18); Bilirubin, Total 0.79 mg/dL (0.2-1.0); CO2 29.9 mmol/L (21.0-32.0); CREATININE 0.8 mg/dL (0.55-1.02); Calcium 9.5 mg/dL (8.5-10.1); Calculated LDL 90 mg/dL (<100); Chloride 105 mmol/L (98-107); Cholesterol 187 mg/dL (<200); Estimated GFR 77.75 (mL/min/1.73m2); Glucose 137 mg/dL (74-106); HDL Cholesterol 69 mg/dL (40-60); Potassium 4.1 mmol/L (3.5-5.1); Sodium 144 mmol/L (136-145); TSH 1.34 uIU/mL (0.36-3.74); Total Protein 7.1 g/dL (6.4-8.2); Triglyceride 143 mg/dL (<150)
== END 2024-09-28 18:44 | disposition home or self-care (01) ==
LOC: NCHCN 18:43
PROVIDERS: PCP Physician Assistant; Visit Provider Physician Assistant
DX: E03.9 Hypothyroidism, unspecified (principal); R73.03 Prediabetes
CPT/HCPCS: 80053; 80061; 83036; 84443

== ENCOUNTER 2024-11-18 11:06 | Outpatient (REF) | payer MEDICARE, SELFPAY ==
[2024-11-18 15:47] LABS: Anion Gap 7.6 mmol/L (3-11); BUN 11 mg/dL (7-18); CO2 31.4 mmol/L (21.0-32.0); CREATININE 0.9 mg/dL (0.55-1.02); Calcium 9.6 mg/dL (8.5-10.1); Chloride 103 mmol/L (98-107); Estimated GFR 67.08 (mL/min/1.73m2); Glucose 153 mg/dL (74-106); Sodium 142 mmol/L (136-145)
== END 2024-11-18 11:07 | disposition home or self-care (01) ==
LOC: NCHCN 11:06
PROVIDERS: PCP Physician Assistant; Visit Provider Physician Assistant
DX: R60.0 Localized edema (principal)
CPT/HCPCS: 80048

== ENCOUNTER 2024-12-18 06:01 | Day surgery (SDC) | payer MEDICARE, SELFPAY ==
[2024-12-18 06:39] VITALS: BP 125/94; PULSE 78; RESP 16; TEMP 36.4; O2SAT 96
[2024-12-18] MEDS: Tropicam./Phenyleph. (1/2.5%) 5 ML BTL OS ×3 (06:39→06:59)
--- NOTE | 2024-12-18 07:02 | ANES.PREOP_ITS ---
General Info Date of Service Date Performed: 12/18/24 Height: 4 ft 10.5 in Weight: 103.5 kg Body Mass Index (BMI): 46.8 Surgical Procedure: Operation Date: 12/18/24 07:40 Proposed Procedure Side Surgeon p Cataract Extraction with IOL Implant Left Amol Holly MD Meds Allergies and Home Medications Allergies Allergy/AdvReac Type Severity Reaction Status Date / Time Penicillins Allergy Severe Skin Rash Verified 12/18/24 06:46 ciprofloxacin (From Cipro) Allergy Intermediate Skin Rash Verified 12/18/24 06:46 Latex, Natural Rubber Allergy Intermediate Skin Rash Verified 12/18/24 06:46 nickel Allergy Intermediate SWELLING Verified 12/18/24 06:46 furosemide Allergy Unknown Other (See Verified 12/18/24 06:46 Comment) diphenhydramine AdvReac Severe RESTLESSNES Verified 12/18/24 06:46 S ropinirole HCl (From Requip) AdvReac Severe Visual Verified 12/18/24 06:46 Disturbances semaglutide (From Ozempic) AdvReac Severe Other (See Verified 12/18/24 06:46 Comment) duloxetine AdvReac Intermediate DIARRHEA Verified 12/18/24 06:46 lamotrigine AdvReac Intermediate NAUSEA/VOMI Verified 12/18/24 06:46 TING lisinopril AdvReac Intermediate COUGH Verified 12/18/24 06:46 codeine AdvReac Unknown WIRED Verified 12/18/24 06:46 metoclopramide AdvReac Unknown hullucinati Verified 12/18/24 06:46 ons aspertame AdvReac Mild Skin Rash Uncoded 12/18/24 06:46 Home Medication ?Medication ?Instructions ?Recorded levothyroxine 125 mcg tablet 125 mcg PO DAILY #90 tab-caps 02/03/21 rosuvastatin 5 mg tablet 5 mg PO DAILY 08/01/22 cyanocobalamin (vitamin B-12) 1,000 mcg PO DAILY 10/10/23 1,000 mcg capsule spironolactone 50 mg tablet 100 mg PO DAILY 10/10/23 ondansetron 4 mg disintegrating 4 mg PO Q8H PRN #10 tabs 04/01/24 tablet meclizine 25 mg tablet 25 mg PO TID PRN dizziness #14 tabs 04/27/24 furosemide 20 mg tablet 20 mg PO DAILY 12/15/24 metformin 500 mg tablet 500 mg PO DAILY 12/15/24 Current Visit Medications: Current Medications Generic Name Dose Route Start Last Admin Trade Name Toniq PRN Reason Stop Dose Admin Acetaminophen 1,000 mg 12/18/24 06:00 Acetaminophen 500 Mg Tab PO 01/17/25 05:59 Q4H PRN PRN Balanced Salt Solution 500 ml 12/18/24 06:00 Balanced Salt Soln.-Plus 500 Ml Bag OP 01/17/25 05:59 DIRECTED [facility] Miscellaneous Medication 0 ml 12/18/24 06:00 Prednisolone 1%, Moxifloxacin 0.5%, Bromfenac 0.09% 5.6ml Btl OS 01/17/25 05:59 DIRECTED [facility] Miscellaneous Medication 0 ml 12/18/24 06:00 Tropicam./Phenyleph. (1/2.5%) 5 Ml Btl OS 01/17/25 05:59 DIRECTED [facility] Tetracaine HCl 0 ml 12/18/24 06:00 Tetracaine 0.5% 4 Ml Btl OS 01/17/25 05:59 DIRECTED [facility] PFSH Active Problems Active Problems: Problem Status Onset Code Cortical age-related cataract, left eye Acute H25.012 Nuclear age-related cataract, left eye Acute H25.12 Class 3 drug-induced obesity with serious comorbidity and body mass index (BMI) of 40.0 to 44.9 in adult Acute E66.1, Z68.41 Impairment of speech discrimination Acute H93.299 Shortness of breath Acute R06.02 Conductive hearing loss, external ear Acute H90.2 Impacted cerumen, bilateral Acute H61.23 Diarrhea Acute R19.7 Edema, lower extremity Acute R60.0 Pruritic condition Acute L29.9 Palpitation Acute R00.2 Encounter for postoperative wound check Acute Z48.89 Preoperative cardiovascular examination Acute Z01.810 Interstitial lung disease Acute J84.9 Chronic abdominal pain Acute R10.9, G89.29 Tinnitus, bilateral Acute H93.13 Sensorineural hearing loss of both ears Acute H90.3 Elevated hemoglobin A1c Acute R73.09 Family history of colon cancer Chronic Z80.0 Syncope Chronic 10/10/[address] Chronic R93.89 Sick sinus syndrome Chronic I49.5 Vitamin D deficiency Chronic 12/19/14 E55.9 Ventral hernia without obstruction or gangrene Chronic K43.9 Restless legs Chronic G25.81 Pancreatic cyst Chronic 08/19/15 K86.2 Obstructive sleep apnea syndrome Chronic G47.33 Nausea and vomiting Chronic R11.2 Myelolipoma of left adrenal gland Chronic 08/19/15 D17.79 Morbid obesity Chronic E66.01 Malignant neoplasm of female breast Chronic 03/13/13 C50.919 Lymphedema of right arm Chronic 07/11/17 I89.0 Low back pain Chronic M54.5 Knee pain Chronic M25.569 Impaired fasting glucose Chronic 10/08/08 R73.01 Hypothyroidism Chronic E03.9 Hyperlipidemia Chronic E78.5 Hydronephrosis, left Chronic 08/19/15 N13.30 Gastroesophageal reflux disease with esophagitis Chronic K21.0 Essential hypertension Chronic 10/22/13 I10 Disorder of vitamin B12 Chronic E53.8 Depressive disorder Chronic F32.9 Dental caries Chronic 03/09/16 K02.9 Conductive hearing loss, external ear Chronic 07/12/16 H90.2 Cardiac pacemaker in situ Chronic Z95.0 Medical History Medical History Family hx of ovarian malignancy Family history of colon cancer in mother Family history of colon cancer in father Refusal of blood transfusions as patient is [employer] Swelling of surgical site Pacemaker battery depletion Hyperpigmentation of oral cavity (09/08/13) Lipoma of buttock (03/03/15) Postmenopausal bleeding (02/08/09) Oral mucositis (07/12/16) Impacted cerumen, bilateral (07/12/16) Medical History Comments:: Mom and sister delayed emergence Surgical History Surgical History History of colonoscopy (~04/2024) History of section Status post carpal tunnel release Status post cholecystectomy Status post hernia repair Status post total knee replacement Replacement of total knee joint 2007 RIGHT 2010 LEFT Stomach Stapled 1989 section X 3 Pacemaker (~2007) Open Carpal Tunnel release 1982 LEFT 1978 RIGHT HERNIA REPAIR X 6 Excision, Lipoma RIGHT HIP Endometrial Biopsy NEG Dilation and curettage Cholecystectomy Breast, Mastectomy Bilateral w/axillary node dissection-right Tobacco Smoking/Tobacco Use Status: Never Passive smoking exposure: Yes Alcohol Alcohol Intake: never Substance Use Substance use: Never Substance use type: does not use Vital Signs and Lab Results Vital Signs Most Recent Vital Signs in EMR: Most Recent Vital Signs Temp Pulse Resp BP Pulse Ox 36.4 C L 78 16 125/94 H 96 12/18/24 06:39 12/18/24 06:39 12/18/24 06:39 12/18/24 06:39 12/18/24 06:39 Point of Care Results Point of Care Results: Finger Stick Blood Glucose 157 12/18/24 06:50 Lab Results Blood Type / Crossmatch: No Data to Display Complete Blood Count: No Data to Display Complete Metabolic Panel: Sodium 142 mmol/L (136-145) 11/18/24 10:59 Potassium 4.0 mmol/L (3.5-5.1) 11/18/24 10:59 Chloride 103 mmol/L (98-107) 11/18/24 10:59 Carbon Dioxide 31.4 mmol/L (21.0-32.0) 11/18/24 10:59 BUN 11 mg/dL (7-18) 11/18/24 10:59 Creatinine 0.9 mg/dL (0.55-1.02) 11/18/24 10:59 Est GFR (CKD-EPI 2020) 67.08 (mL/min/1.73m2) 11/18/24 10:59 Calcium 9.6 mg/dL (8.5-10.1) 11/18/24 10:59 Glucose 153 mg/dL (74-106) H 11/18/24 10:59 Liver Function Panel: No Data to Display Coagulation Panel: No Data to Display Cardiac Panel: No Data to Display Arterial Blood Gas: No Data to Display Venous Blood Gas: No Data to Display Pancreas Panel: No Data to Display Thyroid Panel: No Data to Display Infectious Disease: No Data to Display Blood Cultures: No Data to Display Toxicology Panel: No Data to Display Imaging and Studies Imaging and Studies Study information below may be from another EMR and interpreted by another provider. Please see original notes in EMR for more complete details. EKG Summary: DATE/TIME OF SERVICE: 04/15/24 2322 : 1950 PERFORMING LOCATION: ER APPROVED REPORT Exam: Resting ECG Reason for Exam: vomiting Patient Location: E HR:84 bpm ECG Measurements Heart Rate 84 AXIS DC 212 P 74 QRSd 106 QRS -38 QT 404 T50 QTc 479 Conclusion Sinus rhythm...normal P axis, V-rate 60- 99 Borderline prolonged DC interval...DC >212, V-rate 50- 90 Left axis deviation...QRS axis (-30,-90) Stress Test Summary: 05/2020: Stress ECG Conclusion 1. The resting electrocardiogram was within normal limits 2. Patient exercised on the Ru protocol and completed a workload of 3.56 METS. This demonstrates poor exercise tolerance. 3. Rapid heart rate increase with activity suggests deconditioning. The patient did achieve 91% of predicted heart rate for age 4. Normal blood pressure response to exercise 5. Electrocardiographically the test was negative for myocardial ischemia 6. There were no significant dysrhythmias Echocardiogram Summary: Date of Exam: 09/25/22 Sex: F Admission Date: 09/25/22 : 1950 Age: 71 APPROVED REPORT EXAM: Comprehensive 2D, Doppler, and color-flow Echocardiogram Patient Location: Out-Patient Machine Ironer: Sabrina Sanchez RDCS (AE) Indications: Evaluate LV and RV function, SOB, Pacemaker Other Information Study Quality: Adequate. Technically limited study due to body habitus, inability to position patient exam done supine. Conclusion Normal left ventricular wall thickness and chamber size. Estimated ejection fraction is 60 to 65%. Wall motion is normal Normal right ventricular size and systolic function Both atria are normal in size Device lead noted in the right heart Aortic valve is trileaflet and sclerotic without stenosis or regurgitation Normal tricuspid valve with moderate regurgitation. Estimated right ventricular systolic pressure is 28 mmHg Dilated ascending aorta measuring 4.05 cm Pulmonary Function Summary: DATE OF ADMIT: 02/04/18 : 1950 INTERPRETATION SPIROMETRY: Spirometry shows no evidence of obstructive airways disease. No bronchodilator response. LUNG VOLUMES: Lung volumes show no evidence of restriction. DIFFUSION CAPACITY: Mildly elevated. AIRWAY RESISTANCE: Elevated. IMPRESSION: Isolated elevation in diffusion capacity. This can be seen in early asthma. This is further substantiated by mild elevation in airways resistance. Therefore, if the diagnosis of asthma is suspected, proceeding with Methacholine challenge testing may prove to be useful. Anesthesia Assessment and Plan Anesthesia History Personal History: No History of Anesthesia Complications Family History: Other Exercise Tolerance Exercise Tolerance: Metabolic Equivalents>4 Pertinent Negatives Pertinent Negatives: No Symptoms of GERD Cardiac & Pulmonary Exam Cardiac Exam: Normal S1/S2 Heart Sounds Pulmonary Exam: Clear Bilateral Breath Sounds Implantable Cardiac Device Does patient have a Pacemaker or an ICD?: Yes Device Commonwealth Attorney:: Palringo Reason for Placement:: [facility] Date of Last Device Interrogation:: 11/15/24 Airway Exam Known Difficult Airway: No Mallampati Class: 2 Mouth Opening: Normal (> 3cm) Thyromental Distance: Less than 3 cm Neck Range of Motion: Full ROM Neck Circumference: Normal Teeth Condition: Removable Dentures/Plates Upper ASA Classification ASA Score: ASA 3 Emergency Case?: No NPO Status NPO Status: NPO Clears >2 hours, Solids >8 hours Anesthesia Plan Resuscitation Status: Full Code Anesthesia Technique: MAC Anesthesia Airway Planned: Natural Airway Monitors Used: Standard Monitors
[2024-12-18 07:04] VITALS: BMI 46.8
[2024-12-18] MEDS: Tetracaine 0.5% 4 ML BTL OS (07:36)
[2024-12-18] MEDS: Povidone-Iodine Ophth 30 ML BTL (07:37)
[2024-12-18] MEDS: Balanced Salt Soln.-PLUS 500 ML BAG OP (07:42)
[2024-12-18] MEDS: Lidocaine 1% Pres-Free 5 ML VIAL (07:43)
[2024-12-18] MEDS: Phenylephrine/Lidocaine (15/10) MG/ML 1 ML VIAL (07:43)
[2024-12-18] MEDS: Duovisc Viscoelastic System EACH 1 EACH (07:44)
[2024-12-18] MEDS: Moxifloxacin-PF 1 MG/ML VIAL (07:56)
[2024-12-18] MEDS: Prednisolone 1%, Moxifloxacin 0.5%, Bromfenac 0.09% 5.6ML BTL OS (07:57)
--- NOTE | 2024-12-18 08:05 | W.PM.DSUDISC ---
Date of service: 12/18/24 Discharge Plan Disposition Patient Disposition: Home Discharge Details Attending Provider: Amol Holly Primary Care Provider: Silvio Verdugo Home Meds and New Rx's Prescriptions: No Action rosuvastatin 5 mg tablet 5 mg PO DAILY levothyroxine 125 mcg tablet 125 mcg PO DAILY Qty: 90 4RF spironolactone 50 mg tablet 100 mg PO DAILY cyanocobalamin (vitamin B-12) 1,000 mcg capsule 1,000 mcg PO DAILY furosemide 20 mg tablet 20 mg PO DAILY metformin 500 mg tablet 500 mg PO DAILY ondansetron 4 mg tablet,disintegrating 4 mg PO Q8H PRNQty: 10 0RF meclizine 25 mg tablet 25 mg PO TID PRN (Reason: dizziness) Qty: 14 0RF Discharge Instructions Stand Alone Forms: DSU Post-Op CataractAndrés (DSU) Discharge Orders Discharge Orders: Discharge Order (Routine); Ordered 12/18/24 Ordered By: Amol Holly DS: Diagnosis Discharge Diagnosis (1) Cortical age-related cataract, left eye: Status: Resolved (2) Nuclear age-related cataract, left eye: Status: Resolved
[2024-12-18 08:08] VITALS: BP 122/75; PULSE 84; RESP 17; TEMP 36.5; O2SAT 95
--- NOTE | 2024-12-18 08:26 | W.ANESPOSTOP ---
Postoperative Evaluation Date, Time and Location Date Performed: 12/18/24 Time Performed: 08:26 Patient Location: Day Surgery Unit Vital Signs Most Recent Imported Vital Signs: Most Recent Vital Signs Temp Pulse Resp BP Pulse Ox 36.5 C 84 17 122/75 95 12/18/24 08:08 12/18/24 08:08 12/18/24 08:08 12/18/24 08:08 12/18/24 08:08 Pain Score Most Recent Pain Score: Most Recent Pain Score Pain Level 0 12/18/24 08:08 Assessment Mental Status: Awake (Alert & Oriented to Patient Baseline) Airway and Respiratory Function: Patent airway with normal (patient baseline) respiratory exam Cardiovascular Function: Hemodynamically Stable Hydration Status: Adequately Hydrated Nausea & Vomiting: No Nausea or Vomiting Pain: Pt. Denies Any Pain Peripheral Nerve Block: Patient did not receive a nerve block
--- NOTE | 2024-12-25 12:29 | ROE_ITS ---
Operative Note Operative Note PRE-OP DIAGNOSIS: Nuclear/cortical cataract, left eye POST-OP DIAGNOSIS: same PROCEDURE: Cataract extraction using phacoemulsification with intraocular lens implant, left eye SURGEON: Amol Holly ANESTHESIA TYPE: Local By Surgeon and MAC Refer to Anesthesia Record PATHOLOGY: none sent COMPLICATIONS: None Patient was transported to: same day Patient's condition: stable Implants: Jv Clareon [id number] Indications: Progressive decreased vision due to cataract, left eye Procedure Description: CATARACT SURGERY OPERATIVE REPORT PREOPERATIVE DIAGNOSIS: Nuclear/cortical cataract, left eye POSTOPERATIVE DIAGNOSIS: Same OPERATION: Cataract extraction using phacoemulsification with posterior chamber intraocular lens implant, left eye. IOL: IOL Network Design Architect/Model: Jv Clareon [id number] IOL Power: + 18.5 diopters IOL Serial Number: [id number] Optic Diameter: 6.0mm Haptic/Overall Diameter: 13.0mm PHACO INFO: Jv Centurion Vision System with OZil and Active Fluidics Cumulative Dispersed Energy (CDE): 11.77 seconds SURGEON: Amol Holly MD, MARTIN ANESTHESIA: Monitored Anesthesia Care (MAC), with local sub-tenon's anesthetic infiltration COMPLICATIONS: None SPECIMENS: None INDICATIONS FOR PROCEDURE: The patient is a 74-year-old lady with history of diminished visual acuity in her left eye secondary to the development of nuclear/cortical cataract. She is significantly symptomatic that she desires cataract surgery in attempt to improve and maximize her vision. The option of cataract surgery was offered to the patient and she wished to proceed. See office notes for detailed information. PROCEDURE: The correct surgical eye was identified and marked as the left eye and the pupil was dilated in the preoperative area using mydriatics and cycloplegics. The dilated pupil size was 6.0 mm. The patient elected to proceed without oral sedation. The patient was brought to the operating room where cardiopulmonary monitoring was instituted and surgical time-out was performed, confirming the correct operative eye and IOL power. Topical anesthesia was administered and ophthalmic povidone-iodine 5% was instilled into the conjunctival fornices. The bhavik-ocular area was prepped with Betadine 10% solution and draped in the usual sterile fashion for intraocular surgery, including an aperture drape. A Tegaderm transparent film dressing was cut in half and used to cover the lashes and lid margins. Care was taken to sequester the lashes and lid margins under the Tegaderm dressing. A lid speculum was placed between the lids of the operative eye and the Jv LuxOR Revalia operating microscope was maneuvered into position. Josh scissors were then used to make a conjunctival buttonhole approximately 6mm posterior to the limbus in the inferonasal quadrant. Blunt dissection was carried out to expose bare sclera, and a blunt-tipped sub-tenon?s anesthesia cannula was introduced and passed posteriorly along the globe where non- preserved plain lidocaine was injected into posterior sub-Tenon?s space. A sideport knife was used to make a paracentesis port. Intraocular phenylephrine/lidocaine was injected into the anterior chamber. The anterior chamber was then filled with viscoelastic. A keratome knife was used construct a two-plane clear corneal tunnel extending 2.0mm into clear cornea. A flap was raised on the anterior capsule and capsulorhexis forceps were used to complete a continuous curvilinear capsulorhexis of 5.5 mm. Balanced salt solution was then used to perform cortical cleaving hydrodissection and nuclear hydrodelineation until the lens could be freely rotated within the capsular bag. The lens nucleus was then disassembled and removed within the capsular bag and iris plane using phacoemulsification. Residual cortical material was removed using the irrigation/aspiration handpiece. The posterior capsule was carefully polished to remove as much residual lens epithelial cells as safely possible. The capsular bag was then inflated and the anterior chamber deepened with viscoelastic. The lens implant described above was inserted into the capsular bag using the Jv Autonome Injector. A Kuglen hook was used to dial the IOL into position. Residual viscoelastic was then removed first from posterior to the IOL, then from the anterior chamber using the I/A handpiece. The lens implant was noted to center nicely within the capsular bag. The incisions were stromally hydrated, and the anterior chamber was reformed using BSS. Then 0.5cc of moxifloxacin 1.0mg/ml were injected into the capsular bag and anterior chamber. The incisions were checked with a Weck spear and found to be secure. Several drops of ophthalmic povidone-iodine 5% were then applied to the eye followed by two drops of combination steroid/NSAID/antibiotic solution. The drapes were removed and a clear plastic protective eye shield was placed over the eye. The patient was then returned to Same Day Surgery in stable condition. Date of Procedure: 12/18/24
== END 2024-12-18 08:19 | disposition home or self-care (01) ==
LOC: SUR 06:01
PROVIDERS: PCP Physician Assistant; Visit Provider Ophthalmology
PROC: (CPT 66984; principal; 2024-12-18 07:30)
DX: H25.012 Cortical age-related cataract, left eye (principal); H25.12 Age-related nuclear cataract, left eye; I10 Essential (primary) hypertension
CPT/HCPCS: 66984; 00123; V2632; J2003

== ENCOUNTER 2025-04-13 13:42 | Outpatient (CLI) | payer MEDICARE, SELFPAY ==
[2025-04-13 14:12] LABS: Hemoglobin A1C 6.6 % (<5.7)
[2025-04-13 14:45] LABS: Anion Gap 9.9 mmol/L (3-11); BUN 11 mg/dL (7-18); CO2 28.1 mmol/L (21.0-32.0); CREATININE 0.8 mg/dL (0.55-1.02); Calcium 9.2 mg/dL (8.5-10.1); Chloride 101 mmol/L (98-107); Estimated GFR 77.27 (mL/min/1.73m2); Ferritin 138 ng/mL (8-252); Folate 6.2 ng/mL (8.6-20.0); Glucose 181 mg/dL (74-106); Magnesium 1.6 mg/dL (1.8-2.4); Potassium 3.5 mmol/L (3.5-5.1); Sodium 139 mmol/L (136-145)
[2025-04-13 15:00] LABS: Iron 67 ug/dL (50-170); Total Iron Binding Capacity 361 ug/dL (250-450); Transferrin Sat 19 % (15-50)
[2025-04-13 15:24] LABS: Vitamin D 25 Total 52 ng/mL (30-100)
[2025-04-16 15:05] LABS: Thiamine (Vitamin B1), WB 109 nmol/L (70-180)
[2025-04-16 23:56] LABS: Free Retinol (Vitamin A) 37.6 mcg/dL (32.5-78.0)
== END 2025-04-13 13:43 | disposition home or self-care (01) ==
LOC: LBO 13:43
PROVIDERS: PCP Physician Assistant; Visit Provider Physician Assistant
DX: K43.9 Ventral hernia without obstruction or gangrene (principal)
CPT/HCPCS: 36415; 80048; 82306; 82728; 82746; 83036; 83540; 83550; 83735; 84425; 84590

== ENCOUNTER 2025-05-26 08:09 | Outpatient (CLI) | payer MEDICARE, SELFPAY | END 2025-05-26 08:10 | disposition home or self-care (01) | LOC: DI.CARD 08:16 | PROVIDERS: PCP Physician Assistant; Visit Provider Registered Nurse | CPT/HCPCS: 93010 ==

== ENCOUNTER → 2025-05-26 14:17 | Outpatient (BNVA) | payer MEDICARE, SELFPAY | PROVIDERS: PCP Physician Assistant; Visit Provider Registered Nurse | DX: I49.5 Sick sinus syndrome (principal); R00.2 Palpitations; Z45.018 Encounter for adjustment and management of other part of cardiac pacemaker; Z79.02 Long term (current) use of antithrombotics/antiplatelets | CPT/HCPCS: 93280 ==

== ENCOUNTER 2025-07-14 15:21 | Outpatient (REF) | payer MEDICARE, SELFPAY ==
[2025-07-14 17:17] LABS: COMMENT (LAB VIEW ONLY) < 13.00 mg/dL
== END 2025-07-14 15:22 | disposition home or self-care (01) ==
LOC: NCHCN 15:21
PROVIDERS: PCP Physician Assistant; Visit Provider Physician Assistant
DX: I10 Essential (primary) hypertension (principal)
CPT/HCPCS: 82043; 82570

== ENCOUNTER 2025-08-05 16:59 | Outpatient (REF) | payer MEDICARE, SELFPAY | END 2025-08-05 17:00 | disposition home or self-care (01) | LOC: NCHCN 16:59 | PROVIDERS: PCP Physician Assistant; Visit Provider Physician Assistant | DX: N89.8 Other specified noninflammatory disorders of vagina (principal) | CPT/HCPCS: 87480; 87510; 87660 ==

== ENCOUNTER 2025-10-06 07:59 | Outpatient (CLI) | payer MEDICARE, SELFPAY ==
--- NOTE | 2025-10-06 07:45 | RT.EKG_ITS ---
APPROVED REPORT Exam: Resting ECG Reason for Exam: sick sinus syndrome Patient Location: O HR:84 bpm ECG Measurements Heart Rate 84 AXIS NM 201 P -32 QRSd 100 QRS -49 QT 381 T 28 QTc 451 Conclusion Sinus rhythm...normal P axis, V-rate 50- 99 Left anterior fascicular block...axis(240,-40), init forces inf Baseline wander in lead(s) V2
== END 2025-10-06 08:00 | disposition home or self-care (01) ==
LOC: DI.CARD 08:00
PROVIDERS: PCP Physician Assistant; Visit Provider Registered Nurse
DX: I49.5 Sick sinus syndrome (principal); R00.2 Palpitations; Z95.0 Presence of cardiac pacemaker; I44.4 Left anterior fascicular block
CPT/HCPCS: 93010

== ENCOUNTER → 2025-10-06 10:08 | Outpatient (BNVA) | payer MEDICARE, SELFPAY | PROVIDERS: PCP Physician Assistant; Visit Provider Registered Nurse | DX: R07.9 Chest pain, unspecified (principal); R06.02 Shortness of breath; I49.5 Sick sinus syndrome; R00.2 Palpitations; Z95.0 Presence of cardiac pacemaker; I10 Essential (primary) hypertension; Z79.02 Long term (current) use of antithrombotics/antiplatelets; Z79.899 Other long term (current) drug therapy | CPT/HCPCS: 93005; 99214 ==

== ENCOUNTER 2025-10-25 13:15 | Outpatient (REF) | payer MEDICARE, SELFPAY ==
[2025-10-25 15:32] LABS: TSH 0.34 uIU/mL (0.55-4.78)
[2025-10-25 16:43] LABS: Anion Gap 9.6 mmol/L (3-11); BUN 13 mg/dL (9-23); CO2 29.4 mmol/L (20.0-31.0); Calcium 9.5 mg/dL (8.3-10.6); Chloride 104 mmol/L (98-107); Cholesterol 156 mg/dL (<200); Glucose 135 mg/dL (74-106); HDL Cholesterol 61 mg/dL (>40); Potassium 3.9 mmol/L (3.5-5.1); Sodium 143 mmol/L (136-145)
== END 2025-10-25 13:16 | disposition home or self-care (01) ==
LOC: NCHCN 13:15
PROVIDERS: PCP Physician Assistant; Visit Provider Physician Assistant
DX: E78.5 Hyperlipidemia, unspecified (principal); E03.9 Hypothyroidism, unspecified; I10 Essential (primary) hypertension
CPT/HCPCS: 80048; 80061; 84443

== ENCOUNTER → 2025-10-27 00:09 | Outpatient (CLI) | payer MEDICARE, SELFPAY ==
--- NOTE | 2025-10-27 07:30 | DI.US_ITS ---
APPROVED REPORT EXAM: Comprehensive 2D, Doppler, and color-flow Echocardiogram Patient Location: Out-Patient Plater Production: Sabrina Sanchez RDCS (AE) Indications: SOB, Chest pain Other Information Study Quality: Adequate Conclusion Normal left ventricular wall thickness and chamber size. Ejection fraction is 60%. Wall motion is normal Normal right ventricular size and function Both atria are normal in size Device lead noted in the right heart The aortic valve is sclerotic and trileaflet without stenosis or regurgitation Mild mitral annular calcification Mild tricuspid regurgitation. Estimated right ventricular systolic pressure is 30 mmHg Ascending aorta measures 4 cm Wall motion Left Ventricle The left ventricle is normal size. The left ventricular systolic function is normal. The left ventricular ejection fraction is within the normal range. There is normal left ventricular wall thickness. There is normal LV segmental wall motion. There is no ventricular septal defect visualized. LVEF is 60%. Right Ventricle The right ventricle is normal size. The right ventricular systolic function is normal. Pacemaker lead is present in the right ventricle. Atria The left atrium size is normal. The right atrium size is normal. The interatrial septum is intact with no evidence for an atrial septal defect. Aortic Valve The Aortic valve is sclerotic. Aortic valve is trileaflet. There is no aortic valvular stenosis. No aortic regurgitation is present. Mitral Valve Mild mitral annular calcification. No evidence of mitral valve stenosis. Trace mitral regurgitation. Tricuspid Valve The tricuspid valve is normal in structure. There is no tricuspid valve stenosis. Mild tricuspid regurgitation. The RVSP is 29.7 mmHg. Pulmonic Valve The pulmonary valve is normal in structure. There is no pulmonic valvular stenosis. There is no pulmonic valvular regurgitation. Great Vessels The aortic root is normal in size. The ascending aorta is moderately dilated. Aortic arch is not well visualized. IVC is normal in size and collapses >50% with inspiration. Pericardium There is no pericardial effusion. 2D Dimensions IVSD d PLAX 0.90 cm F: 0.6-1.0 Ao Root d 3.10 cm F: 2.7 - 3.3 LVPW d PLAX 0.90 cm F: 0.6 - 1.0 Ao Asc Diam d 4.00 cm F: 2.3 - 3.1 LVID d PLAX 4.24 cm F: 3.8 - 5.2 LVDs 2.92 cm F: 2.2 - 3.5 LV EF Teichholz 59.3 % FS 31.20 % LV EDV (Teich) 80.3 mL LV ESV (Teich) 32.6 mL M-Mode TAPSE 2.13 cm (M/F) >1.7 Auto EF LV EDV A4C 95.4 mL LV EDV A2C 83.7 mL LV EDV BP 88.7 mL LV ESV A4C 36.3 mL LV ESV A2C 29.6 mL LV ESV BP 32.8 mL LVEF(%) A4C 61.9 % LVEF(%) A2C 64.6 % LVEF(%) BP 63.1 % LV SV A4C 59.1 ml LV SV A2C 54.1 ml LV SV BP 55.9 ml LV CO A4C 4.1 L/min LV CO A2C 3.7 L/min LV CO BP 3.9 L/min HR A4C 68.84 BPM HR A2C 67.64 BPM LV EDV Index (BP) LA Volume LA Length A4C 4.5 cm LA Length A2C 4.9 cm LA Area A4C s 16.02 cm2 LA Area A2C s 14.84 cm2 LA Vol A4C A-L 47.98 mL LA Vol A2C A-L 37.78 mL LA Vol Biplane A-L 44.4 mL LA Vol/BSA A4C A-L LA Vol/BSA A2C A-L LA Vol/BSA BP A-L 23.8 mL/m2 LA Vol A4C MOD 43.7 mL LA Vol A2C MOD 35.6 mL LA Vol BP MOD 40.8 mL RA Volume RA Area A4C 9.7 cm2 RA ESV A4C (A-L) 20.4mL RA Vol/BSA A4C A-L RA Length A4C 3.9 cm RA ESV A4C (MOD) 19.4mL LV Diastology MV E' medial 0.072 (>0.07 m/s) MV E Vmax 0.72 (0.4-1.3 m/s) MV E/E' MED 10.03 (<14) MV A Vmax 0.85 (0.4-1.3 m/s) MV E' lateral 0.098 (>0.1 m/s) E/A Ratio 0.8 MV E/E' LAT 7.37 (<14) MV E' Average 0.085 m/s MV E/E'(average) 8.50 Aortic Valve AoV Vmax 1.52 m/s LVOT Vmax 0.92 m/s AoV Peak Grad 9.3 mmHg LVOT Peak Grad 3.4 mmHg AoV Area (Vmax) 1.90 cm2 LVOT VTI 0.206 m AoV VTI 0.339 m LVOT Mean Grad 2.0 mmHg AoV Mean Maico. 1.07 m/s LVOT SV 64.58 mL AoV Mean Grad 5.2 mmHg LVOT Diam s 2.00 cm AoV Area (VTI) 1.91 cm2 AV Regurg Peak Gr. 9.30 mmHg Velocity Ratio 0.61 Mitral Valve MV DT 210 (160-240 msec) MV Vmax TIPS 0.86 m/s MV Mean Grad 1.4 (<2mmHg) MV VTI 0.312 m Pulmonary Valve PV Vmax 1.03 (0.5-1.5 m/s) RVOT Vmax 0.81 m/s PV Peak Grad 4.2 mmHg RVOT Peak Gr. 2.6 mmHg PV Mean Maico 0.71 m/s RVOT VTI 0.171 m PV Mean Grad 2.3 mmHg RVOT Mean Gr. 1.4 mmHg Tricuspid Valve RA Pressure 3.00 mmHg TR Vmax 2.58 m/s TV S' 0.12 m/s TR Peak Grad 26.7 mmHg RVSP (TR) 29.7 mmHg
== END ==
LOC: DI 00:09
PROVIDERS: PCP Physician Assistant; Visit Provider Registered Nurse
DX: R06.02 Shortness of breath (principal); R07.9 Chest pain, unspecified; Z95.811 Presence of heart assist device; I08.3 Combined rheumatic disorders of mitral, aortic and tricuspid valves
CPT/HCPCS: 93306